=== PATIENT | male | born 1950 | race Caucasian/White ===

== ENCOUNTER → 2021-04-21 13:51 | Outpatient (CLI) | payer MEDICARE, BC, SELFPAY ==
[2021-04-21 15:15] LABS: Basophils # 0.1 K/mm3 (0-0.2); Eosinophils # 0.1 K/mm3 (0.0-0.4); Eosinophils % 1.3 % (0.1-12.0); Hematocrit 46.6 % (42.0-52.0); Hemoglobin 15.3 g/dL (14.1-18.0); Lymphocytes # 1.4 K/mm3 (0.7-4.5); Lymphocytes % 27.7 % (10-50); Mean Corpuscular HGB Conc 32.9 g/dL (31.8-35.4); Mean Corpuscular Hemoglobin 31.5 pg (27.0-31.2); Mean Corpuscular Volume 95.8 fl (80-94); Mean Platelet Volume 8.4 fl (7.4-10.4); Monocytes # 0.4 K/mm3 (0.1-1.0); Monocytes % 7.9 % (1.7-9.3); Neutrophils # 3.2 K/mm3 (1.8-7.8); Neutrophils % 62.1 % (37.0-80.0); Platelet Count 289 K/mm3 (142-424); Red Blood Count 4.87 M/mm3 (4.60-6.20); Red Cell Distribution Width 13.5 % (11.5-17.5); White Blood Count 5.1 K/mm3 (4.8-10.8)
[2021-04-21 16:06] LABS: Chloride 100 mmol/L (98-107); Potassium 4.2 mmoL/L (3.5-5.1)
[2021-04-21 16:08] LABS: Alanine Aminotransferase 17 U/L (12-78); Aspartate Amino Transferase 34 U/L (17-59); Blood Urea Nitrogen 21 mg/dl (9-20); Estimated Glomerular Filt Rate 83 ml/min (>60); GFR (African American) 100 ML/MIN (>60)
[2021-04-21 16:09] LABS: Albumin Level 4.4 g/dl (3.5-5.0); Albumin/Globulin Ratio 1.9 (1.1-1.8); Alkaline Phosphatase 48 U/L (38-126); Bilirubin,Total 0.8 mg/dl (0.2-1.3); Calcium 8.5 mg/dl (8.4-10.2); Carbon Dioxide 30 mmol/L (22.0-30.0); Cholesterol 105 mg/dl (140-200); Globulin 2.3 g/dL (1.3-3.2); Glucose 78 mg/dl (74-100); HDL Cholesterol 35 mg/dl (40-60); Total Protein,Serum 6.7 g/dl (6.3-8.2); Triglycerides 67 mg/dl (30-150); VLDL Cholesterol 13 mg/dL (0-40)
[2021-04-21 16:20] LABS: Direct LDL Cholesterol 60.39 mg/dL (100-129)
[2021-04-21 16:30] LABS: Anion Gap 10.2 mEq/L (5-15); Sodium 136 mmol/L (136-145)
== END ==
PROVIDERS: Visit Provider Internal Medicine
DX: I25.10 Atherosclerotic heart disease of native coronary artery without angina pectoris (principal); I10 Essential (primary) hypertension; I73.9 Peripheral vascular disease, unspecified; E78.5 Hyperlipidemia, unspecified; N40.1 Benign prostatic hyperplasia with lower urinary tract symptoms; Z95.1 Presence of aortocoronary bypass graft
CPT/HCPCS: 80053; 80061; 85025

== ENCOUNTER 2021-07-26 10:54 | Emergency (ER) | payer MEDICARE, OTHER, SELFPAY ==
--- NOTE | 2021-07-26 11:15 | HMH.EDUTC ---
[facility] Disposition Clinical Impression: Exposure to COVID-19 virus Disposition: Home, Self-Care Condition on Discharge: Good Instructions: DI for COVID-19 (Suspected or Confirmed ), Preventing the Spread of Coronavirus Discharge Instructions Additional Instructions: Drink plenty of fluids. Take tylenol for pain or fever. Return if you begin to have difficulty breathing. Follow up with your regular doctor. GO TO THE ER FOR ANY WORSENING SYMPTOMS Quarantine until you know the results of your covid-19 test. If it is positive, the health department should call you and give you further instructions about your length of Quarantine and other things. Notify your school or workplace of your results and follow their instructions regarding return to work/school. Referrals: Renan Rosas MD [Primary Care Provider] - Time of Disposition: 11:24 Medical Decision Making - Medical Records Medical records reviewed: No: I reviewed the patient's medical records. - Sj Inquiry Pt receiving controlled substance: No Vital Signs: 07/26/21 11:26 Temperature 98.2 F Temperature Source Oral Pulse Rate [Left Radial] 58 L Respiratory Rate 19 Blood Pressure [Right Arm] 119/69 Blood Pressure Mean [Right Arm] 85 02 Sat by Pulse Oximetry 99 - Lab Data Lab results reviewed: Yes: I reviewed the patient's lab results. [facility] HPI - General Stated complaint: covid test Time Seen by Provider: 07/26/21 11:15 - History of Present Illness Provider Complaint: His son-in-law tested + for covid-19 yesterday. He has been with him a lot over the past week. - Related Data Allergies Allergy/AdvReac Type Severity Reaction Status Date / Time PCN (PENICILLIN) Allergy Unknown I-RASH Uncoded 02/28/17 15:40 [facility] History - Hepatitis A Screen Attestation statement:: This patient has been screened for Hepatitis A risk factors. I have reviewed the patient's past medical history: Yes ROS Obtained: Yes All systems reviewed & no additional complaints - Constitutional Constitutional: Reports system reviewed and no additional complaints, except as docu - Eyes Eyes: Reports system reviewed and no additional complaints, except as docu - ENT Ears, Nose, Mouth, and Throat: Reports system reviewed and no additional complaints, except as docu - Cardiovascular Cardiovascular: Reports system reviewed and no additional complaints, except as docu - Respiratory Respiratory: Reports system reviewed and no additional complaints, except as docu - Gastrointestinal Gastrointestingal: Reports: system reviewed and no additional complaints, except as docu Physical Exam - General General appearance: alert, in no apparent distress - Head Head exam: atraumatic, normocephalic, normal inspection - Eye Eye exam: Present: normal appearance, PERRL, EOMI - ENT ENT exam: Present: normal exam, normal oropharynx, mucous membranes moist, TM's normal bilaterally, normal external ear exam - Neck Neck exam: Present: normal inspection, full ROM, trachea midline. Absent: meningismus, lymphadenopathy - Chest Chest inspection: Present: normal inspection, symmetric chest wall rise. Absent: tenderness - Respiratory Respiratory exam: Present: normal lung sounds bilaterally. Absent: respiratory distress - Cardiovascular Cardiovascular exam: Present: regular rate, normal rhythm. Absent: JVD - Abdominal Exam Abdominal exam: Present: soft, normal bowel sounds. Absent: distention, tenderness, guarding - Extremities Exam Extremities exam: Present: normal inspection, full ROM, normal capillary refill. Absent: calf tenderness - Back Exam Back exam: Present: normal inspection. Absent: tenderness - Neurological Exam Neurological exam: Present: alert, oriented X3 - Psychiatric Psychiatric exam: Present: normal affect, normal mood - Skin Skin exam: Present: warm, dry, intact, normal color - Lymphatic Lymphatic Findings: no joanna
[2021-07-26 11:26] VITALS: BP 119/69; PULSE 58; RESP 19; TEMP 36.8; O2SAT 99; BMI 26.6
[2021-07-26 11:31] VITALS: BP 119/69; PULSE 58; RESP 19; TEMP 36.8
[2021-07-26 12:49] LABS: Adenovirus,PCR Not Detected (NotDetected); Bordetella Pertussis Not Detected (NotDetected); Chlamydophila Pneumoniae, PCR Not Detected (NotDetected); Coronavirus 19, PCR Not Detected (NotDetected); Coronavirus 229E Not Detected (NotDetected); Coronavirus NL63 Not Detected (NotDetected); Coronavirus OC43 Not Detected (NotDetected); Coronovirus HKU1,PCR Not Detected (NotDetected); Human Metapneumovirus Not Detected (NotDetected); Influenza A, PCR Not Detected (NotDetected); Influenza AH1, 2009 Not Detected (NotDetected); Influenza AH1, PCR Not Detected (NotDetected); Influenza AH3,PCR Not Detected (NotDetected); Influenza B, PCR Not Detected (NotDetected); Mycoplasma Pneumoniae, PCR Not Detected (NotDetected); Parainfluenza 1, PCR Not Detected (NotDetected); Parainfluenza 2, PCR Not Detected (NotDetected); Parainfluenza 3, PCR Not Detected (NotDetected); Parainfluenza 4, PCR Not Detected (NotDetected); Respiratory Syncytial Virus Not Detected (NotDetected); Rhinovirus/Enterovirus Not Detected (NotDetected)
== END 2021-07-26 11:32 | disposition home or self-care (01) ==
PROVIDERS: Emergency Provider Nurse Practitioner Family; PCP Internal Medicine
DX: Z03.89 Encounter for observation for other suspected diseases and conditions ruled out (principal); Z88.0 Allergy status to penicillin; Z20.822 Contact with and (suspected) exposure to COVID-19
CPT/HCPCS: 87581; 87632; 87798; 99213; C9803; G0463; U0003; U0005

== ENCOUNTER → 2021-10-19 12:52 | Outpatient (CLI) | payer MEDICARE, OTHER, SELFPAY ==
[2021-10-19 14:45] LABS: Alanine Aminotransferase 14 U/L (12-78); Albumin/Globulin Ratio 1.7 (1.1-1.8); Alkaline Phosphatase 56 U/L (38-126); Anion Gap 8.2 mEq/L (5-15); Aspartate Amino Transferase 27 U/L (17-59); Bilirubin,Total 0.6 mg/dl (0.2-1.3); Blood Urea Nitrogen 19 mg/dl (9-20); Calcium 9.1 mg/dl (8.4-10.2); Carbon Dioxide 30 mmol/L (22.0-30.0); Chloride 104 mmol/L (98-107); Chol/HDL Ratio 2.8 (1-3.5); Cholesterol 97 mg/dl (140-200); Estimated Glomerular Filt Rate 83 ml/min (>60); GFR (African American) 100 ML/MIN (>60); Globulin 2.4 g/dL (1.3-3.2); Glucose 83 mg/dl (74-100); HDL Cholesterol 35 mg/dl (40-60); Potassium 4.2 mmoL/L (3.5-5.1); Sodium 138 mmol/L (136-145); Total Protein,Serum 6.4 g/dl (6.3-8.2); Triglycerides 57 mg/dl (30-150); VLDL Cholesterol 11 mg/dL (0-40)
[2021-10-21 09:44] LABS: Direct LDL Cholesterol 45 mg/dL (100-129)
== END ==
PROVIDERS: PCP Internal Medicine; Visit Provider Internal Medicine
DX: I25.10 Atherosclerotic heart disease of native coronary artery without angina pectoris (principal); I10 Essential (primary) hypertension; I73.9 Peripheral vascular disease, unspecified; E78.5 Hyperlipidemia, unspecified; N40.1 Benign prostatic hyperplasia with lower urinary tract symptoms; Z12.5 Encounter for screening for malignant neoplasm of prostate
CPT/HCPCS: 80053; 80061; G0103

== ENCOUNTER 2022-02-05 10:39 | Emergency (ER) | payer MEDICARE, OTHER, SELFPAY ==
[2022-02-05 12:40] VITALS: BP 145/85; PULSE 61; RESP 18; TEMP 36.7; O2SAT 98; BMI 27.3
--- NOTE | 2022-02-05 12:41 | EXP.UTC ---
Discharge Plan Disposition Patient Disposition: Home, Self-Care Condition: Good Prescriptions Prescriptions: New benzonatate 100 mg capsule 100 mg PO TID PRN (Reason: cough) Qty: 30 0RF prednisone 10 mg tablet 10 mg PO BID 5 Days Qty: 10 0RF azithromycin [Zithromax Z-Brayan] 250 mg tablet See Rx Instructions .ROUTE .COMPLEX 5 Days Qty: 6 0RF Rx Instructions: For 250 mg dose pack: take 500 mg today (day 1), then 250 mg for 4 days (days 2-5) Referrals Follow up/Referrals: Renan Rosas MD [Primary Care Provider] - See instructions Activity Restrictions/Add. Instructions Additional Instructions/Restrictions: *Monitor Temp, Over the counter Motrin or Tylenol as directed/as needed Tylenol every 4 hours and Motrin every 6 hours (as long as your family doctor has told you that you can take it) for fever or pain. and straight to ER if unable to lower temp less than 101.0 after medication given *Warm salt water gargles may help to soothe the throat *Throat Lozenges? *Warm fluids like tea with honey may help to soothe the throat? *Sleep elevated *Humidifier/Vaporizer Take medication as prescribed Follow up IMMEDIATELY for new or worsening symptoms or no Noticeable improvement over the next 48-72 hours. 911 for difficulty breathing or swallowing Clinical Impressions Clinical Impression: Sinusitis Instructions Patient Instructions: DI for Sinusitis, Sinusitis Discharge ED Provider: Emelina Washington [facility] General Stated complaint: cough, congestion Time Seen by Provider: 02/05/22 12:41 History of Present Illness Provider Complaint: Patient states that he has been having sinus congestion and pressure, cough sinus congestion for several days States that is having similar symptoms so they came in to get checke dout Related Data Previous Rx's Medication Instructions Recorded azithromycin 250 mg tablet See Rx Instructions PO .COMPLEX 5 02/05/22 (Zithromax Z-Brayan) days #6 tabs benzonatate 100 mg capsule 100 mg PO TID PRN cough #30 caps 02/05/22 prednisone 10 mg tablet 10 mg PO BID 5 days #10 tabs 02/05/22 Allergies Allergy/AdvReac Type Severity Reaction Status Date / Time Penicillins Allergy Verified 02/05/22 13:01 [facility] Medical History (Updated 02/05/22 @ 13:12 by Emelina Washington APRN) History of heart attack Hyperlipidemia Hypertension Kidney stone Surgical History (Updated 02/05/22 @ 13:00 by Alexandria Reis, RN) History of cardiac catheterization History of open heart surgery Social History (Updated 02/05/22 @ 13:00 by Alexandria Reis, RN) Smoking Status: Current every day smoker alcohol intake: never current occupational status: other Travel in the last 8 weeks: None ROS Obtained: Yes All systems reviewed & no additional complaints except as documented and Yes Systems reviewed as appropriate & no additional complaints except as documented Constitutional Constitutional: Reports system reviewed and no additional complaints, except as documented, Reports as per HPI and Reports fever(s) ENT Ears, Nose, Mouth, and Throat: Reports system reviewed and no additional complaints, except as documented, Reports as per HPI, Reports sinus pain and Reports sinus pressure Cardiovascular Cardiovascular: Reports system reviewed and no additional complaints, except as documented and Reports as per HPI Respiratory Respiratory: Reports system reviewed and no additional complaints, except as documented, Reports as per HPI and Reports cough Gastrointestinal Gastrointestingal: Reports system reviewed and no additional complaints, except as documented and as per HPI Physical Exam General General appearance: alert and in no apparent distress Expanded ENT Exam Nose exam: Present sinus tenderness Respiratory Respiratory exam: Present normal lung sounds bilaterally; Absent respiratory distress or wheezes Cardiovascular Cardiovascular exam: Present
[2022-02-05 13:15] VITALS: BP 145/85; PULSE 61; RESP 18; TEMP 36.7; O2SAT 98
== END 2022-02-05 13:18 | disposition home or self-care (01) ==
PROVIDERS: Emergency Provider Nurse Practitioner; PCP Internal Medicine
DX: J32.9 Chronic sinusitis, unspecified (principal)
CPT/HCPCS: 99212; G0463

== ENCOUNTER → 2022-04-22 12:12 | Outpatient (CLI) | payer MEDICARE, OTHER, SELFPAY ==
[2022-04-22 12:32] LABS: Basophils # 0.1 K/mm3 (0-0.2); Eosinophils # 0.1 K/mm3 (0.0-0.4); Eosinophils % 1.1 % (0.1-12.0); Hematocrit 45.5 % (42.0-52.0); Hemoglobin 15.1 g/dL (14.1-18.0); Lymphocytes # 1.5 K/mm3 (0.7-4.5); Lymphocytes % 26.6 % (10-50); Mean Corpuscular HGB Conc 33.2 g/dL (31.8-35.4); Mean Corpuscular Hemoglobin 30.7 pg (27.0-31.2); Mean Corpuscular Volume 92.5 fl (80-94); Mean Platelet Volume 8.1 fl (7.4-10.4); Monocytes # 0.4 K/mm3 (0.1-1.0); Monocytes % 7.7 % (1.7-9.3); Neutrophils # 3.6 K/mm3 (1.8-7.8); Neutrophils % 63.6 % (37.0-80.0); Platelet Count 253 K/mm3 (142-424); Red Blood Count 4.92 M/mm3 (4.60-6.20); Red Cell Distribution Width 13.5 % (11.5-17.5); White Blood Count 5.6 K/mm3 (4.8-10.8)
[2022-04-22 13:35] LABS: Alanine Aminotransferase 14 U/L (12-78); Albumin Level 4.5 g/dl (3.5-5.0); Albumin/Globulin Ratio 1.8 (1.1-1.8); Alkaline Phosphatase 50 U/L (38-126); Anion Gap 7.9 mEq/L (5-15); Aspartate Amino Transferase 26 U/L (17-59); Bilirubin,Total 0.8 mg/dl (0.2-1.3); Blood Urea Nitrogen 21 mg/dl (9-20); Carbon Dioxide 32 mmol/L (22.0-30.0); Chloride 103 mmol/L (98-107); Chol/HDL Ratio 2.9 (1-3.5); Cholesterol 106 mg/dl (140-200); Estimated Glomerular Filt Rate 73 ml/min (>60); GFR (African American) 89 ML/MIN (>60); Globulin 2.5 g/dL (1.3-3.2); Glucose 89 mg/dl (74-100); HDL Cholesterol 37 mg/dl (40-60); Potassium 3.9 mmoL/L (3.5-5.1); Sodium 139 mmol/L (136-145); Triglycerides 78 mg/dl (30-150); VLDL Cholesterol 16 mg/dL (0-40)
[2022-04-22 13:45] LABS: Direct LDL Cholesterol 60.43 mg/dL (100-129)
== END ==
PROVIDERS: PCP Internal Medicine; Visit Provider Internal Medicine
DX: I25.10 Atherosclerotic heart disease of native coronary artery without angina pectoris (principal); I10 Essential (primary) hypertension; E78.5 Hyperlipidemia, unspecified; I73.9 Peripheral vascular disease, unspecified
CPT/HCPCS: 80053; 80061; 85025

== ENCOUNTER → 2022-10-19 14:30 | Outpatient (CLI) | payer MEDICARE, OTHER, SELFPAY ==
[2022-10-19 16:01] LABS: Alanine Aminotransferase 16 U/L (12-78); Albumin Level 4.5 g/dl (3.5-5.0); Alkaline Phosphatase 50 U/L (38-126); Anion Gap 12.5 mEq/L (5-15); Aspartate Amino Transferase 27 U/L (17-59); Bilirubin,Total 0.7 mg/dl (0.2-1.3); Blood Urea Nitrogen 21 mg/dl (9-20); Calcium 9.3 mg/dl (8.4-10.2); Carbon Dioxide 30 mmol/L (22.0-30.0); Chloride 102 mmol/L (98-107); Chol/HDL Ratio 3.1 (1-3.5); Cholesterol 106 mg/dl (140-200); Estimated Glomerular Filt Rate 83 ml/min (>60); GFR (African American) 100 ML/MIN (>60); Globulin 2.3 g/dL (1.3-3.2); Glucose 86 mg/dl (74-100); HDL Cholesterol 34 mg/dl (40-60); Potassium 4.5 mmoL/L (3.5-5.1); Sodium 140 mmol/L (136-145); Total Protein,Serum 6.8 g/dl (6.3-8.2); Triglycerides 59 mg/dl (30-150); VLDL Cholesterol 12 mg/dL (0-40)
[2022-10-19 16:15] LABS: Direct LDL Cholesterol 60.93 mg/dL (100-129)
[2022-10-19 16:32] LABS: Prostate Specific Ag Screen 3.6 ng/ml (0.0-4.0)
== END ==
PROVIDERS: PCP Internal Medicine; Visit Provider Internal Medicine
DX: I10 Essential (primary) hypertension (principal); Z12.5 Encounter for screening for malignant neoplasm of prostate; I25.10 Atherosclerotic heart disease of native coronary artery without angina pectoris; E78.5 Hyperlipidemia, unspecified; I73.9 Peripheral vascular disease, unspecified
CPT/HCPCS: 80053; 80061; G0103

== ENCOUNTER 2023-04-24 16:59 | Outpatient (CLI) | payer MEDICARE, OTHER, SELFPAY ==
[2023-04-24 17:29] LABS: Basophils % 0.6 % (0.1-2.0); Eosinophils # 0.1 K/mm3 (0.0-0.4); Eosinophils % 1.4 % (0.1-12.0); Hematocrit 45.3 % (42.0-52.0); Hemoglobin 15.5 g/dL (14.1-18.0); Lymphocytes # 1.5 K/mm3 (0.7-4.5); Lymphocytes % 27.9 % (10-50); Mean Corpuscular HGB Conc 34.3 g/dL (31.8-35.4); Mean Corpuscular Hemoglobin 32.4 pg (27.0-31.2); Mean Corpuscular Volume 94.4 fl (80-94); Mean Platelet Volume 9.2 fl (7.4-10.4); Monocytes # 0.5 K/mm3 (0.1-1.0); Monocytes % 9.5 % (1.7-9.3); Neutrophils # 3.2 K/mm3 (1.8-7.8); Neutrophils % 60.6 % (37.0-80.0); Platelet Count 237 K/mm3 (142-424); Red Cell Distribution Width 13.3 % (11.5-17.5); White Blood Count 5.3 K/mm3 (4.8-10.8)
[2023-04-24 17:48] LABS: Alanine Aminotransferase 16 U/L (12-78); Albumin Level 4.4 g/dl (3.5-5.0); Albumin/Globulin Ratio 1.9 (1.1-1.8); Aspartate Amino Transferase 30 U/L (17-59); Blood Urea Nitrogen 19 mg/dl (9-20); Calcium 9.5 mg/dl (8.4-10.2); Carbon Dioxide 30 mmol/L (22.0-30.0); Cholesterol 111 mg/dl (140-200); Estimated Glomerular Filt Rate 82 ml/min (>60); GFR (African American) 100 ML/MIN (>60); Globulin 2.3 g/dL (1.3-3.2); Glucose 78 mg/dl (74-100); Potassium 4.4 mmoL/L (3.5-5.1); Total Protein,Serum 6.7 g/dl (6.3-8.2); Triglycerides 73 mg/dl (30-150); VLDL Cholesterol 15 mg/dL (0-40)
[2023-04-24 17:52] LABS: Alkaline Phosphatase 57 U/L (38-126); Anion Gap 12.4 mEq/L (5-15); Bilirubin,Total 0.8 mg/dl (0.2-1.3); Chloride 100 mmol/L (98-107); Chol/HDL Ratio 3.3 (1-3.5); HDL Cholesterol 34 mg/dl (40-60); Sodium 138 mmol/L (136-145)
[2023-04-24 18:00] LABS: Direct LDL Cholesterol 59.06 mg/dL (100-129)
== END 2023-04-24 23:59 ==
LOC: LAB.DROPOF 16:59
PROVIDERS: PCP Internal Medicine; Visit Provider Internal Medicine
DX: I11.9 Hypertensive heart disease without heart failure (principal); I25.10 Atherosclerotic heart disease of native coronary artery without angina pectoris; E78.5 Hyperlipidemia, unspecified; I50.1 Left ventricular failure, unspecified; I73.9 Peripheral vascular disease, unspecified
CPT/HCPCS: 80053; 80061; 85025

== ENCOUNTER 2023-10-23 15:47 | Outpatient (CLI) | payer MEDICARE, OTHER, SELFPAY ==
[2023-10-23 14:39] LABS: Albumin Level 4.1 g/dl (3.5-5.0); Chloride 103 mmol/L (98-107)
[2023-10-23 14:40] LABS: Potassium 4.5 mmoL/L (3.5-5.1); Sodium 138 mmol/L (136-145)
[2023-10-23 14:42] LABS: Alanine Aminotransferase 12 U/L (12-78); Albumin/Globulin Ratio 1.6 (1.1-1.8); Alkaline Phosphatase 60 U/L (38-126); Anion Gap 7.5 mEq/L (5-15); Aspartate Amino Transferase 27 U/L (17-59); Bilirubin,Total 0.7 mg/dl (0.2-1.3); Blood Urea Nitrogen 18 mg/dl (9-20); Carbon Dioxide 32 mmol/L (22.0-30.0); Estimated Glomerular Filt Rate 82 ml/min (>60); GFR (African American) 100 ML/MIN (>60); Globulin 2.5 g/dL (1.3-3.2); Total Protein,Serum 6.6 g/dl (6.3-8.2)
[2023-10-23 14:43] LABS: Calcium 9.1 mg/dl (8.4-10.2); Chol/HDL Ratio 3.1 (1-3.5); Cholesterol 121 mg/dl (140-200); Glucose 86 mg/dl (74-100); HDL Cholesterol 39 mg/dl (40-60); Triglycerides 52 mg/dl (30-150); VLDL Cholesterol 10 mg/dL (0-40)
[2023-10-23 14:54] LABS: Direct LDL Cholesterol 64.89 mg/dL (100-129)
[2023-10-23 15:56] LABS: Prostate Specific Ag Screen 4.3 ng/ml (0.0-4.0)
== END 2023-10-23 23:59 | disposition home or self-care (01) ==
LOC: LAB.DROPOF 15:47
PROVIDERS: PCP Internal Medicine; Visit Provider Internal Medicine
DX: E78.5 Hyperlipidemia, unspecified (principal); I25.10 Atherosclerotic heart disease of native coronary artery without angina pectoris; Z12.5 Encounter for screening for malignant neoplasm of prostate; Z72.0 Tobacco use
CPT/HCPCS: 80053; 80061; G0103

== ENCOUNTER 2024-04-09 10:18 | Outpatient (CLI) | payer MEDICARE, OTHER, SELFPAY ==
--- NOTE | 2024-04-09 10:23 | XR_ITS ---
FINAL REPORT CLINICAL HISTORY: Cough and wheezing FINDINGS: CHEST 2 VIEWS PA AND LATERAL The heart is normal in size. The patient is status post median sternotomy. There is a calcified granuloma in the left upper lobe. The lungs are otherwise clear. There is no pneumothorax. IMPRESSION: No acute process. Reviewed, Interpreted and Dictated by Cole Morales MD Transcribed by Kaye Lundberg Authenticated and [facility]
[2024-04-09 16:01] LABS: Basophils % 0.2 % (0.1-2.0); Eosinophils % 0.1 % (0.1-12.0); Hematocrit 42.9 % (42.0-52.0); Hemoglobin 14.4 g/dL (14.1-18.0); Lymphocytes # 0.8 K/mm3 (0.7-4.5); Lymphocytes % 9.3 % (10-50); Mean Corpuscular HGB Conc 33.6 g/dL (31.8-35.4); Mean Corpuscular Hemoglobin 29.8 pg (27.0-31.2); Mean Corpuscular Volume 88.6 fl (80-94); Mean Platelet Volume 9.8 fl (7.4-10.4); Monocytes # 0.9 K/mm3 (0.1-1.0); Monocytes % 9.8 % (1.7-9.3); Neutrophils # 7.1 K/mm3 (1.8-7.8); Neutrophils % 80.1 % (37.0-80.0); Platelet Count 313 K/mm3 (142-424); Red Blood Count 4.84 M/mm3 (4.60-6.20); White Blood Count 8.9 K/mm3 (4.8-10.8)
[2024-04-09 16:25] LABS: Alanine Aminotransferase 14 U/L (12-78); Albumin Level 4.2 g/dl (3.5-5.0); Albumin/Globulin Ratio 1.6 (1.1-1.8); Alkaline Phosphatase 66 U/L (38-126); Anion Gap 18.2 mEq/L (5-15); Aspartate Amino Transferase 32 U/L (17-59); Bilirubin,Total 0.7 mg/dl (0.2-1.3); Blood Urea Nitrogen 27 mg/dl (9-20); Calcium 9.5 mg/dl (8.4-10.2); Carbon Dioxide 27 mmol/L (22.0-30.0); Chloride 95 mmol/L (98-107); Chol/HDL Ratio 3.5 (1-3.5); Cholesterol 104 mg/dl (140-200); Estimated Glomerular Filt Rate 94 ml/min (>60); GFR (African American) 114 ML/MIN (>60); Globulin 2.6 g/dL (1.3-3.2); Glucose 76 mg/dl (74-100); HDL Cholesterol 30 mg/dl (40-60); Potassium 4.2 mmoL/L (3.5-5.1); Sodium 136 mmol/L (136-145); Total Protein,Serum 6.8 g/dl (6.3-8.2); Triglycerides 90 mg/dl (30-150); VLDL Cholesterol 18 mg/dL (0-40)
[2024-04-09 16:36] LABS: Direct LDL Cholesterol 57.08 mg/dL (100-129)
== END 2024-04-09 23:59 | disposition home or self-care (01) ==
LOC: LAB 10:20
PROVIDERS: PCP Internal Medicine; Visit Provider Internal Medicine
DX: R05.9 Cough, unspecified (principal); R06.2 Wheezing; R06.02 Shortness of breath; I25.10 Atherosclerotic heart disease of native coronary artery without angina pectoris; E78.5 Hyperlipidemia, unspecified
CPT/HCPCS: 71046; 80053; 80061; 85025

== ENCOUNTER 2024-04-23 10:48 | Outpatient (CLI) | payer MEDICARE, OTHER, SELFPAY ==
--- NOTE | 2024-04-23 10:53 | CT_ITS ---
FINAL REPORT TECHNIQUE: Postcontrast axial images of the chest were performed in a CTA protocol. This study was performed with techniques to keep radiation doses as low as reasonably achievable, (ALARA). Individualized dose reduction technique using automated exposure control or adjustment of mA and/or kV according to the patient's size were employed. CLINICAL HISTORY: Cough, shortness of air, mid back pain, COPD with FINDINGS: The heart is normal in size. No adenopathy is identified. There is a small left pleural effusion. The ascending aorta is enlarged with the aortic sinus measuring 51 mm. Mid ascending aorta measures 39 mm. There is no filling defect to suggest pulmonary embolism. There is a left lower lobe mass which occludes the left lower lobe bronchus measuring 43 x 56 mm. Findings are suspicious for primary lung tumor. There is associated postobstructive atelectasis and pneumonia. The right lung is clear. No acute osseous findings. IMPRESSION: No evidence for PE on this exam. Findings most suspicious for left lower lobe neoplasm without adenopathy. Lesion is amenable to imaging guided bronchoscopy for diagnosis. Reviewed, Interpreted and Dictated by Stas Cunningham MD Transcribed by Azalea Simpson Authenticated and . [facility]
[2024-04-23] MEDS: IOPAMIDOL-370 (76%);100ML BOTTLE 85 ML IV (11:05)
[2024-04-23] MEDS: 0.9 % SODIUM CHLORIDE 50 ML VIAL IV (11:05)
[2024-04-23] MEDS: SODIUM CHLORIDE 0.9% 10ML SYR (RAD ONLY) 10 ML IV (11:05)
== END 2024-04-23 23:59 | disposition home or self-care (01) ==
LOC: RAD 10:49
PROVIDERS: PCP Internal Medicine; Visit Provider Internal Medicine
DX: J44.1 Chronic obstructive pulmonary disease with (acute) exacerbation (principal); R06.02 Shortness of breath; R05.9 Cough, unspecified; M54.6 Pain in thoracic spine
CPT/HCPCS: 71275; Q9967

== ENCOUNTER 2024-05-29 14:39 | Outpatient (CLI) | payer MEDICARE, OTHER, SELFPAY ==
[2024-05-29] MEDS: ALBUTEROL 0.083% 2.5 MG/3 ML NEB IH (15:57)
== END 2024-05-29 23:59 | disposition home or self-care (01) ==
LOC: RT 14:39
PROVIDERS: PCP Internal Medicine; Visit Provider Internal Medicine Hematology & Oncology
DX: C34.90 Malignant neoplasm of unspecified part of unspecified bronchus or lung (principal); C79.70 Secondary malignant neoplasm of unspecified adrenal gland
CPT/HCPCS: 94060; 94726; 94729; J7613

== ENCOUNTER 2024-06-15 12:56 | Emergency (ER) | payer MEDICARE, OTHER, SELFPAY ==
[2024-06-15] VITALS (7 sets, daily range): BP systolic 106–132; BP diastolic 53–82; PULSE 72–85; RESP 16–20; TEMP 36.5; O2SAT 97–98; BMI 25.8
[2024-06-15 13:23] LABS: Chloride 95 mmol/L (98-107)
--- NOTE | 2024-06-15 13:23 | ECG_ITS ---
APPROVED REPORT Exam: Resting ECG HR:75 bpm ECG Measurements Heart Rate 75 AXES TX 160 P 78 QRSd 110 QRS 68 QT 382 T -37 QTc 411 Conclusion SINUS RHYTHM WITH OCCASIONAL VENTRICULAR PREMATURE COMPLEXES Nonspecific ST changes without acute STEMI. Electronically signed by : BRENDA ZELAYA, 06/15/2024 16:34:34
[2024-06-15 13:24] LABS: Albumin Level 3.9 g/dl (3.5-5.0); Basophils % 0.4 % (0.1-2.0); Eosinophils # 0.1 K/mm3 (0.0-0.4); Eosinophils % 0.8 % (0.1-12.0); Hematocrit 35.7 % (42.0-52.0); Hemoglobin 12.2 g/dL (14.1-18.0); Lymphocytes # 0.6 K/mm3 (0.7-4.5); Lymphocytes % 6.2 % (10-50); Mean Corpuscular HGB Conc 34.2 g/dL (31.8-35.4); Mean Corpuscular Hemoglobin 29.7 pg (27.0-31.2); Mean Corpuscular Volume 86.9 fl (80-94); Mean Platelet Volume 9.5 fl (7.4-10.4); Monocytes # 0.4 K/mm3 (0.1-1.0); Monocytes % 4.3 % (1.7-9.3); Neutrophils # 9.1 K/mm3 (1.8-7.8); Neutrophils % 87.6 % (37.0-80.0); Platelet Count 320 K/mm3 (142-424); Potassium 3.9 mmoL/L (3.5-5.1); Red Blood Count 4.11 M/mm3 (4.60-6.20); Red Cell Distribution Width 12.9 % (11.5-17.5); Sodium 133 mmol/L (136-145); White Blood Count 10.3 K/mm3 (4.8-10.8)
[2024-06-15] MEDS: PANTOPRAZOLE 40MG VIAL 40 MG IV (13:24)
[2024-06-15] MEDS: GABAPENTIN 300MG CAPSULE 300 MG PO (13:24)
[2024-06-15] MEDS: SODIUM CHLORIDE 0.9% 10ML VIAL 10 ML IV (13:24)
[2024-06-15] MEDS: BELLADONNA ALKALOIDS 60 ML ML PO (13:24)
[2024-06-15 13:26] LABS: Alanine Aminotransferase 16 U/L (12-78); Alkaline Phosphatase 57 U/L (38-126); Anion Gap 9.9 mEq/L (5-15); Aspartate Amino Transferase 23 U/L (17-59); Bilirubin,Total 1.1 mg/dl (0.2-1.3); Blood Urea Nitrogen 23 mg/dl (9-20); Carbon Dioxide 32 mmol/L (22.0-30.0); Creatinine Clearance Estimated 72 mL/min (50-200); Estimated Glomerular Filt Rate 94 ml/min (>60); GFR (African American) 114 ML/MIN (>60)
[2024-06-15 13:27] LABS: Albumin/Globulin Ratio 1.3 (1.1-1.8); Calcium 9.5 mg/dl (8.4-10.2); Globulin 3.1 g/dL (1.3-3.2); Glucose 114 mg/dl (74-100)
[2024-06-15] MEDS: CHLORPROMAZINE 25MG TABLET 25 MG PO (13:27)
--- NOTE | 2024-06-15 13:34 | ED_ITS ---
Discharge Plan Disposition Patient Disposition: Home, Self-Care Condition: Good Prescriptions Prescriptions: New pantoprazole 40 mg tablet,delayed release (DR/EC) 40 mg PO DAILY Qty: 30 0RF chlorpromazine 25 mg tablet 25 mg PO Q6H PRN (Reason: hiccups) Qty: 30 0RF No Action lisinopril-hydrochlorothiazide 20-12.5 mg tablet 1 tab PO DAILY Qty: 90 1RF nitroglycerin 0.4 mg tablet, sublingual 0.4 mg sublingual Q5M Qty: 30 2RF Rx Instructions: do not exceed 3 doses per episode albuterol sulfate 90 mcg/actuation HFA aerosol inhaler 2 puff inhalation Q4-6H PRN (Reason: shortness of breath or wheezing) Qty: 8.5 1RF aspirin [Adult Aspirin Regimen] 81 mg tablet,delayed release (DR/EC) 81 mg PO DAILY prednisone 10 mg tablet 10 mg PO DIRECTED Qty: 32 0RF Rx Instructions: see taper instructions: 4 tabs po qam x 5 days; 3 tabs po qam x 2 days; 2 tabs po qam x 2 days; 1 tab po qam x 2 days; then stop levofloxacin 750 mg tablet 750 mg PO DAILY Qty: 7 0RF simvastatin 80 mg tablet See Rx Instructions .ROUTE .COMPLEX Qty: 90 1RF Dose Instruction: TAKE 1 TABLET BY MOUTH DAILY AT BEDTIME Rx Instructions: TAKE 1 TABLET BY MOUTH DAILY AT BEDTIME metoprolol succinate 50 mg tablet extended release 24 hr See Rx Instructions .ROUTE .COMPLEX Qty: 90 1RF Dose Instruction: TAKE 1 TABLET BY MOUTH DAILY Rx Instructions: TAKE 1 TABLET BY MOUTH DAILY hyoscyamine sulfate 0.125 mg tablet,disintegrating 0.125 mg PO DAILY Qty: 30 2RF hydrocodone-homatropine [Hycodan (with homatropine)] 5-1.5 mg tablet 1 tab PO Q4-6H PRN (Reason: cough) Qty: 60 0RF lorazepam 0.5 mg tablet 0.5 mg PO TID PRN (Reason: anxiety) Qty: 90 1RF Referrals Follow up/Referrals: Renan Rosas MD [Primary Care Provider] - See instructions Activity Restrictions/Add. Instructions Additional Instructions/Restrictions: You were evaluated in the emergency department today. 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 Follow-up closely with your primary care provider and your oncologist. Return to the emergency department for new or worsening symptoms Clinical Impressions Clinical Impression: Intractable hiccups, Hyponatremia Instructions Patient Instructions: DI for Hiccups Print Language Print Language: Samoan Discharge ED Provider: Nadia Shoemaker General Adult HPI General Chief complaint: PAIN Stated complaint: Hiccups x4 days after infusion, SOA Time Seen by Provider: 06/15/24 13:05 Mode of Arrival: Ambulatory Source of Information: Patient, Spouse and Medical Record Description of Symptoms (Recalled from ER Triage Doc. by RN): Pt presents to ER with persistant, uncontrolled hiccups since Chemotherapy tx on Monday. States the hiccups began on Mon when he woke up and he can not get them to go away. Today, he states they are so bad he gets it caught up in my throat and I gasp for breathe . He is not able to eat or drink d/t these episodes. He has tried multiple home remedies for the hiccups to no avail. History of Present Illness HPI narrative: This patient is a 74-year-old male with a history of lung cancer, COPD, AAA status postrepair, BPH, hypertension, hyperlipidemia presenting to the emergency department for evaluation with concern for hiccups. Patient started chemo and radiation last week and has had persistent uncontrolled hiccups. This has been going on for about 4 days. He has tried interventions at home, such as tablespoon of sugar, breathing exercises, other remedies but has not had any relief. His care team prescribed him chlorpromazine but he has not been able to get it because the pharmacy reports they will not have it until Monday. He denies any other concerns or complaints. Related Data Home Medications ?Medication ?Instructions ?Recorded ?Confirmed aspirin 81 mg tablet,delayed 81 mg PO DAILY 10/23/23 04/23/24 release (Adult Aspirin Regimen) Previous Rx's ?Medication ?Instructions ?Recorded metoprolol succinate 50 mg See Rx Instructions .Route 01/03/24 tablet,extended release 24 hr .COMPLEX #90 tabs simvastatin 80 mg tablet See Rx Instructions .Route 01/03/24 .COMPLEX #90 tabs albuterol sulfate 90 mcg/actuation 2 puff inhalation Q4-6H PRN 04/09/24 aerosol inhaler shortness of breath or wheezing #8.5 grams lisinopril 20 1 tab PO DAILY #90 tabs 04/09/24 mg-hydrochlorothiazide 12.5 mg tablet nitroglycerin 0.4 mg sublingual 0.4 mg sublingual Q5M #30 tabs 04/09/24 tablet hyoscyamine sulfate 0.125 mg 0.125 mg PO DAILY #30 tabs 04/10/24 disintegrating tablet levofloxacin 750 mg tablet 750 mg PO DAILY #7 tabs 04/23/24 prednisone 10 mg tablet 10 mg PO DIRECTED #32 tabs 04/23/24 hydrocodone-homatropine 5 mg-1.5 1 tab PO Q4-6H PRN cough #60 tabs 06/10/24 mg tablet (Hycodan (with homatropine)) lorazepam 0.5 mg tablet 0.5 mg PO TID PRN anxiety #90 tabs 06/10/24 chlorpromazine 25 mg tablet 25 mg PO Q6H PRN hiccups #30 tabs 06/15/24 pantoprazole 40 mg tablet,delayed 40 mg PO DAILY #30 tabs 06/15/24 release Allergies Allergy/AdvReac Type Severity Reaction Status Date / Time Penicillins Allergy Verified 04/23/24 10:01 [facility] Disclaimer: The information contained in this section may have been updated after the patient was seen, as this information can be updated by other users. Medical History Kidney stone History of heart attack Hyperlipidemia Hypertension Surgical History History of open heart surgery History of cardiac catheterization Social History Smoking Status: Current every day smoker alcohol intake: never current occupational status: other Travel in the last 8 weeks: None Have you lived/traveled outside [place] in past 30 days?: No Contact w/someone who lives/traveled outside [place] past 30 days?: No Exposure to someone with infectious disease in past 14 days?: No Do you have a fever (greater than 100.4 F or 38 C)?: No Have you tested positive for COVID-19: No Exposed to someone with COVID-19 in past 14 days?: No Do you have a sore throat?: No Do you have a cough?: No Do you have any weakness?: No Do you have any diarrhea?: No Are you experiencing any unusual bleeding?: No Do you have any muscle aches/pain?: No Do you have any abdominal pain?: No Are you experiencing loss of taste or smell?: No Other Medical History Have you received the Pneumonia Vaccine: No ROS Obtained: Yes All systems reviewed & no additional complaints except as documented Physical Exam General General appearance: alert and in no apparent distress Comment: Actively hiccuping Head Head exam: atraumatic and normocephalic Eye Eye exam: Present normal appearance, PERRL and EOMI ENT ENT exam: Present normal exam, normal oropharynx, mucous membranes moist and normal external ear exam Neck Neck exam: Present normal inspection, full ROM and trachea midline; Absent tenderness Chest Chest inspection: Present normal inspection and symmetric chest wall rise; Absent tenderness Respiratory Respiratory exam: Present normal lung sounds bilaterally; Absent respiratory distress, wheezes, stridor or accessory muscle use Cardiovascular Cardiovascular exam: Present regular rate and normal rhythm Abdominal Exam Abdominal exam: Present soft; Absent distention, tenderness or guarding Extremities Exam Extremities exam: Present normal inspection, full ROM and normal capillary refill; Absent tenderness or edema Back Exam Back exam: Present normal inspection and full ROM; Absent tenderness Neurological Exam Neurological exam: Present alert, oriented X3, CN II-XII intact and normal gait; Absent motor sensory deficit Psychiatric Psychiatric exam: Present normal affect and normal mood Skin Skin exam: Present warm and dry Medical Decision Making Medical Records Medical records reviewed: Yes I reviewed the patient's medical records. Screening: Per USPSTF and CDC recommendations, given the prevalence of disease in our region, it is our hospital?s policy to screen for HIV and viral Hepatitis for all patients aged 18 and over and those with ongoing risk factors. Sj Inquiry Pt receiving controlled substance: No Vital Signs: 06/15/24 13:03 06/15/24 13:07 06/15/24 13:30 Temperature 97.7 F Temperature Source Oral Pulse Rate 85 Pulse Rate [Right] 83 Respiratory Rate 20 Blood Pressure 132/82 126/81 Blood Pressure [Right Arm] 132/82 Blood Pressure Mean 102 Blood Pressure Mean [Right Arm] 98 Blood Pressure Source Blood Pressure Source [Right Arm] Automatic Cuff 02 Sat by Pulse Oximetry 97 97 98 Oxygen Delivery Method Room Air Room Air Room Air 06/15/24 14:00 06/15/24 14:30 06/15/24 14:31 Temperature 97.7 F Temperature Source Oral Pulse Rate 77 72 Pulse Rate [Right] Respiratory Rate 16 Blood Pressure 109/53 L 129/68 129/68 Blood Pressure [Right Arm] Blood Pressure Mean 71 88 Blood Pressure Mean [Right Arm] Blood Pressure Source Automatic Cuff Blood Pressure Source [Right Arm] 02 Sat by Pulse Oximetry 97 Oxygen Delivery Method Room Air 06/15/24 15:00 Temperature Temperature Source Pulse Rate Pulse Rate [Right] Respiratory Rate Blood Pressure 106/59 L Blood Pressure [Right Arm] Blood Pressure Mean 74 Blood Pressure Mean [Right Arm] Blood Pressure Source Blood Pressure Source [Right Arm] 02 Sat by Pulse Oximetry Oxygen Delivery Method Lab Data Lab results reviewed: Yes I reviewed the patient's lab results. Lab Results 06/15/24 13:10: WBC 10.3, RBC 4.11 L, Hgb 12.2 L, Hct 35.7 L, MCV 86.9, MCH 29.7, MCHC 34.2, RDW 12.9, Plt Count 320, MPV 9.5, Neut % (Auto) 87.6 H, Lymph % (Auto) 6.2 L, [place] % (Auto) 4.3, Eos % (Auto) 0.8, Baso % (Auto) 0.4, Neut # (Auto) 9.1 H, Lymph # (Auto) 0.6 L, [place] # (Auto) 0.4, Eos # (Auto) 0.1, Baso # (Auto) 0.0, Sodium 133 L, Potassium 3.9, Chloride 95 L, Carbon Dioxide 32 H, Anion Gap 9.9, BUN 23 H, Creatinine 0.80, Estimated Creat Clear 72, Estimated GFR 94, Est GFR ( Amer) 114, Glucose 114 H, Calcium 9.5, Total Bilirubin 1.1, AST 23, ALT 16, Alkaline Phosphatase 57, Total Protein 7.0, Albumin 3.9, Globulin 3.1, Albumin/Globulin Ratio 1.3, HCV Ab ÁNGEL w/Rflx PCR Qn Negative, HIV Ag/Ab Combo Qual Negative 06/15/24 13:10 06/15/24 13:10 Orders (Tests/Meds): ED MEDICATIONS Discontinued Medications Generic Name Dose Route Start Last Admin Trade Name Freq PRN Reason Stop Dose Admin Belladonna Alkaloids 60 ml 06/15/24 13:10 06/15/24 13:24 Belladonna Alkaloids 60 Ml Ml PO 06/15/24 13:11 60 ml ONCE ONE Administration Chlorpromazine HCl 25 mg 06/15/24 13:07 06/15/24 13:27 Chlorpromazine 25mg Tablet PO 06/15/24 13:08 25 mg ONCE ONE Administration Chlorpromazine HCl 25 mg 06/15/24 15:17 06/15/24 15:28 Chlorpromazine 25mg/Ml Amp IM 06/15/24 15:18 25 mg ONCE ONE Administration Gabapentin 300 mg 06/15/24 13:09 06/15/24 13:24 Gabapentin 300mg Capsule PO 06/15/24 13:10 300 mg ONCE ONE Administration Sodium Chloride 1,000 mls @ 999 mls/hr 06/15/24 13:32 06/15/24 13:48 Sod Chlor 0.9% 1000ml Bag IV 06/15/24 14:32 999 mls/hr .Q1H1M ONE Administration Metoclopramide HCl 5 mg 06/15/24 14:43 06/15/24 14:46 Metoclopramide 5mg Tablet PO 06/15/24 14:44 5 mg ONCE ONE Administration Pantoprazole Sodium 40 mg 06/15/24 13:07 06/15/24 13:24 Pantoprazole 40mg Vial IV 06/15/24 13:08 40 mg ONCE ONE Administration Sodium Chloride 10 ml 06/15/24 13:07 06/15/24 13:24 Sodium Chloride 0.9% 10ml Vial IV 07/15/24 13:06 10 ml NEEDED PRN Administration dilute protonix ORDERS Category Date Time Status CMP [Comprehensive Metabolic Panel] Stat Lab 06/15/24 13:10 Completed Complete Blood Count Auto Diff Stat Lab 06/15/24 13:10 Completed HIV Combo Stat Lab 06/15/24 13:10 Completed Hepatitis C Ab Qual. W/ RFX Stat Lab 06/15/24 13:10 Completed ECG Data Tracing #1: I reviewed this ECG and interpreted as documented below: Normal sinus rhythm with a ventricular rate of 75 bpm. PVC. No acute ST changes concerning for ischemia. ECG initial impression date: 06/15/24 ECG initial impression time: 13:25 Medical Decision Narrative: In summary, this patient is a 74-year-old male presenting to the Emergency Department for evaluation of hiccups. Differential diagnoses considered include but are not limited to chemo adverse reaction, hyponatremia, hypocalcemia, other electrolyte derangement, GERD, gastric distention. Ruling out the most morbid conditions drove assessment. It should be noted patient's history includes lung cancer which is not at goal therapy. This complicates all aspects of care by increasing patient's risk for morbidity. I reviewed patient's past medical records and noted prior PCP evaluation for maintenance of CAD, hypertension, hyperlipidemia, lung cancer. On exam, the patient is sitting upright. He is hiccuping actively, but vitals are reassuring on cardiac telemetry. Cardiopulmonary and abdominal exams are benign. Workup included CBC, CMP, EKG. EKG obtained is reassuring. Patient was given oral Thorazine, GI cocktail, IV PPI, and oral gabapentin to assess for improvement.. EKG obtained is reassuring. Labs obtained demonstrated very mild hyponatremia without other significant derangements. He was given a bolus of normal saline for this. On reassessment, he had resolution of hiccups. Unfortunately at time of discharge, they recurred. I then given a dose of IM Thorazine as well as oral Reglan. Hiccups are still persistent but improved. Ultimately, I feel we have excluded acute life-threatening pathology and he is appropriate for close follow-up with primary care and his oncologist. I did prescribe Thorazine as well as a PPI in case this could be related to gastric acid. He was given strict return precautions should his symptoms worsen. Critical Care Critical Care Time Critical Care Time: No
[2024-06-15] MEDS: 0.9 % SODIUM CHLORIDE 1000ML 1,000 ML 999 ML IV (13:48)
[2024-06-15 14:40] LABS: HIV Combo NEGATIVE (Negative)
[2024-06-15] MEDS: METOCLOPRAMIDE 5MG TABLET 5 MG PO (14:46)
[2024-06-15 14:48] LABS: Hepatitis C Ab Qual. W/ RFX NEGATIVE (Negative)
[2024-06-15] MEDS: CHLORPROMAZINE 25 MG/ML IM (15:28)
== END 2024-06-15 15:38 | disposition home or self-care (01) ==
PROVIDERS: Emergency Provider Emergency Medicine; PCP Internal Medicine
DX: R06.6 Hiccough (principal); R06.02 Shortness of breath; E87.1 Hypo-osmolality and hyponatremia; R91.8 Other nonspecific abnormal finding of lung field; J44.1 Chronic obstructive pulmonary disease with (acute) exacerbation; Z98.890 Other specified postprocedural states; Z95.5 Presence of coronary angioplasty implant and graft; Z95.1 Presence of aortocoronary bypass graft; Z72.0 Tobacco use
CPT/HCPCS: 80053; 85025; 86803; 87389; 93005; 96361; 96372; 96374; 99284; J2470; J3230; J7030

== ENCOUNTER 2024-09-05 13:50 | Outpatient (CLI) | payer MEDICARE, OTHER, SELFPAY ==
--- NOTE | 2024-09-05 | MR_ITS ---
FINAL REPORT TECHNIQUE: Multiplanar MR, without and with gadolinium enhancement CLINICAL HISTORY: STENTS SMALL CELL LUNG CANCER STAGING FINDINGS: Diffusion sequences show no signal abnormality to indicate acute infarct. There is mild generalized atrophy. There are few scattered punctate white matter signal changes, probably due to mild chronic microvascular disease. No mass, hemorrhage or edema is seen. Ventricles are normal. Major vascular flow voids are intact. Following contrast administration, no mass or abnormal enhancement is seen. IMPRESSION: No evidence of metastatic brain disease. Reviewed, Interpreted and Dictated by Stas Cunningham MD Transcribed by Kaye Lundberg Authenticated and [facility]
[2024-09-05 14:38] LABS: Blood Urea Nitrogen 18 mg/dl (9-20); Estimated Glomerular Filt Rate 94 ml/min (>60); GFR (African American) 114 ML/MIN (>60)
[2024-09-05] MEDS: GADOTERIDOL INJ 20ML SYRINGE 15 ML IV (15:19)
[2024-09-05] MEDS: SODIUM CHLORIDE 0.9% 10ML SYR (RAD ONLY) 10 ML IV (15:19)
== END 2024-09-05 23:59 | disposition home or self-care (01) ==
LOC: RAD 13:51
PROVIDERS: PCP Internal Medicine; Visit Provider Internal Medicine Hematology & Oncology
DX: C34.32 Malignant neoplasm of lower lobe, left bronchus or lung (principal); G31.9 Degenerative disease of nervous system, unspecified
CPT/HCPCS: 36415; 70553; 82565; 84520; A9576

== ENCOUNTER 2024-11-27 16:44 | Outpatient (CLI) | payer MEDICARE, OTHER, SELFPAY ==
--- NOTE | 2024-11-27 17:23 | XR_ITS ---
PROCEDURE INFORMATION: Exam: XR Chest Exam date and time: 11/27/2024 5:15 PM Age: 74 years old Clinical indication: Cough and shortness of breath TECHNIQUE: Imaging protocol: Radiologic exam of the chest. Views: 2 views. COMPARISON: CT ANGIO CHEST PE PROTOCOL 04/23/2024 10:58 AM FINDINGS: Lungs: Scattered nodular opacities in the lungs. Bilateral apical scarring. Pleural spaces: There is a partially loculated left pleural effusion. Possible tiny right pleural effusion. Heart/Mediastinum: Unremarkable. No cardiomegaly. Vasculature: Vascular calcifications. Bones/joints: Status post median sternotomy and coronary artery bypass. IMPRESSION: 1. There is a partially loculated left pleural effusion. If there is clinical suspicion for empyema or malignant effusion, recommend image guided fluid sampling. 2. Scattered nodular opacities in the lungs. Metastatic disease versus multifocal infection would be most likely.
== END 2024-11-27 23:59 | disposition home or self-care (01) ==
LOC: RAD 16:45
PROVIDERS: PCP Internal Medicine; Visit Provider Internal Medicine
DX: C34.90 Malignant neoplasm of unspecified part of unspecified bronchus or lung (principal); J44.1 Chronic obstructive pulmonary disease with (acute) exacerbation; J90 Pleural effusion, not elsewhere classified; R91.8 Other nonspecific abnormal finding of lung field
CPT/HCPCS: 71046

== ENCOUNTER 2024-12-25 08:44 | Outpatient (CLI) | payer MEDICARE, OTHER, SELFPAY ==
--- NOTE | 2024-12-25 08:47 | XR_ITS ---
FINAL REPORT CLINICAL HISTORY: Shortness of breath, pneumonia follow-up hx of bypass Pt returning to office COMPARISON: 11/27/2024 FINDINGS: PA and lateral views of the chest were obtained. There are changes from prior median sternotomy. The heart is stable in size. There has been interval increase in nodular opacities in the right upper lobe. New left perihilar opacity with slight increase of the left pleural effusion is noted. There is no pneumothorax. No acute osseous abnormality is identified. IMPRESSION: Worsening right upper lobe opacity and left perihilar opacity could represent pneumonia, although neoplasm is not excluded. Reviewed, Interpreted and Dictated by Radha Coates MD Transcribed by Jessie Mcbride Authenticated and [facility]
== END 2024-12-25 23:59 | disposition home or self-care (01) ==
LOC: RAD 08:45
PROVIDERS: PCP Internal Medicine; Visit Provider Internal Medicine
DX: J18.9 Pneumonia, unspecified organism (principal); J96.01 Acute respiratory failure with hypoxia; Z95.1 Presence of aortocoronary bypass graft
CPT/HCPCS: 71046

== ENCOUNTER 2024-12-25 09:59 | Inpatient (IN) | payer MEDICARE, OTHER, SELFPAY ==
--- OUTSIDE RECORDS SUMMARY | 2024-11-19 08:55 | XMS_ITS | Encounter Summary ---
Author Organization [employer] ([place], [place], [place], [place]) Address [address] [place] [address] Care Team Providers Care Felt Carbonizer Name Role Phone Renan Rosas MD Primary Care Provider [phone] Guy Cook MD Unavailable [phone] Claire Ferguson MD Unavailable Dani Pham MD Unavailable [phone] Reason for Visit * Reason Comments Lung Cancer Encounter Details Date Type Department Care Team (Latest Contact Info) Description 11/19/2024 8:55 AM EDT - 11/19/2024 11:59 PM EDT Hospital Encounter [facility] [place] [address] [place] [address] Mayito Griffin MD [address] [place] [address] Malignant neoplasm of lower lobe, left bronchus or lung (HCC) (Primary Dx) Discharge Disposition: Home or Self Care Social History Tobacco Use Types Packs/Day Years Used Date Smoking Tobacco: Every Day Cigarettes 1 56.8 Started: 1968 Smokeless Tobacco: Never Alcohol Use Standard Drinks/Week Comments Never 0 (1 standard drink = 0.6 oz pur e alcohol) Sex and Gender Information Value Date Recorded Sex Assigned at Not on file Legal Sex Male 11:40 AM CDT Gender Identity Not on file Sexual Orientation Not on file documented as of this encounter Last Filed Vital Signs Vital Sign Reading Time Taken Comments Blood Pressure 175/89 11/19/2024 9:06 AM EDT Pulse 71 11/19/2024 9:06 AM EDT Temperature 37.3 C (99.1 F) 11/19/2024 9:06 AM EDT Respiratory Rate 18 11/19/2024 9:06 AM EDT Oxygen Saturation 92% 11/19/2024 9:06 AM EDT Inhaled Oxygen Concentration - - Weight 76.7 kg (169 lb) 11/19/2024 9:06 AM EDT Height 175.3 cm (5' 9 ) 11/19/2024 9:06 AM EDT Body Mass Index 24.96 11/19/2024 9:06 AM EDT documented in this encounter Medications at Time of Discharge albuterol 90 mcg/actuation inhaler Inhale by mouth every 6 (six) hours as needed for wheezing. aspirin 81 MG EC tablet Take 1 tablet (81 mg total) by mouth daily. budesonide-formo teroL (Symbicort) 160-4.5 mcg/actuation inhaler Inhale 2 puffs by mouth 2 (two) times daily Rinse mouth with water after each use. 7.2 g 6 08/15/2024 budesonide-glyco pyr-formoterol (Breztri Aerosphere) 160-9-4.8 mcg/actuation HFAA Inhale by mouth. HYDROcodone-acet aminophen (NORCO) 5-325 mg per tablet Take 1 tablet by mouth every 6 (six) hours as needed for pain. hyoscyamine (LEVSIN) 0.125 mg/5 mL elix elixir Take 5 mLs (125 mcg total) by mouth daily. metoprolol succinate (TOPROL-XL) 50 MG 24 hr tablet Take 1 tablet (50 mg total) by mouth daily. nitroglycerin (NITROSTAT) 0.[address] 1 tablet (0.4 mg total) under the tongue every 5 (five) minutes as needed for chest pain Put 1 pill under tongue every 5min as needed for chest pain.No more than 3 doses in 15min.Call 911 if pain unrelieved 5min after 1st dose. simvastatin (ZOCOR) 10 MG tablet Take 1 tablet (10 mg total) by mouth nightly. documented as of this encounter Progress Notes * Mayito Griffin MD - 11/19/2024 9:00 AM EDT Radiation Oncology Follow Up Evaluation Patient Name: Filemon Oviedo : 1950 Date: 11/19/2024 Referring Physicians: Patient Care Team: Renan Rosas MD as PCP - General (General Internal Medicine) Guy Cook MD as Surgeon (Cardiothoracic Surgery) Claire Ferguson MD as Consulting Physician (Pulmonary Disease) Dani Pham MD as Medical Oncologist (Hematology and Oncology) Diagnosis: 1. Malignant neoplasm of lower lobe, left bronchus or lung (HCC) Stage: Cancer Staging Malignant neoplasm of lower lobe, left bronchus or lung (HCC) Staging form: Lung, AJCC V9 - Clinical stage from 05/16/2024: Stage IIB (cT3, cN0, cM0) - Unsigned Previous Radiation History: 6000 cGy in 30 fractions to the left lower lobe mass Start date: 06/10/2024 End date: 07/19/2024 Cancer History: 04/23/2024: CT PE for shortness of breath demonstrates left lower lobe mass occluding bronchus measuring 5.6 x 4.3 cm 05/08/2024: EBUS with biopsy of left lower lobe positive for moderately differentiated squamous cellcarcinoma, PDL-1 TPS 70% 05/16/2024: PET/CT demonstrates hypermetabolic left lung mass along with indeterminate right adrenal nodule 06/10/2024 - 07/19/2024: Concurrent chemoradiation with carboplatin/paclitaxel 08/2024: Durvalumab x 1 cycle, discontinued secondary to dizziness and headaches History of Present Illness: Mr. Oviedo is a pleasant 74 y.o. year old male. He was initially undergoing workup for increasing shortness of breath in April 2024. A CT PE demonstrated a left lower lobe mass occluding the bronchus measuring 5.6 x 4.3 cm. He underwent EBUS with biopsy demonstratingmoderately differentiated squamous cell carcinoma. PD-L1 TPS was 70%. He was staged with PET/CT which showed hypermetabolism in the left lung mass and an indeterminate right adrenal nodule. There is no other evidence of regional or distant metastatic disease. His case was discussed at a multidisciplinary tumor board with recommendation was made to proceed with concurrent chemoradiation possibly with neoadjuvant intent. He completed chemoradiation as described above in July 2024. At the conclusion of treatment he declined reassessment for surgical resection. He started adjuvant immunotherapy in August 2024 but discontinued after 1 cycle due to dizziness and headaches and has since been on observation. He presents today for routine follow-up after PET/CT. Interval History: Symptomatically, Mr. Oviedo is doing well. He has had some increasing dyspnea lately after cleaning out his wood shop and is scheduled to see his composition stone applicator later today. He otherwise denies any issues related to his radiation. Allergies: Allergies Allergen Reactions Penicillin Medications: Current Outpatient Medications: albuterol 90 mcg/actuation inhaler, Inhale by mouth every 6 (six) hours as needed for wheezing., Disp: , Rfl: aspirin 81 MG EC tablet, Take 1 tablet (81 mg total) by mouth daily., Disp: , Rfl: budesonide-formoteroL (Symbicort) 160-4.5 mcg/actuation inhaler, Inhale 2 puffs by mouth 2 (two) times daily Rinse mouth with water after each use., Disp: 7.2 g, Rfl: 6 zrxaaljodc-hzwcrlbu-bnyhcwawlx (Breztri Aerosphere) 160-9-4.8 mcg/actuation HFAA, Inhale by mouth.,Disp: , Rfl: HYDROcodone-acetaminophen (NORCO) 5-325 mg per tablet, Take 1 tablet by mouth every 6 (six) hours as needed for pain., Disp: , Rfl: hyoscyamine (LEVSIN) 0.125 mg/5 mL elix elixir, Take 5 mLs (125 mcg total) by mouth daily., Disp: ,Rfl: metoprolol succinate (TOPROL-XL) 50 MG 24 hr tablet, Take 1 tablet (50 mg total) by mouth daily., Disp: , Rfl: nitroglycerin (NITROSTAT) 0.4 MG SL tablet, Place 1 tablet (0.4 mg total) under the tongue every 5 (five) minutes as needed for chest pain Put 1 pill under tongue every 5min as needed for chest pain.No more than 3 doses in 15min.Call 911 if pain unrelieved 5min after 1st dose., Disp: , Rfl: simvastatin (ZOCOR) 10 MG tablet, Take 1 tablet (10 mg total) by mouth nightly., Disp: , Rfl: Labs: No visits with results within 1 Week(s) from this visit. Latest known visit with results is: Office Visit on 09/09/2024 Component Date Value Ref Range Status WBC 09/09/2024 5.6 4.5 - 11.0 K/??L Final RBC 09/09/2024 3.94 (L) 4.50 - 5.50 M/??L Final Hemoglobin 09/09/2024 12.7 (L) 13.5 - 17.5 GM/DL Final Hematocrit 09/09/2024 38.5 (L) 41.0 - 53.0 % Final MCV 09/09/2024 98 80 - 100 fL Final MCH 09/09/2024 32.2 26.0 - 34.0 pg Final MCHC 09/09/2024 33.0 31.0 - 37.0 GM/DL Final RDW 09/09/2024 14.4 12.0 - 16.8 % Final Platelets 09/09/2024 218 140 - 440 K/CU MM Final MPV 09/09/2024 9.2 6.7 - 10.8 fL Final % Neutros 09/09/2024 74 45 - 80 % Final % Lymphs 09/09/2024 14 (L) 15 - 45 % Final % Monos 09/09/2024 10 0 - 10 % Final % Eos 09/09/2024 1 0 - 5 % Final % Baso 09/09/2024 1 0 - 3 % Final # Neutros 09/09/2024 4.10 2.00 - 8.80 K/??L Final # Lymphs 09/09/2024 0.79 0.70 - 5.50 K/??L Final # Monos 09/09/2024 0.58 0.00 - 1.70 K/??L Final # Eos 09/09/2024 0.07 0.00 - 0.80 K/??L Final # Baso 09/09/2024 0.03 0.00 - 0.20 K/??L Final Sodium 09/09/2024 139 136 - 146 meq/L Final Potassium 09/09/2024 4.5 3.5 - 5.1 meq/L Final Chloride 09/09/2024 104 98 - 108 meq/L Final CO2 09/09/2024 31 (H) 22 - 29 meq/L Final Anion Gap 09/09/2024 9 9 - 20 Final BUN 09/09/2024 17 7 - 18 mg/dL Final Creatinine 09/09/2024 0.90 0.70 - 1.30 mg/dL Final BUN/Creatinine 09/09/2024 19 8 - 20 Final Glucose 09/09/2024 83 70 - 105 mg/dL Final Calcium Ionized (mg/dL) 09/09/2024 5.00 4.36 - 5.20 mg/dL Final Protein, Total 09/09/2024 6.8 6.4 - 8.2 gm/dL Final Albumin 09/09/2024 3.4 3.4 - 5.0 g/dL Final Total Bilirubin 09/09/2024 0.7 0.2 - 1.3 mg/dL Final Bilirubin, Direct 09/09/2024 0.2 0.0 - 0.2 mg/dL Final Alkaline Phosphatase 09/09/2024 70 27 - 136 U/L Final Globulin 09/09/2024 3.4 1.5 - 4.5 g/dL Final A/G Ratio 09/09/2024 1.0 (L) 1.1 - 2.5 Final AST 09/09/2024 23 5 - 37 U/L Final ALT 09/09/2024 26 12 - 78 U/L Final Imaging: Results for orders placed during the hospital encounter of 10/21/24 PET/CT Skull Base-Mid Thigh (Whole Body) Narrative PROCEDURE: PET/CT IMAGING, SKULL BASE TO MID THIGH INDICATION: Left lung cancer, restaging. TECHNIQUE: 15.01 mCi of 18-FDG was injected intravenously with a fasting blood glucose of 92 mg/dl. PET/CT images were obtained from skull base to mid thigh. COMPARISON: 05/16/2024 FINDINGS: There is no FDG avid cervical lymphadenopathy. There is been interval decrease in size and hypermetabolic activity in the medial left lower lobe mass. Residual hypermetabolism posterior to the descending thoracic aorta demonstrates a maximum SUV of 5.2. There has been partial reexpansion of the left lower lobe. There is new hypermetabolic airspace disease in the posterior lateral left upper lobe with a maximum SUV of 5.0. There is no thoracic hypermetabolic adenopathy. The liver, spleen, renal collecting systems, and bladder demonstrate expected FDG uptake. There is no suprarenal hypermetabolism to suggest adrenal metastasis. GI uptake is normal. There is no hypermetabolic abdominal or pelvic lymphadenopathy. No hypermetabolic bone lesions are identified. Impression 1. Improved disease burden in the left lower lobe with decreased size and hypermetabolic activity of the mass and partial reexpansion of the left lower lobe. 2. Hypermetabolic left upper lobe airspace disease is favored to be infectious or inflammatory. Malignancy is felt less likely but 3 month follow-up CT is recommended. These images were personally reviewed. Pathology: No new pathology for review. Performance Status: ECOG Performance Status: Fully active, able to carry on all pre-disease performance without restriction Physical Exam: Vitals: 11/19/24 0906 BP: (!) 175/89 BP Location: Left arm Patient Position: Sitting Cuff Size: Adult Pulse: 71 Resp: 18 Temp: 99.1 ??F (37.3 ??C) TempSrc: Temporal Artery SpO2: 92% Weight: 76.7 kg (169 lb) Height: 1.753 m (5' 9 ) Pain Assessment Pain Score: 0-No pain Physical Exam Vitals reviewed. Constitutional: General: He is not in acute distress. Appearance: Normal appearance. HENT: Head: Normocephalic and atraumatic. Mouth/Throat: Mouth: Mucous membranes are moist. Pharynx: Oropharynx is clear. Eyes: Extraocular Movements: Extraocular movements intact. Conjunctiva/sclera: Conjunctivae normal. Pulmonary: Effort: Pulmonary effort is normal. No respiratory distress. Breath sounds: No wheezing. Abdominal: General: Abdomen is flat. There is no distension. Musculoskeletal: General: No swelling or deformity. Normal range of motion. Cervical back: Normal range of motion and neck supple. Right lower leg: No edema. Left lower leg: No edema. Skin: General: Skin is warm. Coloration: Skin is not jaundiced. Findings: No rash. Neurological: General: No focal deficit present. Mental Status: He is alert and oriented to person, place, and time. Mental status is at baseline. Cranial Nerves: No cranial nerve deficit. Psychiatric: Mood and Affect: Mood normal. Behavior: Behavior normal. Assessment: Mr. Oviedo is a pleasant 74 y.o. year old male. He has a history of [id number], stage IIBmoderately differentiated squamous cell carcinoma of the left lower lobe status post definitive concurrent chemoradiation. He completed 1 cycle of adjuvant immunotherapy but opted to discontinue secondary to toxicity. He is currently on observation. Oncologically, he is doing well with no clinical or radiographic evidence of disease progression orrecurrence. His PET/CT demonstrates a robust metabolic response although there is a small area of residual hyperactivity which will need to be monitored. He is scheduled for repeat imaging in February. I plan to see him back at that time or sooner as needed. A total of 30 minutes was spent at today's visit reviewing patient records, in [id number] consultation with the patient, and in coordination and documentation of care. Plan of Care for Pain: Patient has no complaints of pain Electronically approved by Mayito Griffin MD on 11/19/2024 at 9:26 AM EDT. documented in this encounter Miscellaneous Notes * Addendum Note - De Romo - 11/19/2024 9:00 AM EDTEncounter addended by: De Romo on: 11/21/2024 10:08 AM Actions taken: Charge Capture section accepted documented in this encounter Plan of Treatment Upcoming Encounters Date Type Department Care Team (Late st Contact Info) Description 02/18/2025 11:30 AM EST Appointment [facility] CT Imaging [address] [place] [address] Dani Pham MD [address] [place] [address] 02/18/2025 1:30 PM EST Appointment [facility] [place] [address] [place] [phone] Mayito Griffin MD [address] [place] [phone] 02/18/2025 2:15 PM EST Office Visit [facility] [address] [place] [phone] Dani Pham MD [address] [place] [phone] 05/20/2025 10:45 AM EDT Office Visit [facility] Pulm & Critical Care Medicine [address] [place] [phone] [place] [address] [place] [address] [address] [place] [phone] documented as of this encounter Visit Diagnoses Diagnosis Malignant neoplasm of lower lobe, left bronchus or lung (HCC)- Primary documented in this encounter Care Teams Felt Carbonizer Relationship Specialty Start Date End Date Renan Rosas MD [address] [place] [address] [place] [address] PCP - General General Internal Medicine 04/29/24 Guy Cook MD [address] [place] [address] Surgeon Cardiothoracic Surgery 04/30/24 [place] [address] [place] [address] [address] [place] [address] Consulting Physician Pulmonary Disease 05/16/24 Dani Pham MD [address] [place] [address] Medical Oncologist Hematology and Oncology 05/16/24 documented as of this encounter
--- OUTSIDE RECORDS SUMMARY | 2024-11-19 10:30 | XMS_ITS | Encounter Summary ---
Author Organization [employer] ([place], [place], [place], [place]) Address [address] [place] [address] Care Team Providers Care Insurance Examiner Name Role Phone Renan Rosas MD Primary Care Provider [phone] Guy Cook MD Unavailable [phone] Claire Ferguson MD Unavailable Dani Pham MD Unavailable [phone] Reason for Visit * Reason Comments Follow-up 3 Month follow-up Encounter Details Date Type Department Care Team (Late st Contact Info) Description 11/19/2024 10:30 AM EDT Office Visit [facility] Pulm & Critical Care Medicine [address] [place] [address] [address] [phone] Sally Samuels MD [address] [place] [phone] Chronic obstructive pulmonary disease, unspecified COPD type (HCC) (Primary Dx); Dyspnea on exertion; Malignant neoplasm of lower lobe of left lung (HCC); Tobacco dependence due to cigarettes; Abnormal chest CT; Chronic cough Social History Tobacco Use Types Packs/Day Years [...] Sign Reading Time Taken Comments Blood Pressure 148/72 11/19/2024 10:33 AM EDT Pulse 77 11/19/2024 10:33 AM EDT Temperature 36.8 C (98.2 F) 11/19/2024 10:33 AM EDT Respiratory Rate - - Oxygen Saturation 91% 11/19/2024 10:33 AM EDT Inhaled Oxygen Concentration - - Weight 77.6 kg (171 lb) 11/19/2024 10:33 AM EDT Height 175.3 cm (5' 9 ) 11/19/2024 10:33 AM EDT Body Mass Index 25.25 11/19/2024 10:33 AM EDT documented in this encounter Progress Notes * Sally Samuels MD - 11/19/2024 10:30 AM EDT Filemon Oviedo is 74 y.o. year old male presents today for follow up for Chief Complaint Patient presents with Follow-up 3 Month follow-up Mr. Oviedo is active cigarette smoker for past 50 years, smoking 1 pack/day He has history of COPD History of squamous cell lung cancer. He has completed radiation and chemotherapy in July 2024. He was started on adjuvant immunotherapy in August 2024 Durvalumab, discontinued due to dizziness and headache. 08/15/2024 Routine follow-up He has some cough and congestion Reports that he has tolerated chemotherapy pretty well with some side effects including numbness ofthe toes and anemia. He was prescribed Anoro inhaler on last visit that he could not get due to high co-pay. He currently only has albuterol inhaler that he is using as needed. 11/19/2024 Routine follow-up Patient reports that overall he is doing fine but has noticed that he gets more short of breath on exertion. No fever, chills or hemoptysis No ED visits or hospitalization for any recent respiratory illness He recently had a PET scan done and was seen by oncology and radiation oncology since then. They have recommended to continue monitoring with a follow-up CT chest in 3 months interval now He is currently using Breyna inhaler He also complains of intermittent back pain Current Outpatient Medications Medication Instructions albuterol 90 mcg/actuation inhaler Every 6 hours PRN aspirin 81 mg, Daily budesonide-formoteroL (Symbicort) 160-4.5 mcg/actuation inhaler 2 puffs, inhalation, 2 times daily (RT), Rinse mouth with water after each use irxjkqmjkq-hghynvyo-lwrzmiqpjr (Breztri Aerosphere) 160-9-4.8 mcg/actuation HFAA Inhale by mouth. HYDROcodone-acetaminophen (NORCO) 5-325 mg per tablet 1 tablet, Every 6 hours PRN hyoscyamine (LEVSIN) 125 mcg, Daily metoprolol succinate (TOPROL-XL) 50 mg, Daily nitroglycerin (NITROSTAT) 0.4 mg, Every 5 min PRN simvastatin (ZOCOR) 10 mg, Every Night Allergies Allergen Reactions Penicillin Patients medications, allergies, social, medical and surgical history were obtained from medical records. Past Medical History: Diagnosis Date Back pain COPD (chronic obstructive pulmonary disease) ([facility]) Coronary artery disease Hyperlipidemia Hypertension Kidney stone Myocardial infarction ([facility]) Times 3 PVD (peripheral vascular disease) ([facility]) Skin cancer 06/15/2022 Squamous Cell Carcinoma/ Mole removal Left Quaker Past Surgical History: Procedure Laterality Date ABDOMINAL AORTIC ANEURYSM REPAIR 07/05/[address] Bal Toribio @ [facility] BRONCHOSCOPY,BIOPSY N/A 05/08/2024 Procedure: EBUS BRONCHOSCOPY, WITH BIOPSY; Surgeon: Sally Samuels MD; Location: [facility]; Service: Pulmonary/Critical Care; Laterality: N/A; BRONCHOSCOPY,BRUSHINGS 05/08/2024 Procedure: BRONCHOSCOPY, WITH BRUSH BIOPSY; Surgeon: Sally Samuels MD; Location: [facility]; Service: Pulmonary/Critical Care;; BRONCHOSCOPY,LAVAGE 05/08/2024 Procedure: BRONCHOSCOPY, WITH BRONCHOALVEOLAR LAVAGE; Surgeon: Sally Sameuls MD; Location: [facility];Service: Pulmonary/Critical Care;; BRONCHOSCOPY,TRANSBRONCHIAL NEEDLE ASPIRATION BIOPSY 05/08/2024 Procedure: BRONCHOSCOPY, WITH TRANSBRONCHIAL NEEDLE ASPIRATION BIOPSY; Surgeon: Sally Samuels MD; Location: [facility]; Service: Pulmonary/Critical Care;; CORONARY ARTERY BYPASS GRAFT Coronary Artery Stent Placement SKIN CANCER EXCISION Left 06/15/2022 Left Quaker/ Squamous Cell Carcinoma Social History Socioeconomic History Marital status: Spouse name: Not on file Number of children: Not on file Years of education: Not on file Highest education level: Not on file Occupational History Not on file Tobacco Use Smoking status: Every Day Current packs/day: 1.00 Average packs/day: 1 pack/day for 56.7 years (56.7 ttl pk-yrs) Types: Cigarettes Start date: 1969 Smokeless tobacco: Never Vaping Use Vaping status: Never Used Substance and Sexual Activity Alcohol use: Never Drug use: Never Sexual activity: Not on file Other Topics Concern Not on file Social History Narrative Not on file Social Drivers of Health Food Insecurity: Not on file Transportation: Not on file Family History Problem Relation Name Age of Onset Diabetes Mother Hypertension Mother Breast cancer Mother Heart disease Father COPD Sister Stroke Sister CVA, TIA Alzheimer's disease Brother No Known Problem Maternal Aunt No Known Problem Maternal Uncle No Known Problem Paternal Aunt No Known Problem Paternal Uncle No Known Problem Maternal Grandmother No Known Problem Maternal Grandfather No Known Problem Paternal Grandmother No Known Problem Paternal Grandfather Immunization History Administered Date(s) Administered COVID-19 VACCINE MRNA (MODERNA/BIVALENT)(DARK BLUE CAP W/[place])([id number] & [id number]) 11/24/2021 Covid-19 Vaccine MRNA (PF) 18yr+ (Moderna)([id number]) 04/22/2020, 05/20/2020, 12/16/2020 REVIEW OF SYSTEMS: Complete 12 point ROS non-contributory except complaints described in HPI or other sections of thisnote. PHYSICAL EXAM: VITAL SIGNS: BP (!) 148/72 (BP Location: Left arm, Patient Position: Sitting, Cuff Size: Adult) Pulse 77 Temp 98.2 ??F (36.8 ??C) (Temporal Artery) Ht 1.753 m (5' 9 ) Wt 77.6 kg (171 lb) SpO2 91% BMI 25.25 kg/m?? Physical Exam Constitutional: Appearance: Normal appearance. HENT: Head: Normocephalic and atraumatic. Nose: Nose normal. Eyes: Extraocular Movements: Extraocular movements intact. Cardiovascular: Rate and Rhythm: Normal rate and regular rhythm. Pulmonary: Effort: Pulmonary effort is normal. No respiratory distress. Breath sounds: No wheezing or rales. Abdominal: General: Bowel sounds are normal. Palpations: Abdomen is soft. Musculoskeletal: General: Normal range of motion. Cervical back: Normal range of motion. Skin: General: Skin is warm and dry. Neurological: Mental Status: He is alert and oriented to person, place, and time. Psychiatric: Mood and Affect: Mood normal. Behavior: Behavior normal. Imaging: No results found for this or any previous visit. Results for orders placed during the hospital encounter of 05/16/24 PET/CT Skull Base-Mid Thigh (Whole Body) Narrative PROCEDURE: PET/CT IMAGING, SKULL BASE TO MID THIGH INDICATION: Left lung cancer, initial staging. TECHNIQUE: 15.7 mCi of 18-FDG was injected intravenously with a fasting blood glucose of 90 mg/dl. PET/CT images were obtained from skull base to mid thigh. COMPARISON: No prior FINDINGS: There is no FDG avid cervical lymphadenopathy. There are carotid vascular calcifications, left greater than right. Posterior to left mainstem bronchus and along the left aspect of the aorta is a 4.5 x 3.4 cm soft tissue mass with maximum SUV of 12.9. A portion of this mass may represent consolidation. There is some adjacent postobstructive lung collapse. There is no hypermetabolic thoracic lymphadenopathy. The liver, spleen, renal collecting systems, and bladder demonstrate expected FDG uptake. There is a 12 mm right adrenal nodule with maximum SUV of 2.8. This is indeterminate. This is not amenable to biopsy. GI uptake is normal. There is no hypermetabolic abdominal or pelvic lymphadenopathy. No hypermetabolic bone lesions are identified. Impression Hypermetabolic left lung mass consistent with patient's known malignancy. Indeterminate right adrenal nodule. No other abnormal hypermetabolism is identified. Images reviewed, interpreted, and dictated by Dr. Chema Tena. Transcribed by Yobani Waldron PA-C. PFT's: No results found for this or any previous visit. ECHO: Echo Results (last 7 days) No results found for the last 168 hours. Assessment: Diagnoses and all orders for this visit: Chronic obstructive pulmonary disease, unspecified COPD type (HCC) Dyspnea on exertion Malignant neoplasm of lower lobe of left lung (HCC) Tobacco dependence due to cigarettes Abnormal chest CT Chronic cough Plan: Squamous cell carcinoma of the lung Status post chemoradiation did not tolerate immunotherapy. Being monitored now by oncology and radiation oncology. Surveillance CT scan planned in February 2025 COPD Signs of emphysema on CT chest Continue Breyna inhaler Albuterol as needed for acute symptoms of cough or dyspnea Recommend annual influenza, pneumococcal vaccines Avoid smoking Avoid ill contacts and allergens Regular physical activity Dyspnea on exertion Could be due to multiple comorbidities We will do 6-minute walk test today to for the possibility of ambulatory hypoxia Lowest O2 sat noted on ambulation was 90% and he improved to 99% after resting. Tobacco use Smoking cessation counseling was done. Patient was counseled on the harms of smoking, including increased risk of lung disease, worsening of respiratory symptoms, cardiovascular disease and cancer. Spent more than 3 minutes discussing risks of smoking and smoking cessation. The above assessment and plan was discussed in detail with patient. Patient verbalized understanding and agreement of plan. The medical records were reviewed including lab results, reports and imaging studies. Chest imaging were reviewed independent of the radiologist report. Medication side effects reviewed. Return in about 6 months (around 05/19/2025). or sooner if needed Dragon disclaimer: Part of this encounter note is an electronic sound engineer audio control/translation of spoken language to printed text. The electronic translation of spoken language may permit erroneous, or at times, nonsensicalwords or phrases to be inadvertently transcribed; Although I have reviewed the note for such errors, some may still exist. Electronically signed by Sally Samuels MD, 9:38 AM, 11/19/2024 documented in this encounter Plan of Treatment Upcoming Encounters Date Type Department Care Team (Late st Contact Info) Description 02/18/2025 11:30 AM EST Appointment [facility] [address] [place] [address] Dani Pham MD [address] [facility] [address] [place] [address] 02/18/2025 1:30 PM EST App[facility]ment [facility] [address] [place] [address] Mayito Griffin MD [address] [place] [address] 02/18/2025 2:15 PM EST Office [facility] [address] [place] [address] Dani Pham MD [address] [facility] [address] [place] [address] 05/20/2025 10:45 AM EDT Office Visit [facility] Pulm & Critical Care Medicine [address] [facility] [address] [place] [address] [place] [address] [place] [address] [address] [place] [address] documented as of this encounter Visit Diagnoses Diagnosis Chronic obstructive pulmonary disease, unspecified COPD type (HCC)- Primary Dyspnea on exertion Other dyspnea and respiratory abnormality Malignant neoplasm of lower lobe of left lung (HCC) Tobacco dependence due to cigarettes Abnormal chest CT Nonspecific (abnormal) findings on radiological and other examination of other intrathoracic organs Chronic cough Cough documented in this encounter Care Teams Insurance Examiner Relationship Specialty Start Date End Date Renan Rosas MD [address] [facility] [address] [place] [address] PCP - General General Internal Medicine 04/29/24 Guy Cook MD [address] [facility] [address] [place], [place] [id number] Surgeon Cardiothoracic Surgery 04/30/24 Claire Ferguson MD [address] [facility] [address] [place], [place] [id number] Consulting Physician Pulmonary Disease 05/16/24 Dani Pham MD [address] [facility] [address] [place] [address] Medical Oncologist Hematology and Oncology 05/16/24 documented as of this encounter
[2024-12-25] VITALS (15 sets, daily range): BP systolic 123–150; BP diastolic 59–99; PULSE 56–99; RESP 12–34; TEMP 36.4–37.1; O2SAT 92–100; BMI 23.6; BMI 23.5
--- NOTE | 2024-12-25 10:09 | ECG_ITS ---
APPROVED REPORT Exam: Resting ECG HR:87 bpm ECG Measurements Heart Rate 87 AXES LA 169 P 114 QRSd 119 QRS 92 QT 387 T 242 QTc 431 Conclusion SINUS RHYTHM ARM LEADS REVERSED [INVERTED P AND QRS IN I] NORMAL ECG No STEMI Electronically signed by : JANETH PHELPS, 12/26/2024 06:34:08
[2024-12-25 10:17] LABS: Coronavirus 19, PCR Not Detected (NotDetected); Influenza A, PCR Not Detected (NotDetected); Influenza B, PCR Not Detected (NotDetected)
--- NOTE | 2024-12-25 10:24 | CT_ITS ---
FINAL REPORT TECHNIQUE: Axial imaging of the chest is obtained after the administration of contrast. 3-D MIP reformatted images were also obtained and reviewed per PE protocol. This study was performed with techniques to keep radiation doses as low as reasonably achievable (ALARA). Individualized dose reduction techniques using automated exposure control or adjustment of mA and/or kV according to the patient's size were employed. CLINICAL HISTORY: SOA, cough, hx of NSLC on left COMPARISON: 04/23/2024 FINDINGS: The pulmonary arteries are well filled. There is no evidence of pulmonary embolus. There is no aortic dissection. There is a stable thoracic ascending aortic aneurysm. The heart size has somewhat increased in size. There are multiple mediastinal lymph nodes, some of which have increased in size. An example in the AP window measured 15 mm, was previously 6 mm. Right hilar adenopathy has increased as well. There is a moderate right pleural effusion, and there has been interval increase in left pleural effusion, which is now partially loculated. No pericardial effusion is seen. The previously seen left infrahilar mass has decreased in size, and now contains a cavitation. There is significantly improved aeration in the left lower lobe, which now measures 3.7 x 2.5 cm in size. There is new left greater than right bilateral airspace and ground glass opacities, worrisome for pneumonia. New nodular opacities are present in the peripheral right middle lobe, that may be infectious or inflammatory. Limited evaluation of the upper abdomen is without acute abnormality. There is an expansile lytic lesion in the left fifth rib, measuring 18 mm in size, worrisome for metastasis. IMPRESSION: No evidence of pulmonary embolism or aortic dissection. 2. There has been interval decrease in size in the left infrahilar mass since the prior exam, and the left lower lobe is now cavitary. 3. New bilateral pneumonia, as well as new nodular opacities in the peripheral right middle lobe, that may be infectious or inflammatory. 4. There is a new expansile left fifth rib lytic lesion, worrisome for metastasis. Reviewed, Interpreted and Dictated by Radha Coates MD Transcribed by Nicol Irizarry Authenticated and [facility]
--- NOTE | 2024-12-25 10:27 | ED_ITS ---
<Statement entered by Yaneth Mcgregor DO - 12/25/24 15:16> I was consulted by the JOSE ELIAS, and we discussed the complexity of problems being addressed. I approved the treatment plan and management plan of this patient's care in the emergency department, thus performing a substantive portion of medical decision making. Yaneth Mcgregor DO Discharge Plan Disposition Patient Disposition: Admitted Condition: Fair Clinical Impressions Clinical Impression: Pneumonia, Non-small cell lung cancer, Elevated troponin, Elevated brain natriuretic peptide (BNP) level Discharge ED Provider: Yaneth Mcgregor HPI <SHAJI Holman - Last Filed: 12/25/24 14:51> General Chief Complaint: Shortness of Breath/Dyspnea Stated Complaint: SOA, weakness, +pneumonia 11/27 Time Seen by Provider: 12/25/24 10:10 Mode of Arrival: Ambulatory Source of Information: Patient, Spouse and Medical Record Description of Symptoms (Recalled from ER Triage Doc. by RN): pt was sent by pcp for possible admission for iv antibiotics for pneumonia that has been worsening over a month now and not responding to antibiotics and steroids. pt has hx of lung cancer and copd and saw lung in november adn follow up again in february, pt states he has been soa with congestion for a month now, doesnt wear o2 at baseline History of Present Illness HPI narrative: 74-year-old male presents the emergency department at the request of his PCP, for ongoing shortness of air, productive cough, concern for pneumonia , for over the last month, that is progressively worsening, worse with exertion. Patient on 11 27, was prescribed p.o. antibiotics and p.o. steroids by his PCP, did have some initial improvement, but now has worsening dyspnea. Patient denies any fever or chills, denies any chest pain, denies abdominal pain, nausea, vomiting constipation, diarrhea no urinary symptomatology, patient is current everyday smoker, denies alcohol or drug use, of note patient follows with pulmonology at [facility] for ongoing NSCL, however some confusion, patient states that they have small cell , although upon chart review patient's malignancy is classified as NSCL, recent PET scan in October 2024, shows no residual disease, chemo and radiation was last performed in July 2024. Patient had chest x-ray performed today at his PCPs office worrisome for ongoing pneumonia/worsening neoplasm and thus was instructed to come to the emergency department. Other past medical history consistent with COPD, CAD status post 1 stent placement, CABG, hypertension, status post AAA repair, BPH, hyperlipidemia, GERD. Initial triage vitals are unremarkable, when patient is remaining stable in the bed, per nursing staff patient did have a drop in his oxygen saturation initially upon walking in the emergency department around upper 80s. Patient not on any supplemental O2 at home. Please note that above description of symptoms, in this electronic medical record under categorization of recalled from ER triage doctor by RN are reflective of an initial nursing assessment, however, is not reflective of my full history and physical exam that was personally taken and clarified. Consequentially, this preceding description of symptoms, which may include the patient's categorized chief complaint in the EMR, do not reflect my personal clinical impression, and the ultimate description of history of present illness and patient stated complaints should be deferred to this section of the note. Unless stated otherwise or congruent with this section of the note, additional signs, symptoms, or incongruence should be interpreted as inaccurate with my clinical impression. MD complaint: other Related Data Home Medications ?Medication ?Instructions ?Recorded ?Confirmed aspirin 81 mg tablet,delayed 81 mg PO DAILY 10/23/23 1 release (Adult Aspirin Regimen) metoprolol succinate 50 mg 50 mg PO DAILY 12/25/24 tablet,extended release 24 hr zolpidem 5 mg tablet 5 mg PO HSP PRN Insomnia 12/25/24 Allergies Allergy/AdvReac Type Severity Reaction Status Date / Time Penicillins Allergy Mild RASH Verified 12/25/24 08:26 [facility] <SHAJI Holman - Last Filed: 12/25/24 14:51> [facility] Disclaimer: The information contained in this section may have been updated after the patient was seen, as this information can be updated by other users. Medical History Kidney stone History of heart attack Hyperlipidemia Hypertension Surgical History History of open heart surgery History of cardiac catheterization Social History Smoking Status: Current every day smoker alcohol intake: never current occupational status: other Travel in the last 8 weeks?: None Have you lived/traveled outside [place] in past 30 days?: No Contact w/someone who lives/traveled outside US past 30 days?: No Exposure to someone with infectious disease in past 14 days?: No Do you have a fever (greater than 100.4 F or 38 C)?: No Have you tested positive for COVID-19?: No Exposed to someone with COVID-19 in past 14 days?: No Do you have a sore throat?: No Do you have a cough?: No Do you have any weakness?: No Do you have any diarrhea?: No Are you experiencing any unusual bleeding?: No Do you have any muscle aches/pain?: No Do you have any abdominal pain?: No Are you experiencing loss of taste or smell?: No Other Medical History Have you received the Pneumonia Vaccine: No <SHAJI Holman - Last Filed: 12/25/24 14:51> ROS Obtained: Yes All systems reviewed & no additional complaints except as documented Physical Exam <SHAJI Holman - Last Filed: 12/25/24 14:51> General General appearance: alert and in no apparent distress Head Head exam: atraumatic and normocephalic Eye Eye exam: Present PERRL and EOMI ENT ENT exam: Present mucous membranes moist Neck Neck exam: Present normal inspection Chest Chest inspection: Present normal inspection and symmetric chest wall rise Respiratory Respiratory exam: Present wheezes and other (Mild wheezes noted throughout bilateral lung wong, mild to moderate crackles/Rales heard in the left upper lung field, with some possible rhonchi in the left as well, patient is tachypneic but not in respiratory distress,); Absent normal lung sounds bilaterally or respiratory distress Cardiovascular Cardiovascular exam: Present regular rate and normal rhythm Abdominal Exam Abdominal exam: Present soft; Absent tenderness, guarding, rebound, rigidity or trauma Extremities Exam Extremities exam: Present normal inspection Neurological Exam Neurological exam: Present alert and oriented X3 Psychiatric Psychiatric exam: Present normal affect Skin Skin exam: Present warm and dry HEART Score <SHAJI Holman - Last Filed: 12/25/24 14:51> HEART Score HEART Score assessment performed?: Yes HEART Score: 5 Critical Care <SHAJI Holman Last Filed: 12/25/24 14:51> Critical Care Time Critical Care Time: No Medical Decision Making <SHAJI Holman Last Filed: 12/25/24 14:51> Medical Records Medical records reviewed: Yes I reviewed the patient's medical records. Sj Inquiry Pt receiving controlled substance: No Sj was queried for this patient: No Vital Signs Vital Signs: 12/25/24 10:00 12/25/24 10:09 12/25/24 10:27 Temperature 98.4 F Temperature Source Oral Pulse Rate 87 Pulse Rate [Left Radial] 87 Respiratory Rate 34 H 28 H Blood Pressure 140/89 Blood Pressure [Right Arm] 140/59 L Blood Pressure Mean 99 Blood Pressure Mean [Right Arm] 86 02 Sat by Pulse Oximetry 95 95 94 L Oxygen Delivery Method Room Air Room Air 12/25/24 10:30 12/25/24 11:00 12/25/24 11:30 Temperature Temperature Source Pulse Rate 80 89 87 Pulse Rate [Left Radial] Respiratory Rate 33 H 29 H 26 H Blood Pressure 146/94 H 141/99 H 147/96 H Blood Pressure [Right Arm] Blood Pressure Mean 111 108 110 Blood Pressure Mean [Right Arm] 02 Sat by Pulse Oximetry 95 100 94 L Oxygen Delivery Method 12/25/24 12:00 12/25/24 12:30 12/25/24 13:00 Temperature Temperature Source Pulse Rate 97 H 86 89 Pulse Rate [Left Radial] Respiratory Rate 28 H 22 29 H Blood Pressure 138/87 150/96 H 137/89 Blood Pressure [Right Arm] Blood Pressure Mean 106 108 Blood Pressure Mean [Right Arm] 02 Sat by Pulse Oximetry 94 L 95 93 L Oxygen Delivery Method Room Air 12/25/24 13:30 12/25/24 14:36 Temperature 98.2 F Temperature Source Pulse Rate 91 H 91 H Pulse Rate [Left Radial] Respiratory Rate 31 H 20 Blood Pressure 135/84 138/89 Blood Pressure [Right Arm] Blood Pressure Mean 98 Blood Pressure Mean [Right Arm] 02 Sat by Pulse Oximetry 94 L Oxygen Delivery Method Room Air Lab Data Lab results reviewed: Yes I reviewed the patient's lab results. Labs: Lab Results 12/25/24 10:15: SARS-CoV-2 (PCR) Not detected, Influenza A Untype (PCR) Not detected, Influenza Type B (PCR) Not detected 12/25/24 10:35: WBC 6.2, RBC 3.85 L, Hgb 11.6 L, Hct 34.3 L, MCV 89.1, MCH 30.1, MCHC 33.8, RDW 14.0, Plt Count 297, MPV 9.2, Neut % (Auto) 84.4 H, Lymph % (Auto) 3.7 L, [place] % (Auto) 8.7, Eos % (Auto) 2.7, Baso % (Auto) 0.3, Neut # (Auto) 5.2, Lymph # (Auto) 0.2 L, [place] # (Auto) 0.5, Eos # (Auto) 0.2, Baso # (Auto) 0.0, Total Counted 100, Neutrophils % (Manual) 90 H, Lymphocytes % (Manual) 3 L, Monocytes % (Manual) 5, Eosinophils % (Manual) 2, Platelet Estimate Normal, RBC Morphology Normal, PT 12.9 H, INR 1.18 H, VBG pH 7.39, VBG pCO2 40.6, VBG pO2 31.3, VBG HCO3 24.0, VBG Total CO2 25.3, VBG O2 Saturation 59.3, VBG Base Excess -0.9, VBG Lactic Acid 1.6, Sodium 137, Potassium 3.9, Chloride 100, Carbon Dioxide 28, Anion Gap 12.9, BUN 20, Creatinine 0.80, Estimated Creat Clear 66, Estimated GFR 94, Est GFR ( Amer) 114, Glucose 105 H, Calcium 9.0, Magnesium 1.8, Total Bilirubin 1.1, AST 26, ALT 14, Alkaline Phosphatase 74, Troponin I 0.05 H, NT-Pro-B Natriuret Pep 10937 H, Total Protein 6.6, Albumin 3.5, Globulin 3.1, Albumin/Globulin Ratio 1.1 12/25/24 13:22: Troponin I 0.06 H 12/25/24 10:35 12/25/24 10:35 Response Orders (Tests/Meds): ED MEDICATIONS Generic Name Dose Route Start Last Admin Trade Name Freq PRN Reason Stop Dose Admin Acetaminophen 650 mg 12/25/24 13:52 Acetaminophen 325mg Tab PO 01/24/25 13:51 Q4HP PRN Fever or Mild Pain (1-3) Enoxaparin Sodium 40 mg 12/26/24 09:00 Enoxaparin 40mg/0.4ml Syringe SUBCUT 01/25/25 08:59 DAILY MIKEL Vancomycin/PEG/NADA/Lysine/Water 1.5 gm in 300 mls @ 150 mls/hr 12/25/24 13:45 Vancomycin 1.5gm/300ml (Peg) Premix IV 12/25/24 15:44 ONCE ONE Ondansetron HCl 4 mg 12/25/24 13:52 Ondansetron 4mg/2ml Vial IV 01/24/25 13:51 Q8HP PRN Nausea Discontinued Medications Generic Name Dose Route Start Last Admin Trade Name Freq PRN Reason Stop Dose Admin Albuterol/Ipratropium 6 ml 12/25/24 10:34 12/25/24 10:45 Ipratropium/Albuterol 3 Ml Neb IH 12/25/24 10:35 6 ml ONCE ONE Administration Cefepime HCl 1 gm/ Sodium 50 mls @ 100 mls/hr 12/25/24 13:40 12/25/24 14:33 Chloride IV 12/25/24 13:41 Infused ONCE ONE Infusion Iopamidol 85 ml 12/25/24 11:35 12/25/24 11:37 Iopamidol-370 (76%);100ml Bottle IV 12/25/24 11:36 85 ml ONCE ONE Administration Methylprednisolone Sodium Succinate 125 mg 12/25/24 10:34 12/25/24 10:45 Methylprednisolone Sod Succ 125mg Vial IV 12/25/24 10:35 125 mg ONCE ONE Administration Miscellaneous 1 each 12/25/24 13:45 Vancomycin Consult Request NOTAPPLIC 01/24/25 13:44 CONSULT PH[facility]ACY [facility] Sodium Chloride 10 ml 12/25/24 11:35 12/25/24 11:37 Sodium Chloride 0.9% 10ml Syr (Rad Only) IV 12/25/24 11:36 10 ml ONCE ONE Administration Sodium Chloride 50 ml 12/25/24 11:35 12/25/24 11:37 0.9 % Sodium Chloride 50 Ml Vial IV 12/25/24 11:36 50 ml ONCE ONE Administration ORDERS Category Date Time Status CT angio chest PE protocol Stat Cat Scan 12/25/24 10:24 Completed Pulmonology Consult [Consult to Pulmonology] [CONS] Cons 12/25/24 13:52 Active Routine POCUS Point of Care (ER Only) Stat Exams 12/25/24 12:18 Completed Complete Blood Count Auto Diff AMLAB Lab 12/26/24 06:00 Ordered Complete Blood Count Auto Diff AMLAB Lab 12/27/24 06:00 Ordered Complete Blood Count Auto Diff AMLAB Lab 12/28/24 06:00 Ordered Complete Blood Count Auto Diff Stat Lab 12/25/24 10:35 Completed Comprehensive Metabolic Panel AMLAB Lab 12/26/24 06:00 Ordered Comprehensive Metabolic Panel AMLAB Lab 12/27/24 06:00 Ordered Comprehensive Metabolic Panel AMLAB Lab 12/28/24 06:00 Ordered Comprehensive Metabolic Panel Stat Lab 12/25/24 10:35 Completed Magnesium AMLAB Lab 12/26/24 06:00 Ordered Magnesium AMLAB Lab 12/27/24 06:00 Ordered Magnesium AMLAB Lab 12/28/24 06:00 Ordered Magnesium Stat Lab 12/25/24 10:35 Completed NT Pro Brain Natriuretic Pep. Stat Lab 12/25/24 10:35 Completed PT INR [Prothrombin Time INR] Stat Lab 12/25/24 10:35 Completed Procalcitonin Routine Lab 12/25/24 10:30 Received Rapid PCR Covid and Flu A/B Stat Lab 12/25/24 10:15 Completed Troponin I Q3H Lab 12/25/24 13:22 Completed Troponin I Q3H Lab 12/25/24 16:30 Ordered Troponin I Stat Lab 12/25/24 10:35 Completed VBG [Venous Blood Gas] Stat RT 12/25/24 10:35 Completed MDM Narrative Medical Decision Narrative: 74-year-old male presents emergency department accompanied by his spouse at the request of primary care doctor for 1 month history of productive cough and dyspnea worse with exertion, differential diagnosis include but not limited to pneumonia, malignancy, pleural effusion, PE, cardiac arrhythmia, acute bronchitis, other viral URI, electrolyte disturbance, COPD exacerbation, mucous plug, pulmonary edema among others. I discussed this patient's case with the attending physician Dr. Mcgregor Obtain basic laboratory studies, EKG, CTA chest, magnesium level proBNP PT/INR, PCR COVID and flu, VBG, troponin, will give 125 mg IV Solu-Medrol and 6 mm DuoNeb. COVID-19 and influenza are negative via PCR. VBG unremarkable I reviewed the patient's chest x-ray that was obtained as outpatient today, along the corresponding radiologic report, worsening right upper lobe opacity and left perihilar opacity could represent pneumonia although neoplasm not excluded. CBC is notable for hemoglobin hematocrit 11.6/34.3 respectively COVID-19 and influenza are negative via PCR Coags are notable for 12.9 seconds, INR is 1.18 CMP unremarkable Troponin is elevated at 0.05, proBNP is significant elevated at 10,900, will obtain and repeat EKG to assess for any dynamic changes. I attempted to call on-call miner operator at 12 PM, he is in a Dolly Operator case right now and will call me back. Attempted walk test around the emergency department, patient nearly walked 20 feet, when his oxygen dropped to 76% , according to nursing staff/ER solar panel technician. Ultrasound was performed in order to further evaluate for any potential underlying cardiac etiology considering elevated troponin and elevated BNP: Limited Cardiac Ultrasound Indication: Shortness of breath Identified cardiac views: -Cardiac parasternal long axis -Cardiac parasternal short axis -Cardiac apical four-chamber -Cardiac subxiphoid Findings: -Cardiac activity present -Gross wall motion normal -Pericardial effusion absent -Right heart strain absent Impression: - Slightly diminished left ventricular ejection fraction Images were saved/were not saved to permanent archive The study was/was not technically adequate Performed by Yaneth Mcgregor DO CPT: 29994 This study was performed by me, and I personally interpreted all images/videos. Based on my clinical judgement, these images were adequate/inadequate and did/did not necessitate further imaging. I discussed this patient's case with the on-call miner operator Dr. Mcdaniels at 1:30 PM, he reviewed the patient's EKGs, he does not see any new ischemic changes, could be demand ischemia in the setting of the patient's most likely undiagnosed heart failure, or ongoing lung malignancy. I reviewed the patient's CTA chest without contrast PE protocol, no evidence of pulmonary embolism or dissection, there is been interval decrease in the size of left infrahilar mass since prior exam, and the left lower lobe is now cavitary, new bilateral pneumonia as well as new nodular opacities in the peripheral right middle lobe that may be infectious/inflammatory, there is a new expansile left fifth rib lytic lesion worrisome for metastasis. Pharmacy to dose vancomycin and 1 g IV cefepime for pneumonia coverage. I discussed this patient's case with the hospitalist Sebastián Batista APRN who accepts the patient for admission for pneumonia, elevated troponin and possibly new onset heart failure. I discussed need for admission with the patient and family the bedside patient and family in agreement with current admission plan/treatment plan. Repeat troponin is increased to 0.06. <Yaneth Mcgregor, DO - Last Filed: 12/25/24 12:33> Vital Signs Vital Signs: 12/25/24 10:00 12/25/24 10:09 12/25/24 10:27 Temperature 98.4 F Temperature Source Oral Pulse Rate 87 Pulse Rate [Left Radial] 87 Respiratory Rate 34 H 28 H Blood Pressure 140/89 Blood Pressure [Right Arm] 140/59 L Blood Pressure Mean 99 Blood Pressure Mean [Right Arm] 86 02 Sat by Pulse Oximetry 95 95 94 L Oxygen Delivery Method Room Air Room Air 12/25/24 10:30 12/25/24 11:00 12/25/24 11:30 Temperature Temperature Source Pulse Rate 80 89 87 Pulse Rate [Left Radial] Respiratory Rate 33 H 29 H 26 H Blood Pressure 146/94 H 141/99 H 147/96 H Blood Pressure [Right Arm] Blood Pressure Mean 111 108 110 Blood Pressure Mean [Right Arm] 02 Sat by Pulse Oximetry 95 100 94 L Oxygen Delivery Method 12/25/24 12:00 12/25/24 12:30 12/25/24 13:00 Temperature Temperature Source Pulse Rate 97 H 86 89 Pulse Rate [Left Radial] Respiratory Rate 28 H 22 29 H Blood Pressure 138/87 150/96 H 137/89 Blood Pressure [Right Arm] Blood Pressure Mean 106 108 Blood Pressure Mean [Right Arm] 02 Sat by Pulse Oximetry 94 L 95 93 L Oxygen Delivery Method Room Air 12/25/24 13:30 12/25/24 14:36 Temperature 98.2 F Temperature Source Pulse Rate 91 H 91 H Pulse Rate [Left Radial] Respiratory Rate 31 H 20 Blood Pressure 135/84 138/89 Blood Pressure [Right Arm] Blood Pressure Mean 98 Blood Pressure Mean [Right Arm] 02 Sat by Pulse Oximetry 94 L Oxygen Delivery Method Room Air Lab Data Labs: Lab Results 12/25/24 10:15: SARS-CoV-2 (PCR) Not detected, Influenza A Untype (PCR) Not detected, Influenza Type B (PCR) Not detected 12/25/24 10:35: WBC 6.2, RBC 3.85 L, Hgb 11.6 L, Hct 34.3 L, MCV 89.1, MCH 30.1, MCHC 33.8, RDW 14.0, Plt Count 297, MPV 9.2, Neut % (Auto) 84.4 H, Lymph % (Auto) 3.7 L, [place] % (Auto) 8.7, Eos % (Auto) 2.7, Baso % (Auto) 0.3, Neut # (Auto) 5.2, Lymph # (Auto) 0.2 L, [place] # (Auto) 0.5, Eos # (Auto) 0.2, Baso # (Auto) 0.0, Total Counted 100, Neutrophils % (Manual) 90 H, Lymphocytes % (Manual) 3 L, Monocytes % (Manual) 5, Eosinophils % (Manual) 2, Platelet Estimate Normal, RBC Morphology Normal, PT 12.9 H, INR 1.18 H, VBG pH 7.39, VBG pCO2 40.6, VBG pO2 31.3, VBG HCO3 24.0, VBG Total CO2 25.3, VBG O2 Saturation 59.3, VBG Base Excess -0.9, VBG Lactic Acid 1.6, Sodium 137, Potassium 3.9, Chloride 100, Carbon Dioxide 28, Anion Gap 12.9, BUN 20, Creatinine 0.80, Estimated Creat Clear 66, Estimated GFR 94, Est GFR ( Amer) 114, Glucose 105 H, Calcium 9.0, Magnesium 1.8, Total Bilirubin 1.1, AST 26, ALT 14, Alkaline Phosphatase 74, Troponin I 0.05 H, NT-Pro-B Natriuret Pep 75887 H, Total Protein 6.6, Albumin 3.5, Globulin 3.1, Albumin/Globulin Ratio 1.1 12/25/24 13:22: Troponin I 0.06 H Response Orders (Tests/Meds): ED MEDICATIONS Generic Name Dose Route Start Last Admin Trade Name Freq PRN Reason Stop Dose Admin Acetaminophen 650 mg 12/25/24 13:52 Acetaminophen 325mg Tab PO 01/24/25 13:51 Q4HP PRN Fever or Mild Pain (1-3) Enoxaparin Sodium 40 mg 12/26/24 09:00 Enoxaparin 40mg/0.4ml Syringe SUBCUT 01/25/25 08:59 DAILY MIKEL Vancomycin/PEG/NADA/Lysine/Water 1.5 gm in 300 mls @ 150 mls/hr 12/25/24 13:45 Vancomycin 1.5gm/300ml (Peg) Premix IV 12/25/24 15:44 ONCE ONE Ondansetron HCl 4 mg 12/25/24 13:52 Ondansetron 4mg/2ml Vial IV 01/24/25 13:51 Q8HP PRN Nausea Discontinued Medications Generic Name Dose Route Start Last Admin Trade Name Freq PRN Reason Stop Dose Admin Albuterol/Ipratropium 6 ml 12/25/24 10:34 12/25/24 10:45 Ipratropium/Albuterol 3 Ml Neb IH 12/25/24 10:35 6 ml ONCE ONE Administration Cefepime HCl 1 gm/ Sodium 50 mls @ 100 mls/hr 12/25/24 13:40 12/25/24 14:33 Chloride IV 12/25/24 13:41 Infused ONCE ONE Infusion Iopamidol 85 ml 12/25/24 11:35 12/25/24 11:37 Iopamidol-370 (76%);100ml Bottle IV 12/25/24 11:36 85 ml ONCE ONE Administration Methylprednisolone Sodium Succinate 125 mg 12/25/24 10:34 12/25/24 10:45 Methylprednisolone Sod Succ 125mg Vial IV 12/25/24 10:35 125 mg ONCE ONE Administration Miscellaneous 1 each 12/25/24 13:45 Vancomycin Consult Request NOTAPPLIC 01/24/25 13:44 CONSULT PH[facility]ACY [facility] Sodium Chloride 10 ml 12/25/24 11:35 12/25/24 11:37 Sodium Chloride 0.9% 10ml Syr (Rad Only) IV 12/25/24 11:36 10 ml ONCE ONE Administration Sodium Chloride 50 ml 12/25/24 11:35 12/25/24 11:37 0.9 % Sodium Chloride 50 Ml Vial IV 12/25/24 11:36 50 ml ONCE ONE Administration ORDERS Category Date Time Status CT angio chest PE protocol Stat Cat Scan 12/25/24 10:24 Completed Pulmonology Consult [Consult to Pulmonology] [CONS] Cons 12/25/24 13:52 Active Routine POCUS Point of Care (ER Only) Stat Exams 12/25/24 12:18 Completed Complete Blood Count Auto Diff AMLAB Lab 12/26/24 06:00 Ordered Complete Blood Count Auto Diff AMLAB Lab 12/27/24 06:00 Ordered Complete Blood Count Auto Diff AMLAB Lab 12/28/24 06:00 Ordered Complete Blood Count Auto Diff Stat Lab 12/25/24 10:35 Completed Comprehensive Metabolic Panel AMLAB Lab 12/26/24 06:00 Ordered Comprehensive Metabolic Panel AMLAB Lab 12/27/24 06:00 Ordered Comprehensive Metabolic Panel AMLAB Lab 12/28/24 06:00 Ordered Comprehensive Metabolic Panel Stat Lab 12/25/24 10:35 Completed Magnesium AMLAB Lab 12/26/24 06:00 Ordered Magnesium AMLAB Lab 12/27/24 06:00 Ordered Magnesium AMLAB Lab 12/28/24 06:00 Ordered Magnesium Stat Lab 12/25/24 10:35 Completed NT Pro Brain Natriuretic Pep. Stat Lab 12/25/24 10:35 Completed PT INR [Prothrombin Time INR] Stat Lab 12/25/24 10:35 Completed Procalcitonin Routine Lab 12/25/24 10:30 Received Rapid PCR Covid and Flu A/B Stat Lab 12/25/24 10:15 Completed Troponin I Q3H Lab 12/25/24 13:22 Completed Troponin I Q3H Lab 12/25/24 16:30 Ordered Troponin I Stat Lab 12/25/24 10:35 Completed VBG [Venous Blood Gas] Stat RT 12/25/24 10:35 Completed ECG Data Tracing #1: Attestation: I reviewed this ECG and interpreted as documented below: ECG Narrative: EKG shows normal sinus rhythm at a rate of 87. Normal MT, QRS, and QTc intervals. There are T wave inversions inferolaterally, however these are demonstrated on previous EKG. No acute ST elevations or signs of acute subendocardial or transmural ischemia. Interpreted by Yaneth Mcgregor DO Tracing #2: Attestation: I reviewed this ECG and interpreted as documented below: ECG Narrative: EKG shows normal sinus rhythm at a rate of 93. Normal MT, QRS, and QTc intervals. There are stable T wave inversions inferolaterally no acute ST elevations or signs of acute subendocardial or transmural ischemia. Of note, algorithm is reading acute anteroseptal [place] due to deep Q waves in V1 through V4, however morphology seems more consistent with deep S waves in my opinion. Yaneth Mcgregor DO MDM Narrative Medical Decision Narrative: 74-year-old male presents emergency department accompanied by his spouse at the request of primary care doctor for 1 month history of productive cough and dyspnea worse with exertion, differential diagnosis include but not limited to pneumonia, malignancy, pleural effusion, PE, cardiac arrhythmia, acute bronchitis, other viral URI, electrolyte disturbance, COPD exacerbation, mucous plug, pulmonary edema among others. I discussed this patient's case with the attending physician Dr. Mcgregor Obtain basic laboratory studies, EKG, CTA chest, magnesium level proBNP PT/INR, PCR COVID and flu, VBG, troponin, will give 125 mg IV Solu-Medrol and 6 mm DuoNeb. COVID-19 and influenza are negative via PCR. VBG unremarkable I reviewed the patient's chest x-ray that was obtained as outpatient today, along the corresponding radiologic report, worsening right upper lobe opacity and left perihilar opacity could represent pneumonia although neoplasm not excluded. CBC is notable for hemoglobin hematocrit 11.6/34.3 respectively COVID-19 and influenza are negative via PCR Coags are notable for 12.9 seconds, INR is 1.18 CMP unremarkable Troponin is elevated at 0.05, proBNP is significant elevated at 10,900, will obtain and repeat EKG to assess for any dynamic changes. I attempted to call on-call miner operator at 12 PM, he is in a Dolly Operator case right now and will call me back. Attempted walk test around the emergency department, patient nearly walked 20 feet, when his oxygen dropped to 76% , according to nursing staff/ER solar panel technician. Ultrasound was performed in order to further evaluate for any potential underlying cardiac etiology considering elevated troponin and elevated BNP: Limited Cardiac Ultrasound Indication: Shortness of breath Identified cardiac views: -Cardiac parasternal long axis -Cardiac parasternal short axis -Cardiac apical four-chamber -Cardiac subxiphoid Findings: -Cardiac activity present -Gross wall motion normal -Pericardial effusion absent -Right heart strain absent Impression: - Slightly diminished left ventricular ejection fraction Images were saved/were not saved to permanent archive The study was/was not technically adequate Performed by Yaneth Mcgregor DO CPT: 56447 This study was performed by me, and I personally interpreted all images/videos. Based on my clinical judgement, these images were adequate/inadequate and did/did not necessitate further imaging.
--- OUTSIDE RECORDS SUMMARY | 2024-12-25 10:31 | XMS_ITS | Referral Summary ---
Author Organization [employer] ([place], [place], [place], [place]) Address [address] [place] [address] Care Team Providers Care Keg Raiser Name Role Phone Renan Rosas MD Primary Care Provider [phone] Guy Cook MD Unavailable [phone] Claire Ferguson MD Unavailable Dani Pham MD Unavailable [phone] Encounters Date Type Department Care Team Description 11/19/2024 Travel 11/19/2024 10:30 AM EDT Office Visit [facility] Pulm & Critical Care Medicine [address] [place] [address] [address] Sally Samuels MD Chronic obstructive pulmonary disease, unspecified COPD type (HCC) (Primary Dx); Dyspnea on exertion; Malignant neoplasm of lower lobe of left lung (HCC); Tobacco dependence due to cigarettes; Abnormal chest CT; Chronic cough 11/19/2024 8:55 AM EDT - 11/19/2024 11:59 PM EDT Hospital Encounter [facility] [place] [address] [place] [address] Mayito Griffin MD Malignant neoplasm of lower lobe, left bronchus or lung (HCC) (Primary Dx) Discharge Disposition: Home or Self Care 10/21/2024 Travel 10/21/2024 9:40 AM EDT - 10/21/2024 11:59 PM EDT Hospital Encounter [facility] PET CT - [address] [place] [address] Dani Pham MD Malignant neoplasm of lower lobe, left bronchus or lung (HCC) Discharge Disposition: Home or Self Care 10/21/2024 4:00 PM EDT Office Visit [facility] - [place] [address] [place] [address] Dani Pham MD Malignant neoplasm of lower lobe, left bronchus or lung (HCC) from Last 3 Months Allergies Active Allergy Reactions Criticality Noted Date Comments Penicillin 04/29/2024 Medications albuterol 90 mcg/actuation inhaler Inhale by mouth every 6 (six) hours as needed for wheezing. Active aspirin 81 MG EC tablet Take 1 tablet (81 mg total) by mouth daily. Active hyoscyamine (LEVSIN) 0.125 mg/5 mL elix elixir Take 5 mLs (125 mcg total) by mouth daily. Active metoprolol succinate (TOPROL-XL) 50 MG 24 hr tablet Take 1 tablet (50 mg total) by mouth daily. Active nitroglycerin (NITROSTAT) 0.[address] 1 tablet (0.4 mg total) under the tongue every 5 (five) minutes as needed for chest pain Put 1 pill under tongue every 5min as needed for chest pain.No more than 3 doses in 15min.Call 911 if pain unrelieved 5min after 1st dose. Active simvastatin (ZOCOR) 10 MG tablet Take 1 tablet (10 mg total) by mouth nightly. Active HYDROcodone-amalia taminophen (NORCO) 5-325 mg per tablet Take 1 tablet by mouth every 6 (six) hours as needed for pain. Active budesonide-form oteroL (Symbicort) 160-4.5 mcg/actuation inhaler Inhale 2 puffs by mouth 2 (two) times daily Rinse mouth with water after each use. 7.2 g 6 5 08/16/19 26 Active budesonide-glyc opyr-formoterol (Breztri Aerosphere) 160-9-4.8 mcg/actuation HFAA Inhale by mouth. Active Active Problems Problem Noted Date Diagnosed Date Malignant neoplasm of lower lobe, left bronchus or lung 05/27/2024 Cancer Staging:Clinical stage from 05/16/2024:Stage IIB(cT3, cN0, cM0) - Unsigned Lung mass 05/02/2024 Mass of lower lobe of left lung 04/29/2024 Pneumonia 04/29/2024 COPD (chronic obstructive pulmonary disease) Coronary artery disease Hyperlipidemia Hypertension PVD (peripheral vascular disease) Social History Tobacco Use Types Packs/Day Years [...] on file Sexual Orientation Not on file Last Filed Vital Signs Vital Sign Reading Time Taken Comments Blood Pressure 148/72 11/19/2024 10:33 AM EDT Pulse 77 11/19/2024 10:33 AM EDT Temperature 36.8 C (98.2 F) 11/19/2024 10:33 AM EDT Respiratory Rate 18 11/19/2024 9:06 AM EDT Oxygen Saturation 91% 11/19/2024 10:33 AM EDT Inhaled Oxygen Concentration - - Weight 77.6 kg (171 lb) 11/19/2024 10:33 AM EDT Height 175.3 cm (5' 9 ) 11/19/2024 10:33 AM EDT Body Mass Index 25.25 11/19/2024 10:33 AM EDT Plan of Treatment Upcoming Encounters Date Type Department Care Team (Late st Contact Info) Description 02/18/2025 11:30 AM EST Appointment [facility] CT Imaging [address] [place] [address] Dani Pham MD [address] [place] [address] 02/18/2025 1:30 PM EST Appointment [facility] - [place] [address] [place] [address] Mayito Griffin MD [address] [place] [address] 02/18/2025 2:15 PM EST Office Visit [facility] [address] [facility] [address] [place] [phone] Dani Pham MD [address] [place] [address] 05/20/2025 10:45 AM EDT Office Visit [facility] Pulm & Critical Care Medicine [address] [facility] [address] [place] [address] [place] [address] [place] [address] Procedures Procedure Name Priority Date/Time Associated Diagnosis Comments P.E.T./CT SKULL BASE TO MID-THIGH STAT 10/21/2024 12:38 PM EDT Malignant neoplasm of lower lobe, left bronchus or lung (HCC) from Last 3 Months Results * PET/CT Skull Base-Mid Thigh (Whole Body) (10/21/2024 12:38 PM EDT) Anatomical Region Laterality Modality Positron Emissio n Tomography (PET) 10/21/2024 1:46 PM EDT Impressions 10/21/2024 2:03 PM EDT 1. Improved disease burden in the left lower lobe with decreased size and hypermetabolic activity of the mass and partial reexpansion of the left lower lobe. 2. Hypermetabolic left upper lobe airspace disease is favored to be infectious or inflammatory. Malignancy is felt less likely but 3 month follow-up CT is recommended. Images reviewed, interpreted, and dictated by Dr. Radha Coates. Transcribed by Yobani Waldron PA-C. Narrative 10/21/2024 2:03 PM EDT PROCEDURE: PET/CT IMAGING, SKULL BASE TO MID [...] lymphadenopathy. No hypermetabolic bone lesions are identified. Procedure Note Radha Coates MD - 10/21/2024 PROCEDURE: PET/CT IMAGING, SKULL BASE TO MID [...] lymphadenopathy. No hypermetabolic bone lesions are identified. IMPRESSION: 1. Improved disease burden in the left lower lobe with decreased size and hypermetabolic activity of the mass and partial reexpansion of the left lower lobe. 2. Hypermetabolic left upper lobe airspace disease is favored to be infectious or inflammatory. Malignancy is felt less likely but 3 month follow-up CT is recommended. Images reviewed, interpreted, and dictated by Dr. Radha Coates. Transcribed by Yobani Waldron PA-C. Dani Pham MD IMG CT ORDERABLES Final Result from Last 3 Months Insurance [employer] [id number] MEDICARE PART A B Care Teams Keg Raiser Relationship Specialty Start Date End Date Renan Rosas MD [address] [place] [address] [place] [address] PCP - General General Internal Medicine 04/29/24 Guy Cook MD [address] [facility] [address] [place] [address] Surgeon Cardiothoracic Surgery 04/30/24 Claire Ferguson MD [address] [facility] [address] [place] [id number] Consulting Physician Pulmonary Disease 05/16/24 Dani Pham MD [address] [facility] [address] [place] [address] Medical Oncologist Hematology and Oncology 05/16/24
--- OUTSIDE RECORDS SUMMARY | 2024-12-25 10:31 | XMS_ITS ---
Author Organization [employer] ([place], [place], [place], [place]) Address [address] [place] [address] Care Team Providers Care Production Supv Name Role Phone Renan Rosas MD Primary Care Provider [phone] Guy Cook MD Unavailable [phone] Claire Ferguson MD Unavailable Dani Pham MD Unavailable [phone] Active Problems Problem Noted Date Diagnosed Date Malignant neoplasm of lower lobe, left bronchus or lung 05/27/2024 Cancer Staging:Clinical stage from 05/16/2024:Stage IIB(cT3, cN0, cM0) - Unsigned Lung mass 05/02/2024 Mass of lower lobe of left lung 04/29/2024 Pneumonia 04/29/2024 COPD (chronic obstructive pulmonary disease) Coronary artery disease Hyperlipidemia Hypertension PVD (peripheral vascular disease) Current Treatment and Therapy Plans [facility] LINE CARE - USE WITH INFUSIONS* Plan Start Date:06/10/2024 Linked Problems Malignant neoplasm of lower lobe, left bronchus or lung (HCC) Treatment Medications alteplase (CATHFLO) 2 mg in SW 2 mL syringe [facility] Lung NSCLC, SCLC - durvalumab (Imfinzi) 1500 mg IV every 28 days (patients greater than or equal to 30 kg)* Plan Start Date:08/12/2024 Plan Provider:Dani Pham MD Linked Problems Malignant neoplasm of lower lobe, left bronchus or lung (HCC) Treatment Medications Current Day (Day 1 , Cycle 2 - Planned for 09/09/2024) Next Day (Day 1, Cycle 3 - Planned for 10/07/2024) durvalumab (IMFINZI) chemo infusiongranisetron (KYTRIL)sodium chloride 0.9 % (NS) durvalumab (IMFINZI) 50 mg/mL 1,500 mg in sodium chloride 0.9 % (NS) chemo infusiongranisetron (KYTRIL) injection 1 mgsodium chloride 0.9 % infusion durvalumab (IMFINZI) 50 mg/mL 1,500 mg in sodium chloride 0.9 % (NS) chemo infusiongranisetron (KYTRIL) injection 1 mgsodium chloride 0.9 % infusion Past Treatment and Therapy Plans ONCOLOGY TREATMENT Plan Name Start Date Discontinue Date Treatment Medications Discontinue Reason Plan Provider Cycles [facility] Lung NSCLC - PACLItaxel + CARBOplatin (+ XRT) days 1,8,15,22,29, and 36 5 07/16/2024 CARBOplatin (PARAPLATIN) chemo infusion (by AUC) Injdexamethasone (DECADRON) IVPBgranisetron (KYTRIL)PACLitaxel (TAXOL) chemo infusionsodium chloride 0.9 % (NS) Therapy Complete Dani Pham MD 1 of 1 cycle started
--- OUTSIDE RECORDS SUMMARY | 2024-12-25 10:31 | XMS_ITS | Clinical Summary ---
Author Organization [employer] ([place], [place], [place], [place]) Address [address] [place] [address] Care Team Providers Care Ranch Helper Name Role Phone Renan Rosas MD Primary Care Provider [phone] Guy Coko MD Unavailable [phone] Claire Ferguson MD Unavailable Dani Pham MD Unavailable [phone] Allergies Active Allergy Reactions Criticality Noted Date [...] disease Hyperlipidemia Hypertension PVD (peripheral vascular disease) Encounters Date Type Department Care Team Description 11/19/2024 10:30 AM EDT Office Visit [facility] Pulm & Critical Care Medicine [address] [place] [address] [address] Sally Samuels MD Chronic obstructive pulmonary disease, unspecified COPD type (HCC) (Primary Dx); Dyspnea on exertion; Malignant neoplasm of lower lobe of left lung (HCC); Tobacco dependence due to cigarettes; Abnormal chest CT; Chronic cough 11/19/2024 8:55 AM EDT - 11/19/2024 11:59 PM EDT Hospital Encounter [facility] - [place] [address] [place] [address] Mayito Griffin MD Malignant neoplasm of lower lobe, left bronchus or lung (HCC) (Primary Dx) Discharge Disposition: Home or Self Care 11/19/2024 Travel 10/21/2024 4:00 PM EDT Office Visit [facility] - [place] [address] [place] [address] Dani Pham MD Malignant neoplasm of lower lobe, left bronchus or lung (HCC) 10/21/2024 9:40 AM EDT - 10/21/2024 11:59 PM EDT Hospital Encounter [facility] PET CT - [address] [place] [address] Dani Pham MD Malignant neoplasm of lower lobe, left bronchus or lung (HCC) Discharge Disposition: Home or Self Care 10/21/2024 Travel from Last 3 Months Family History Medical History Relation Name Comments Alzheimer's disease Brother Heart disease Father No Known Problem Maternal Aunt No Known Problem Maternal Grandfather No Known Problem Maternal Grandmother No Known Problem Maternal Uncle Breast cancer Mother Diabetes Mother Hypertension Mother No Known Problem Paternal Aunt No Known Problem Paternal Grandfather No Known Problem Paternal Grandmother No Known Problem Paternal Uncle COPD Sister Stroke Sister CVA, TIA Relation Name Status Comments Brother Father Maternal Aunt Maternal Grandfather Maternal Grandmother Maternal Uncle Mother Paternal Aunt Paternal Grandfather Paternal Grandmother Paternal Uncle Sister Social History Tobacco Use Types Packs/Day Years [...] Info) Description 02/18/2025 11:30 AM EST Appointment [facility] [address] [place] [address] Dani Pham MD [address] [facility] [address] [place] [address] 02/18/2025 1:30 PM EST Appointment [facility] [place] [address] [place] [address] Mayito Griffin MD [address] [place] [address] 02/18/2025 2:15 PM EST Office Visit [facility] [place] [address] [place] [phone] Dani Pham MD [address] [place] [address] 05/20/2025 10:45 AM EDT Office Visit [facility] Pulm & Critical Care Medicine [address] [facility] [address] [address] Sally Samuels MD [address] [place] [address] [address] Health Maintenance Due Date Last Done Comments CT Colonography 1949 Colonoscopy 1950 Colorectal Cancer Screening 1950 FOBT/FIT 1949 Fit-DNA (Cologuard) 1950 Sigmoidoscopy 1949 Hepatitis C Screening 1967 DTAP/TDAP/TD VACCINES (1 - Tdap) 01/26/1968 Pneumococcal 50+ years (1 of 2 - PCV) 01/26/1968 Shingles Vaccine (Zoster) (1 of 2) 1999 Medicare Initial AWV G0438 10/12/2006 Abdominal Aortic Aneurysm (A AA) Screen 2014 Respiratory Syncytial Virus (RSV) Adult or (1 - 1-dose 75+ series) 01/26/2024 Falls Risk Screening 03/13/2024 COVID-19 VACCINE (5 - 2024-2 6 season) 2024 11/24/2021, 12/16/2020, 05/20/2020, Additional history exists Influenza Vaccine (#1) 2024 Tobacco Cessation Counseling and Screening (12+) 05/02/2025 05/02/2024 Depression Screening (12+) 05/30/2025 05/30/2024 Procedures Procedure Name Priority Date/Time Associated Diagnosis [...] Images reviewed, interpreted, and dictated by Dr. Rdaha Coates. Transcribed by Yobani Waldron PA-C. Narrative [...] Final Result from Last [place] [id number] MEDICARE PART A B Care Teams Ranch Helper Relationship Specialty Start Date End Date Renan Rosas MD [address] [place] [address] [place] [address] PCP - General General Internal Medicine 04/29/24 Guy Cook MD [address] [facility] [address] [place] [id number] Surgeon Cardiothoracic Surgery 04/30/24 Claire Ferguson MD [address] [facility] [address] [place], [place] [phone] Consulting Physician Pulmonary Disease 05/16/24 Dani Pham MD [address] [facility] [address] [place] [address] Medical Oncologist Hematology and Oncology 05/16/24
--- OUTSIDE RECORDS SUMMARY | 2024-12-25 10:31 | XMS_ITS | Encounter Summary ---
Author Organization [employer] ([place], [place], [place], [place]) Address [address] [place] [address] Care Team Providers Care Power Crane Operator Name Role Phone Renan Rosas MD Primary Care Provider [phone] Guy Cook MD Unavailable [phone] Claire Ferguson MD Unavailable Dani Pham MD Unavailable [phone] Encounter Details Date Type Department Care Team (Latest Contact Info) Description 11/19/2024 Travel Social History Tobacco Use Types Packs/Day Years [...] on file documented as of this encounter Plan of Treatment Upcoming Encounters Date Type Department Care Team (Late st Contact Info) Description 02/18/2025 11:30 AM EST Appointment [facility] CT Imaging [address] [place] [address] Dani Pham MD [address] [facility] [address] [place] [address] 02/18/2025 1:30 PM EST Appointment [facility] [place] [address] [place] [phone] Mayito Griffin MD [address] [place] [phone] 02/18/2025 2:15 PM EST Office Visit [facility] [place] [address] [place] [phone] Dani Pham MD [address] [facility] [address] [place] [address] 05/20/2025 10:45 AM EDT Office Visit [facility] Pulm & Critical Care Medicine [address] [place] [address] [address] [place] [phone] Sally Samuels MD [address] [place] [address] [address] [place] [phone] documented as of this encounter Visit Diagnoses Not on filedocumented in this encounter Care Teams Power Crane Operator Relationship Specialty Start Date End Date Renan Rosas MD [address] [place] [address] [place] [address] PCP - General General Internal Medicine 04/29/24 Guy Cook MD [address] [facility] [address] [place], [place] [phone] Surgeon Cardiothoracic Surgery 04/30/24 [place] [address] [place] [address] [address] [place], [place] [phone] Consulting Physician Pulmonary Disease 05/16/24 Dain Pham MD [address] [facility] [address] [place] [address] Medical Oncologist Hematology and Oncology 05/16/24 documented as of this encounter
[2024-12-25] MEDS: METHYLPREDNISOLONE SOD SUCC 125MG VIAL 125 MG IV (10:45)
[2024-12-25] MEDS: IPRATROPIUM/ALBUTEROL 3 ML NEB 6 ML IH (10:45)
[2024-12-25 10:46] LABS: Lactate Venous 1.6 mmol/L (0.4-2.0); VBG HCO3 24.0 mmol/L (23-30); VBG PCO2 40.6 mmol/L (35-51); VBG PH 7.39 mmol/L (7.31-7.41); VBG PO2 31.3 mmol/L (28-40)
[2024-12-25 10:49] LABS: Hematocrit 34.3 % (42.0-52.0); Hemoglobin 11.6 g/dL (14.1-18.0); Immature Granulocytes % 0.2 %; Mean Corpuscular HGB Conc 33.8 g/dL (31.8-35.4); Mean Corpuscular Hemoglobin 30.1 pg (27.0-31.2); Mean Corpuscular Volume 89.1 fl (80-94); Nucleated Red Blood Cells % 0 %; Platelet Count 297 K/mm3 (142-424); Red Blood Count 3.85 M/mm3 (4.60-6.20); Red Cell Distribution Width-SD 45.4 fL; White Blood Count 6.2 K/mm3 (4.8-10.8)
[2024-12-25 10:56] LABS: INR 1.18 (0.9-1.1); Prothrombin Time 12.9 seconds (10.1-12.5)
[2024-12-25 11:21] LABS: Albumin Level 3.5 g/dl (3.5-5.0); Chloride 100 mmol/L (98-107); Sodium 137 mmol/L (136-145)
[2024-12-25 11:22] LABS: Potassium 3.9 mmoL/L (3.5-5.1)
[2024-12-25 11:24] LABS: Alanine Aminotransferase 14 U/L (12-78); Albumin/Globulin Ratio 1.1 (1.1-1.8); Alkaline Phosphatase 74 U/L (38-126); Anion Gap 12.9 mEq/L (5-15); Aspartate Amino Transferase 26 U/L (17-59); Bilirubin,Total 1.1 mg/dl (0.2-1.3); Blood Urea Nitrogen 20 mg/dl (9-20); Carbon Dioxide 28 mmol/L (22.0-30.0); Creatinine Clearance Estimated 66 mL/min (50-200); Creatinine,Serum 0.80 mg/dl (0.66-1.25); Estimated Glomerular Filt Rate 94 ml/min (>60); GFR (African American) 114 ML/MIN (>60); Globulin 3.1 g/dL (1.3-3.2); Total Protein,Serum 6.6 g/dl (6.3-8.2)
[2024-12-25 11:25] LABS: Calcium 9.0 mg/dl (8.4-10.2); Glucose 105 mg/dl (74-100); Magnesium 1.8 mg/dl (1.6-2.3)
[2024-12-25 11:34] LABS: NT Pro Brain Natriuretic Pep. 10900 pg/mL (0-450)
[2024-12-25 11:37] LABS: Troponin I 0.05 ng/ml (0.00-0.034)
[2024-12-25] MEDS: 0.9 % SODIUM CHLORIDE 50 ML VIAL IV (11:37)
[2024-12-25] MEDS: IOPAMIDOL-370 (76%);100ML BOTTLE 85 ML IV (11:37)
[2024-12-25] MEDS: SODIUM CHLORIDE 0.9% 10ML SYR (RAD ONLY) 10 ML IV (11:37)
--- NOTE | 2024-12-25 11:54 | ECG_ITS ---
APPROVED REPORT Exam: Resting ECG HR:93 bpm ECG Measurements Heart Rate 93 AXES IL 174 P 61 QRSd 117 QRS 88 QT 382 T -55 QTc 432 Conclusion SINUS RHYTHM ANTEROSEPTAL MYOCARDIAL INFARCTION , PROBABLY RECENT [40+ ms Q WAVE IN V1-V4] No STEMI Electronically signed by : RAMON SILVESTRE, 12/27/2024 16:12:56
[2024-12-25 12:04] LABS: Total Cells Counted 100
[2024-12-25 12:05] LABS: RBC Morphology Normal
--- NOTE | 2024-12-25 12:11 | PC.NURSE ---
Ambulated pt around nurses station. SP02 read 76, after 1 lap
[2024-12-25 13:51] LABS: Troponin I 0.06 ng/ml (0.00-0.034)
--- NOTE | 2024-12-25 13:53 | PC.NURSE ---
supervisor sawmill contacted for bed.
[2024-12-25] MEDS: CEFEPIME HCL 1 GM in 0.9 % SODIUM CHLORIDE 50 ML IV (13:55)
--- NOTE | 2024-12-25 14:05 | HMH.PHAINT1 ---
Pharmacy Intervention Comments: MEDICATION RECONCILIATION COMPLETED ON PATIENT USING EXTERNAL FILL HISTORY FROM PHARMACY AND [facility] REPORT. -[facility], [place]
[2024-12-25 14:34] LABS: Procalcitonin 0.061 ng/mL (0.0-2.0)
--- NOTE | 2024-12-25 15:50 | EXP.HP ---
History of Present Illness *Admission Date: 12/25/24 *Reason for visit:: Dyspnea with exertion *History of present illness: Mr. Oviedo is a 74-year-old male who was diagnosed with non-small cell lung cancer earlier this year. Underwent chemo and radiation. Last course of chemo and radiation in October. He was evaluated by his PCP today for follow-up due to recent pneumonia. Having worsening shortness of breath. Was sent to the ER for evaluation for pneumonia due to recent completion of antibiotics and persistent dyspnea. On workup in the ER, patient was found to be dyspneic but was not hypoxic. White count normal. Chest imaging however concerning for decrease in size of his known lung cancer lesions on CTA of the chest. No pneumothorax, PE, pleural effusion, but does have bilateral airspace disease and what looks to be a new lytic lesion in her rib. Also concern for CHF on chest CT. BNP elevated at greater than 10,000. Medicine was consulted for admission and treatment of pneumonia, CHF exacerbation. He denies nausea or vomiting. Denies any fever. States that he has had some intermittent swelling of his legs over the past few weeks. Significant dyspnea with exertion. Denies significant shortness of breath at rest. Denies chest pain, confusion. Previously saw Dr. Horton in [place] for cardiology but has not seen him in several years since he retired. Last PET scan showed improvement in his lesions and next follow-up with oncology is in February. cardiac Hx GA at 34 in 1984, Cabg x 5 in 1993, 1 stent in 2003, AAA 2007. Hx of HFrEF in the 30s per his recollection [facility] Disclaimer: The information contained in this section may have been updated after the patient was seen, as this information can be updated by other users. Medical History Kidney stone History of heart attack Hyperlipidemia Hypertension Surgical History History of open heart surgery History of cardiac catheterization Social History Smoking Status: Current every day smoker alcohol intake: never current occupational status: other Travel in the last 8 weeks?: None Have you lived/traveled outside [place] in past 30 days?: No Contact w/someone who lives/traveled outside US past 30 days?: No Exposure to someone with infectious disease in past 14 days?: No Do you have a fever (greater than 100.4 F or 38 C)?: No Have you tested positive for COVID-19?: No Exposed to someone with COVID-19 in past 14 days?: No Do you have a sore throat?: No Do you have a cough?: No Do you have any weakness?: No Do you have any diarrhea?: No Are you experiencing any unusual bleeding?: No Do you have any muscle aches/pain?: No Do you have any abdominal pain?: No Are you experiencing loss of taste or smell?: No Other Medical History Have you received the Flu Vaccine for this season: No Have you received the Pneumonia Vaccine: No Review of Systems Review of Systems Review of systems (narrative): 14 point review of systems performed, pertinent positives and negatives as per HPI Meds Home Medications and Allergies Home Medications ?Medication ?Instructions ?Recorded ?Confirmed ?Type aspirin 81 mg tablet,delayed 81 mg PO DAILY 10/23/23 12/25/24 History release (Adult Aspirin Regimen) metoprolol succinate 50 mg 50 mg PO DAILY 12/25/24 12/25/24 History tablet,extended release 24 hr zolpidem 5 mg tablet 5 mg PO HSP PRN Insomnia 12/25/24 12/25/24 History New Prescriptions to Start Prescriptions: Allergies Allergy/AdvReac Type Severity Reaction Status Date / Time Penicillins Allergy Mild RASH Verified 12/25/24 08:26 Exam Data for Last 24 hours Vital signs and Labs for Last 24 Hours: Temp Pulse Resp BP Pulse Ox O2 Del Method 97.5 F L 99 H 18 123/82 93 L Room Air 12/25/24 15:07 12/25/24 15:07 12/25/24 15:07 12/25/24 15:07 12/25/24 15:07 12/25/24 15:07 Laboratory Results - last 24 hr 12/25/24 10:15: SARS-CoV-2 (PCR) Not detected, Influenza A Untype (PCR) Not detected, Influenza Type B (PCR) Not detected 12/25/24 10:30: Procalcitonin 0.061 12/25/24 10:35: WBC 6.2, RBC 3.85 L, Hgb 11.6 L, Hct 34.3 L, MCV 89.1, MCH 30.1, MCHC 33.8, RDW 14.0, Plt Count 297, MPV 9.2, Neut % (Auto) 84.4 H, Lymph % (Auto) 3.7 L, Mayes % (Auto) 8.7, Eos % (Auto) 2.7, Baso % (Auto) 0.3, Neut # (Auto) 5.2, Lymph # (Auto) 0.2 L, Mayes # (Auto) 0.5, Eos # (Auto) 0.2, Baso # (Auto) 0.0, Total Counted 100, Neutrophils % (Manual) 90 H, Lymphocytes % (Manual) 3 L, Monocytes % (Manual) 5, Eosinophils % (Manual) 2, Platelet Estimate Normal, RBC Morphology Normal, PT 12.9 H, INR 1.18 H, VBG pH 7.39, VBG pCO2 40.6, VBG pO2 31.3, VBG HCO3 24.0, VBG Total CO2 25.3, VBG O2 Saturation 59.3, VBG Base Excess -0.9, VBG Lactic Acid 1.6, Sodium 137, Potassium 3.9, Chloride 100, Carbon Dioxide 28, Anion Gap 12.9, BUN 20, Creatinine 0.80, Estimated Creat Clear 66, Estimated GFR 94, Est GFR ( Amer) 114, Glucose 105 H, Calcium 9.0, Magnesium 1.8, Total Bilirubin 1.1, AST 26, ALT 14, Alkaline Phosphatase 74, Troponin I 0.05 H, NT-Pro-B Natriuret Pep 88054 H, Total Protein 6.6, Albumin 3.5, Globulin 3.1, Albumin/Globulin Ratio 1.1 12/25/24 13:22: Troponin I 0.06 H I & O for Last 24 hours: Intake & Output 12/22/24 12/23/24 12/24/24 12/25/24 23:59 23:59 23:59 23:59 Intake Total 50 / 50 Balance 50 / 50 Weight 71.923 kg Constitutional Constitutional: mild distress, thin, chronically ill appearing and cooperative *Routine HEENT Exam Head: Present normocephalic Eye: Present EOMI and PERRL ENT: Present mucous membranes moist *Routine Neck Exam Neck: Present supple; Absent lymphadenopathy *Routine Respiratory Exam Respiratory: Present crackles (Right lateral lung field); Absent prolonged expiratory phase, rhonchi or wheezes *Routine Cardiovascular Exam Cardiovascular: Present RRR *Routine Abdominal Exam Abdominal: Present soft and normoactive bowel sounds; Absent tenderness *Routine Rectal Exam Rectal:: deferred *Routine Genitalia Exam Genitalia:: deferred *Routine Extremities Exam Extremities: Absent cyanosis, clubbing or edema *Routine Skin Exam Skin: Present warm; Absent rash *Routine Neurological Exam Neurological: Present alert, oriented X3 and moving all extremities; Absent altered mental status Assessment and Plan *Assessment and plan (1) Acute on chronic HFrEF (heart failure with reduced ejection fraction): Status: Acute Category: Medical Code(s): I50.23 - Acute on chronic systolic (congestive) heart failure (2) Bilateral pneumonia: Status: Acute Qualifiers: Pneumonia type: due to unspecified organism Lung location: lower lobe of lung Qualified Code(s): J18.9 - Pneumonia, unspecified organism Category: Medical Code(s): J18.9 - Pneumonia, unspecified organism (3) COPD (chronic obstructive pulmonary disease): Status: Chronic Category: Medical Code(s): J44.9 - Chronic obstructive pulmonary disease, unspecified (4) Non-small cell lung cancer: Status: Chronic Category: Medical Code(s): C34.90 - Malignant neoplasm of unspecified part of unspecified bronchus or lung (5) Status post AAA (abdominal aortic aneurysm) repair: Status: Chronic Category: Surgical Code(s): Z98.890 - Other specified postprocedural states; Z86.79 - Personal history of other diseases of the circulatory system (6) Tobacco use disorder, continuous: Status: Chronic Category: Medical Code(s): F17.209 - Nicotine dependence, unspecified, with unspecified nicotine-induced disorders (7) BPH with obstruction/lower urinary tract symptoms: Status: Chronic Category: Medical Code(s): N40.1 - Benign prostatic hyperplasia with lower urinary tract symptoms; N13.8 - Other obstructive and reflux uropathy (8) Status post aorto-coronary artery bypass graft: Status: Chronic Category: Surgical Code(s): Z95.1 - Presence of aortocoronary bypass graft Plan Mr. Oviedo is a 74-year-old male with history of lung cancer in the past year. History of heart failure. Previous CABG and CAD. Presented with worsening dyspnea. Was referred by his PCP due to failure of outpatient therapy after completing antibiotics and still having shortness of breath. Workup in the ER concerning for CHF exacerbation and persistent pneumonia. Discussed case with ER physician, request admission for treatment of pneumonia and CHF. I agreed to admit for further care. Stable on room air however quite short of breath on exertion. PSI/port score of 115, class IV risk. Admitted to hospital for IV antibiotics, pulmonology and cardiology eval's. Problems addressed as follows: Pneumonia Non-small cell lung cancer COPD - Likely bacterial, failure of outpatient therapy. Initiate cefepime 2 g every 8 hours. Continue vancomycin for at least 48 hours. Sputum cultures pending. - Pulmonology consulted to assist with care and treatment given persistent nature of pneumonia and underlying lung cancer history - Last treatments in October for lung cancer. CT of the chest per my review showing what is concerning for a new lytic lesion of rib. -Respiratory panel negative for flu and COVID - Sputum culture pending - DuoNebs every 6 hours scheduled, supplemental oxygen as needed for goal sats greater 90%. Currently on room air. - white count normal at 6.2, neutrophil predominant. Repeat CBC, CMP, magnesium ordered for the morning. Remainder of labs normal with kidney function normal at BUN 20, creatinine 0.8. Glucose 105, sodium 137. -Monitor on continuous telemetry Acute on chronic HFrEF Type II NSTEMI - Previous EF in the 30s per patient report. On metoprolol and occasionally lisinopril. - Echo obtained on admission. Preliminary read concerning for EF less than 20%. BNP elevated greater than 10,000. Will administer Lasix 40 mg IV once. Monitor for improvement with diuresis. - Resume metoprolol succinate 25 mg daily - Consider Entresto in the morning and Jardiance - Cardiology consulted to evaluate. Troponin 0.06. Suspect NSTEMI secondary to stress of CHF exacerbation and pneumonia - Evaluation for possible heart cath in the morning - Continue aspirin 81 mg daily Full code Cardiac diet Lovenox 40 mg subcu daily
--- NOTE | 2024-12-25 15:51 | CA_ITS ---
APPROVED REPORT EXAM: Limited 2D, Doppler, and color-flow Echocardiogram with contrast Licensed Pharmacist: Emily Jacobs RT(R) Ht: 5 ft 8 in Wt: 158lbs BSA: 1.85 BP: 123/82 mmHg Indications: Elevated troponin, shortness of breath, lung cancer, pneumonia Echo Enhancing Agent Indication: Endocardial border delineation Agent(s) / Amount(s) Used: Definity 2 cc 2D Dimensions EF AP4 38.10 % GL Strain -16.3 % M-Mode Dimensions RVDd 2.93 cm (0.9-2.6) LA Diam 3.49 cm (1.9-4.0) LVDd 6.33 cm (3.5-5.7) LVDs 5.78 cm (3.5-5.7) IVSd 1.15 cm (0.6-1.1) PWd 0.76 cm (0.6-1.1) EF (Teich) 18.80% FS 8.70% EDV (Teich) 203.40 mL ESV (Teich) 165.20 mL LV Diastology E Decel Time 150 (160-240 msec) E/A Ratio 1.3 Mitral Valve MV E Max Kike. 88.0 (40-130 cm/s) MV A Velocity 69.0 (40-130 cm/s) E/A Ratio 1.26 MV PHT 44.0 ms Tricuspid Valve TR P. Velocity 359.00 cm/s Left Ventricle The left ventricle is normal size. Left ventricular systolic function is severely reduced. There is increased left ventricular wall thickness. There is severe global hypokinesis. There is akinesis of the inferior, inferolateral, inferoseptal, and septal LV sexton. Grade 2 diastolic dysfunction is present. No left ventricle thrombus noted on this study. LVEF is 10% Right Ventricle The right ventricle is normal size. The right ventricular systolic function is moderately reduced. Atria The left atrium is mildly dilated. The right atrium is mildly dilated. There is no color Doppler evidence of interatrial shunt. Aortic Valve The aortic valve is mildly thickened. There is no hemodynamically significant aortic valvular stenosis. Mild to moderate aortic regurgitation is present. Mitral Valve The mitral valve is mildly thickened. No evidence of mitral valve stenosis. Moderate mitral regurgitation is present. Tricuspid Valve The tricuspid valve leaflets are thin and pliable. Moderate tricuspid regurgitation. RVSP is 45 mmHg + RA pressure. Pulmonic Valve The pulmonary valve is grossly normal in structure. Mild pulmonic valve regurgitation is present. Great Vessels The aortic root is normal in size. The ascending aorta is mildly dilated, measuring 4.0 cm in diameter. The IVC is not well visualized. Pericardium There is no pericardial effusion. Other Information Study Quality: Fair Conclusion Severe reduction in LV systolic function (LVEF 10%). Grade 2 diastolic dysfunction. Akinesis of the inferior, inferolateral, inferoseptal, and septal LV sexton. Normal RV size with moderate reduction in RV systolic function. Biatrial dilation. Moderate MR, moderate TR. Mild to moderate AI. Elevated RVSP 45 mmHg + RA pressure The ascending aorta is mildly dilated, measuring 4.0 cm in diameter. Electronically signed by : Melly Keyes MD 12/25/2024 23:35:23
[2024-12-25] MEDS: VANCOMYCIN/WATER FOR INJ (PEG) 1.5 GM/300 ML PIGGYBACK IV (16:10)
[2024-12-25] MEDS: FUROSEMIDE 40MG/4ML VIAL 40 MG IV (16:10)
[2024-12-25] MEDS: DEFINITY US ECHO CONTRAST 2ML INJ 2 MG IV (16:42)
--- NOTE | 2024-12-25 17:22 | PC.NURSE ---
new admission this shift. tolerating RA with sats >90%. ambulatory independently in the room. diuretics given per may. abx also given per may. no complaints of pain. call light within reach
[2024-12-25 19:20] LABS: Troponin I 0.07 ng/ml (0.00-0.034)
[2024-12-25] MEDS: NICOTINE 21MG/24HR PATCH 21 MG TD (20:39)
[2024-12-25] MEDS: CEFEPIME HCL 2 GM in 0.9 % SODIUM CHLORIDE 100 ML IV (20:40)
[2024-12-25] MEDS: IPRATROPIUM/ALBUTEROL 3 ML NEB IH (23:36)
[2024-12-25] MEDS: SODIUM CHLORIDE 3% 15ML NEB 3 ML IH (23:36)
[2024-12-26] VITALS (25 sets, daily range): BP systolic 98–156; BP diastolic 57–102; PULSE 73–91; RESP 12–22; TEMP 36.5–37.1; O2SAT 91–100; BMI 22.8
--- NOTE | 2024-12-26 05:36 | PC.NURSE ---
PT is resting in the bed. HOB is at 25 degrees. Pt has a 18 Gauge Iv in his Right arm, S/L. Gave ABX per MAY. A&Ox4. Sputum was collected, awaiting the results. Pt's Stayed the night in the room with him. Pt asked for a Nicotine Patch. Placed it on PT about 2100 last night. PT is On Lovenox for VTE. PT is on Room Air. Call light is with in reach. ABHAY GARCÍA RN
[2024-12-26 05:58] LABS: Hematocrit 32.7 % (42.0-52.0); Hemoglobin 10.7 g/dL (14.1-18.0); Immature Granulocytes % 0.3 %; Mean Corpuscular HGB Conc 32.7 g/dL (31.8-35.4); Mean Corpuscular Hemoglobin 29.2 pg (27.0-31.2); Mean Corpuscular Volume 89.1 fl (80-94); Nucleated Red Blood Cells % 0 %; Platelet Count 301 K/mm3 (142-424); Red Blood Count 3.67 M/mm3 (4.60-6.20); Red Cell Distribution Width-SD 45.0 fL; White Blood Count 6.1 K/mm3 (4.8-10.8)
[2024-12-26] MEDS: CEFEPIME HCL 2 GM in 0.9 % SODIUM CHLORIDE 100 ML IV ×3 (05:59→21:51)
[2024-12-26 06:03] LABS: Albumin Level 3.3 g/dl (3.5-5.0); Chloride 99 mmol/L (98-107); Potassium 3.6 mmoL/L (3.5-5.1); Sodium 137 mmol/L (136-145)
[2024-12-26 06:05] LABS: Blood Urea Nitrogen 20 mg/dl (9-20); Creatinine Clearance Estimated 63 mL/min (50-200); Creatinine,Serum 0.80 mg/dl (0.66-1.25); Estimated Glomerular Filt Rate 94 ml/min (>60); GFR (African American) 114 ML/MIN (>60)
[2024-12-26 06:06] LABS: Alanine Aminotransferase 14 U/L (12-78); Albumin/Globulin Ratio 1.2 (1.1-1.8); Alkaline Phosphatase 68 U/L (38-126); Anion Gap 10.6 mEq/L (5-15); Aspartate Amino Transferase 23 U/L (17-59); Bilirubin,Total 0.5 mg/dl (0.2-1.3); Calcium 8.9 mg/dl (8.4-10.2); Carbon Dioxide 31 mmol/L (22.0-30.0); Globulin 2.7 g/dL (1.3-3.2); Glucose 112 mg/dl (74-100); Magnesium 1.8 mg/dl (1.6-2.3); Total Protein,Serum 6.0 g/dl (6.3-8.2)
[2024-12-26] MEDS: IPRATROPIUM/ALBUTEROL 3 ML NEB IH ×4 (06:28→22:58)
[2024-12-26] MEDS: ASPIRIN EC 81MG TABLET 81 MG PO (08:38)
[2024-12-26] MEDS: FUROSEMIDE 40MG/4ML VIAL 40 MG IV (08:49)
[2024-12-26] MEDS: METOPROLOL SUCCINATE XL 50MG TABLET 25 MG PO (08:49)
[2024-12-26 09:21] LABS: Total Cells Counted 100
[2024-12-26 09:23] LABS: RBC Morphology Normal
--- NOTE | 2024-12-26 09:44 | P.CONS_ITS ---
History of Present Illness History of present illness: Mr. Taylor is a 74-year-old male with a diagnosis of non-small cell lung cancer underwent chemoradiation presented today with worsening respiratory distress and pulmonary was called for further evaluation and management. Patient also receiving antibiotics for concern pneumonia by primary care physician as an outpatient basis. [facility] Disclaimer: The information contained in this section may have been updated after the patient was seen, as this information can be updated by other users. Medical History (Updated 12/26/24 @ 11:54 by Cathy Celaya MD) Multiple lung nodules on CT Hilar lymphadenopathy Mediastinal lymphadenopathy Large pleural effusion Ischemic cardiomyopathy LV dysfunction Non-STEMI (non-ST elevated myocardial infarction) Elevated troponin Bilateral pneumonia Acute on chronic HFrEF (heart failure with reduced ejection fraction) Coronary artery disease Kidney stone History of heart attack Hyperlipidemia Hypertension Surgical History (Updated 12/26/24 @ 11:12 by Rach Chua APRN) S/P CABG x 5 History of open heart surgery History of cardiac catheterization Social History Smoking Status: Current every day smoker alcohol intake: never current occupational status: other Travel in the last 8 weeks?: None Have you lived/traveled outside [place] in past 30 days?: No Contact w/someone who lives/traveled outside [place] past 30 days?: No Exposure to someone with infectious disease in past 14 days?: No Do you have a fever (greater than 100.4 F or 38 C)?: No Have you tested positive for COVID-19?: No Exposed to someone with COVID-19 in past 14 days?: No Do you have a sore throat?: No Do you have a cough?: No Do you have any weakness?: No Do you have any diarrhea?: No Are you experiencing any unusual bleeding?: No Do you have any muscle aches/pain?: No Do you have any abdominal pain?: No Are you experiencing loss of taste or smell?: No Review of Systems Constitutional Constitutional: Reports anorexia, Reports body ache(s) and Reports fatigue Eyes Eyes: Denies eye discharge, Denies dry eyes, Denies irritation and Denies itchy eyes ENT Ears, Nose, Mouth, and Throat: Denies epistaxis, Denies facial pain, Denies lip swelling and Denies throat swelling *Cardiovascular Cardiovascular: Reports dyspnea and Reports dyspnea on exertion *Respiratory Respiratory: Denies change in phlegm color, Reports chest congestion, Reports cough, Reports dyspnea, Reports dyspnea on exertion, Reports excessive phlegm production, Denies hemoptysis, Denies pain on inspiration, Denies pain with cough and Reports wheezing *Gastrointestinal Gastrointestinal: Denies abdominal pain, Denies belching and Denies cramping *Musculoskeletal Musculoskeletal: Reports back pain, Reports myalgias and Reports other (No small joint swelling or Pain) Psychiatric Psychiatric: Denies homicidal ideation and Denies suicidal ideation Endocrine Endocrine: Reports fatigue and Denies heat intolerance Hematologic/Lymphatic Hematologic/Lymphatic: Denies easy bleeding and Denies lymphadenopathy Allergic/Immunologic Allergic/Immunologic: Denies itchy eyes, Denies lip swelling, Denies throat swelling and Reports wheezing Pulmonology Exam Inpatient Vital signs and Labs for Last 24 Hours: Temp Pulse Resp BP Pulse Ox O2 Del Method 97.9 F 88 18 114/71 96 Room Air 12/26/24 08:00 12/26/24 08:00 12/26/24 08:00 12/26/24 08:00 12/26/24 08:00 12/26/24 09:00 Laboratory Results - last 24 hr 12/25/24 10:15: SARS-CoV-2 (PCR) Not detected, Influenza A Untype (PCR) Not detected, Influenza Type B (PCR) Not detected 12/25/24 10:30: Procalcitonin 0.061 12/25/24 10:35: WBC 6.2, RBC 3.85 L, Hgb 11.6 L, Hct 34.3 L, MCV 89.1, MCH 30.1, MCHC 33.8, RDW 14.0, Plt Count 297, MPV 9.2, Neut % (Auto) 84.4 H, Lymph % (Auto) 3.7 L, [place] % (Auto) 8.7, Eos % (Auto) 2.7, Baso % (Auto) 0.3, Neut # (Auto) 5.2, Lymph # (Auto) 0.2 L, [place] # (Auto) 0.5, Eos # (Auto) 0.2, Baso # (Auto) 0.0, Total Counted 100, Neutrophils % (Manual) 90 H, Lymphocytes % (Manual) 3 L, Monocytes % (Manual) 5, Eosinophils % (Manual) 2, Platelet Estimate Normal, RBC Morphology Normal, PT 12.9 H, INR 1.18 H, VBG pH 7.39, VBG pCO2 40.6, VBG pO2 31.3, VBG HCO3 24.0, VBG Total CO2 25.3, VBG O2 Saturation 59.3, VBG Base Excess -0.9, VBG Lactic Acid 1.6, Sodium 137, Potassium 3.9, Chloride 100, Carbon Dioxide 28, Anion Gap 12.9, BUN 20, Creatinine 0.80, Estimated Creat Clear 66, Estimated GFR 94, Est GFR ( Amer) 114, Glucose 105 H, Calcium 9.0, Magnesium 1.8, Total Bilirubin 1.1, AST 26, ALT 14, Alkaline Phosphatase 74, Troponin I 0.05 H, NT-Pro-B Natriuret Pep 43451 H, Total Protein 6.6, Albumin 3.5, Globulin 3.1, Albumin/Globulin Ratio 1.1 12/25/24 13:22: Troponin I 0.06 H 12/25/24 17:49: Troponin I 0.07 H 12/26/24 04:37: WBC 6.1, RBC 3.67 L, Hgb 10.7 L, Hct 32.7 L, MCV 89.1, MCH 29.2, MCHC 32.7, RDW 13.8, Plt Count 301, MPV 9.5, Neut % (Auto) 85.7 H, Lymph % (Auto) 4.4 L, [place] % (Auto) 9.4 H, Eos % (Auto) 0.0 L, Baso % (Auto) 0.2, Neut # (Auto) 5.2, Lymph # (Auto) 0.3 L, [place] # (Auto) 0.6, Eos # (Auto) 0.0, Baso # (Auto) 0.0, Total Counted 100, Neutrophils % (Manual) 94 H, Lymphocytes % (Manual) 4 L, Monocytes % (Manual) 2, Platelet Estimate Normal, RBC Morphology Normal, Sodium 137, Potassium 3.6, Chloride 99, Carbon Dioxide 31 H, Anion Gap 10.6, BUN 20, Creatinine 0.80, Estimated Creat Clear 63, Estimated GFR 94, Est GFR ( Amer) 114, Glucose 112 H, Calcium 8.9, Magnesium 1.8, Total Bilirubin 0.5, AST 23, ALT 14, Alkaline Phosphatase 68, Total Protein 6.0 L, A lbumin 3.3 L, Globulin 2.7, Albumin/Globulin Ratio 1.2 I & O for Labs for Last 24 Hours: Intake & Output 12/23/24 12/24/24 12/25/24 12/26/24 23:59 23:59 23:59 23:59 Intake Total 770 / 1010 1240 / 1240 Output Total 1100 / 1100 Balance -330 / -90 1240 / 1240 Weight 158 lb 9 oz 154 lb 9.6 oz Microbiology Reports for the Last 24 Hours: Microbiology 12/26/24 00:23 Sputum - Expectorated Sputum Gram Stain - Final Constitutional: Present moderate distress Head: Present normocephalic and atraumatic ENT: Present normal exam, normal oropharynx and mucous membranes moist Neck: Present normal inspection and full ROM Respiratory: Present prolonged expiratory phase, respiratory distress, distant breath sounds, diminished air movement and able to speak in complete sentences; Absent wheezes Cardiac: Present S1/S2, Tachycardia and radial pulses present GI: Present soft and distention; Absent tenderness or guarding Skin: Present intact; Absent cyanosis or jaundice Neuro: Present alert, awake and oriented x 3 Extremities: Present normal inspection; Absent clubbing or cyanosis Psychiatric: Present normal affect and cooperative Meds Home Medications and Allergies Home Medications ?Medication ?Instructions ?Recorded ?Confirmed ?Type aspirin 81 mg tablet,delayed 81 mg PO DAILY 10/23/23 1 History release (Adult Aspirin Regimen) metoprolol succinate 50 mg 50 mg PO DAILY 12/25/24 History tablet,extended release 24 hr zolpidem 5 mg tablet 5 mg PO HSP PRN Insomnia 12/25/24 History New Prescriptions to Start Prescriptions: Allergies Allergy/AdvReac Type Severity Reaction Status Date / Time Penicillins Allergy Mild RASH Verified 12/25/24 08:26 Results Laboratory Findings 12/26/24 04:37 12/26/24 04:37 PT/INR, D-dimer PT 12.9 seconds (10.1-12.5) H 12/25/24 10:35 INR 1.18 (0.9-1.1) H 12/25/24 10:35 Abnormal lab findings: Abnormal Labs 12/25/24 12/25/24 12/25/24 10:35 13:22 17:49 RBC 3.85 L Hgb 11.6 L Hct 34.3 L Neut % (Auto) 84.4 H Lymph % (Auto) 3.7 L [place] % (Auto) Eos % (Auto) Lymph # (Auto) 0.2 L Neutrophils % (Manual) 90 H Lymphocytes % (Manual) 3 L PT 12.9 H INR 1.18 H Carbon Dioxide Glucose 105 H Troponin I 0.05 H 0.06 H 0.07 H NT-Pro-B Natriuret Pep 15070 H Total Protein Albumin 12/26/24 04:37 RBC 3.67 L Hgb 10.7 L Hct 32.7 L Neut % (Auto) 85.7 H Lymph % (Auto) 4.4 L [place] % (Auto) 9.4 H Eos % (Auto) 0.0 L Lymph # (Auto) 0.3 L Neutrophils % (Manual) 94 H Lymphocytes % (Manual) 4 L PT INR Carbon Dioxide 31 H Glucose 112 H Troponin I NT-Pro-B Natriuret Pep Total Protein 6.0 L Albumin 3.3 L Assessment and Plan *Assessment and plan (1) Bilateral pneumonia: Status: Acute Qualifiers: Pneumonia type: due to unspecified organism Lung location: lower lobe of lung Qualified Code(s): J18.9 - Pneumonia, unspecified organism Category: Medical Code(s): J18.9 - Pneumonia, unspecified organism (2) Large pleural effusion: Status: Acute Category: Medical Code(s): J90 - Pleural effusion, not elsewhere classified (3) Acute respiratory failure with hypoxia: Status: Acute Category: Medical Code(s): J96.01 - Acute respiratory failure with hypoxia (4) Mediastinal lymphadenopathy: Status: Acute Category: Medical Code(s): R59.0 - Localized enlarged lymph nodes (5) Hilar lymphadenopathy: Status: Acute Category: Medical Code(s): R59.0 - Localized enlarged lymph nodes (6) Multiple lung nodules on CT: Status: Acute Category: Medical Code(s): R91.8 - Other nonspecific abnormal finding of lung field Plan Mr. Taylor is a 74-year-old male with a diagnosis of non-small cell lung cancer underwent chemoradiation presented today with worsening respiratory distress and pulmonary was called for further evaluation and management. Patient also receiving antibiotics for concern pneumonia by primary care physician as an outpatient basis. Cards a diagnosis of COPD, using Breyna inhaler at baseline, not using any oxygen supplementation. CTA PE protocol upon admission, no pulmonary embolism. Bilateral pleural effusions. Left effusion appears loculated, with adjacent airspace disease and likely radiation changes. Also noted to have worsening mediastinal hilar lymphadenopathy. New nodules also noted in right middle lobe, along with new left rib lesion concerning for worsening metastatic disease. The left effusion was present on his CT scan from April 2024 worsening. the left lower lobe mass and postobstructive Monia seen on his CT from April 2024 significantly improved. Currently receiving vancomycin and cefepime. Afebrile. Hemodynamically stable. No evidence of leukocytosis. Overall clinical picture concerning for worsening malignancy. The possible loculated pleural effusion cannot be completely ruled out at this point of time. Plan: Continue vancomycin and cefepime pending sputum culture results. Will wean to levofloxacin if cultures negative. Scheduled for thoracentesis. Continue oxygen supplementation on as-needed basis to maintain O2 saturation goal of 90% and above Continue to evaluate for possible recurrence. Patient admits he had a PET scan done at an outside hospital October that did not show any recurrence. Will obtain imaging for further review. Volume optimization as per primary team and cardiology.
--- NOTE | 2024-12-26 10:38 | US_ITS ---
FINAL REPORT CLINICAL HISTORY: bilat pleural effusions / dr. howell did not perform thora due to lack of fluid FINDINGS: Limited imaging of the lower chest was obtained bilaterally. There are trace bilateral pleural effusions, [id number]. Neither side was large enough for thoracentesis. IMPRESSION: Insufficient fluid for thoracentesis. Reviewed, Interpreted and Dictated by Radha Coates MD Transcribed by Jessie Mcbride Authenticated and [facility]
--- NOTE | 2024-12-26 11:03 | EXP.CARD.CON ---
History of Present Illness History of Present Illness Consult date: 12/26/24 Requesting physician: Lv Capellan Consult reason: shortness of breath Chief complaint: Shortness of breath History of present illness: This is a 74-year-old white gentleman who presented to the emergency department with shortness of breath. He has known non-small cell lung cancer diagnosed earlier this year. Underwent chemo and radiation and finished his last course of chemo and radiation in July of this year. The patient was being treated for pneumonia and was having worsening shortness of breath despite being on antibiotics. He was sent to the emergency department for further evaluation of his pneumonia. While in the emergency department the patient had imaging that shows decreasing size of his lung cancer and no PE. He does have a new lytic lesion to the fifth rib. His BNP was elevated greater than 10,000 and had an effusion noted. The patient was subsequently admitted to the hospital. Echocardiogram shows an ejection fraction of 10%. He reports a past medical history of HFrEF with his ejection fraction around 39% the last time he saw his post graduate internship who was Dr. Horton. He has not found a new post graduate internship since Dr. Horton retired. He reports having an NC at the age of 34 in 1984. He had CABG x 5 vessels in 1993. He had subsequent stenting in 2003 and 2010. His most recent cardiac catheterization in 2011 and 2016 he got no stenting. He denies chest pain or pressure. He states that following his last round of chemo and radiation in July of this year he started to feel really good. He states that he was back to walking outside and walking 2 miles a day. Then he states around August or September he started feeling bad and did not have the energy to continue to walk. His shortness of breath has been progressively worsening since August or September of this year. He attributed this to his underlying lung cancer and lung disease. He states that he has been so concerned about recovering from his lung cancer that he really did not think that his symptoms could be from his heart because he does not have any chest pain or pressure. He does have associated bilateral lower extremity edema which is mild. He denies any fever, chills, nausea, vomiting or diarrhea. [facility] Disclaimer: The information contained in this section may have been updated after the patient was seen, as this information can be updated by other users. Medical History (Updated 10/16/25 @ 11:54 by Cathy Celaya MD) Multiple lung nodules on CT Hilar lymphadenopathy Mediastinal lymphadenopathy Large pleural effusion Ischemic cardiomyopathy LV dysfunction Non-STEMI (non-ST elevated myocardial infarction) Elevated troponin Bilateral pneumonia Acute on chronic HFrEF (heart failure with reduced ejection fraction) Coronary artery disease Kidney stone History of heart attack Hyperlipidemia Hypertension Surgical History (Updated 12/26/24 @ 11:12 by Rach Chua APRN) S/P CABG x 5 History of open heart surgery History of cardiac catheterization Social History Smoking Status: Current every day smoker alcohol intake: never current occupational status: other Travel in the last 8 weeks?: None Have you lived/traveled outside [place] in past 30 days?: No Contact w/someone who lives/traveled outside [place] past 30 days?: No Exposure to someone with infectious disease in past 14 days?: No Do you have a fever (greater than 100.4 F or 38 C)?: No Have you tested positive for COVID-19?: No Exposed to someone with COVID-19 in past 14 days?: No Do you have a sore throat?: No Do you have a cough?: No Do you have any weakness?: No Do you have any diarrhea?: No Are you experiencing any unusual bleeding?: No Do you have any muscle aches/pain?: No Do you have any abdominal pain?: No Are you experiencing loss of taste or smell?: No Review of Systems Review of Systems Review of systems:: pertinent systems reviewed and negative unless documented below Constitutional Constitutional: Reports system reviewed and no additional complaints, except as documented, Reports fatigue and Reports weakness Eyes Eyes: Reports system reviewed and no additional complaints, except as documented ENT Ears, Nose, Mouth, and Throat: Reports system reviewed and no additional complaints, except as documented *Cardiovascular Cardiovascular: Reports system reviewed and no additional complaints, except as documented, Denies chest pain, Reports dyspnea, Reports dyspnea on exertion, Reports leg edema and Reports pedal edema *Respiratory Respiratory: Reports system reviewed and no additional complaints, except as documented, Reports dyspnea and Reports dyspnea on exertion *Gastrointestinal Gastrointestinal: Reports system reviewed and no additional complaints, except as documented *Genitourinary Genitourinary: Reports system reviewed and no additional complaints, except as documented *Musculoskeletal Musculoskeletal: Reports system reviewed and no additional complaints, except as documented Integumentary/Breasts Skin/Breast: Reports system reviewed and no additional complaints, except as documented *Neurologic Neurologic: Reports system reviewed and no additional complaints, except as documented and Reports weakness Psychiatric Psychiatric: Reports system reviewed and no additional complaints, except as documented Endocrine Endocrine: Reports system reviewed and no additional complaints, except as documented and Reports fatigue Hematologic/Lymphatic Hematologic/Lymphatic: Reports system reviewed and no additional complaints, except as documented Allergic/Immunologic Allergic/Immunologic: Reports system reviewed and no additional complaints, except as documented Exam Data for Last 24 hours Vital signs and Labs for Last 24 Hours: Temp Pulse Resp BP Pulse Ox O2 Del Method 97.9 F 88 18 114/71 96 Room Air 12/26/24 08:00 12/26/24 11:02 12/26/24 08:00 12/26/24 08:00 12/26/24 08:00 12/26/24 09:00 Laboratory Results - last 24 hr 12/25/24 10:30: Procalcitonin 0.061 12/25/24 10:35: WBC 6.2, RBC 3.85 L, Hgb 11.6 L, Hct 34.3 L, MCV 89.1, MCH 30.1, MCHC 33.8, RDW 14.0, Plt Count 297, MPV 9.2, Neut % (Auto) 84.4 H, Lymph % (Auto) 3.7 L, Towner % (Auto) 8.7, Eos % (Auto) 2.7, Baso % (Auto) 0.3, Neut # (Auto) 5.2, Lymph # (Auto) 0.2 L, Towner # (Auto) 0.5, Eos # (Auto) 0.2, Baso # (Auto) 0.0, Total Counted 100, Neutrophils % (Manual) 90 H, Lymphocytes % (Manual) 3 L, Monocytes % (Manual) 5, Eosinophils % (Manual) 2, Platelet Estimate Normal, RBC Morphology Normal, PT 12.9 H, INR 1.18 H, Sodium 137, Potassium 3.9, Chloride 100, Carbon Dioxide 28, Anion Gap 12.9, BUN 20, Creatinine 0.80, Estimated Creat Clear 66, Estimated GFR 94, Est GFR ( Amer) 114, Glucose 105 H, Calcium 9.0, Magnesium 1.8, Total Bilirubin 1.1, AST 26, ALT 14, Alkaline Phosphatase 74, Troponin I 0.05 H, NT-Pro-B Natriuret Pep 35164 H, Total Protein 6.6, Albumin 3.5, Globulin 3.1, Albumin/Globulin Ratio 1.1 12/25/24 13:22: Troponin I 0.06 H 12/25/24 17:49: Troponin I 0.07 H 12/26/24 04:37: WBC 6.1, RBC 3.67 L, Hgb 10.7 L, Hct 32.7 L, MCV 89.1, MCH 29.2, MCHC 32.7, RDW 13.8, Plt Count 301, MPV 9.5, Neut % (Auto) 85.7 H, Lymph % (Auto) 4.4 L, Towner % (Auto) 9.4 H, Eos % (Auto) 0.0 L, Baso % (Auto) 0.2, Neut # (Auto) 5.2, Lymph # (Auto) 0.3 L, Towner # (Auto) 0.6, Eos # (Auto) 0.0, Baso # (Auto) 0.0, Total Counted 100, Neutrophils % (Manual) 94 H, Lymphocytes % (Manual) 4 L, Monocytes % (Manual) 2, Platelet Estimate Normal, RBC Morphology Normal, Sodium 137, Potassium 3.6, Chloride 99, Carbon Dioxide 31 H, Anion Gap 10.6, BUN 20, Creatinine 0.80, Estimated Creat Clear 63, Estimated GFR 94, Est GFR ( Amer) 114, Glucose 112 H, Calcium 8.9, Magnesium 1.8, Total Bilirubin 0.5, AST 23, ALT 14, Alkaline Phosphatase 68, Total Protein 6.0 L, Albumin 3.3 L, Globulin 2.7, Albumin/Globulin Ratio 1.2 I & O for Last 24 hours: Intake & Output 12/23/24 12/24/24 12/25/24 12/26/24 23:59 23:59 23:59 23:59 Intake Total 770 / 1010 1240 / 1240 Output Total 1100 / 1100 Balance -330 / -90 1240 / 1240 Weight 158 lb 9 oz 154 lb 9.6 oz Microbiology Reports for the Last 24 Hours: Microbiology 12/26/24 00:23 Sputum - Expectorated Sputum Gram Stain - Final Constitutional Constitutional: no acute distress and average body habitus *Routine HEENT Exam Head: Present normocephalic and atraumatic ENT: Present mucous membranes moist *Routine Neck Exam Neck: Present supple, full ROM and normal carotid upstroke; Absent JVD, carotid bruit or lymphadenopathy *Routine Respiratory Exam Respiratory: Present CTA bilaterally, normal respiratory effort, able to speak in complete sentences and symmetric chest movement *Routine Cardiovascular Exam Cardiovascular: Present RRR, Normal S1 and Normal S2; Absent murmur or gallop *Routine Abdominal Exam Abdominal: Present soft and normoactive bowel sounds; Absent tenderness, distended or organomegaly *Routine Extremities Exam Extremities: Present full ROM, pulses intact and normal capillary refill; Absent cyanosis, clubbing or edema *Routine Skin Exam Skin: Present intact and warm; Absent erythema *Routine Neurological Exam Neurological: Present alert, oriented X3 and CN II-XII intact; Absent sensory deficit or motor deficit Routine Psychiatric Exam Psychiatric: Present normal affect Meds Home Medications and Allergies Home Medications ?Medication ?Instructions ?Recorded ?Confirmed ?Type aspirin 81 mg tablet,delayed 81 mg PO DAILY 10/23/23 12/25/24 History release (Adult Aspirin Regimen) metoprolol succinate 50 mg 50 mg PO DAILY 12/25/24 12/25/24 History tablet,extended release 24 hr zolpidem 5 mg tablet 5 mg PO HSP PRN Insomnia 12/25/24 12/25/24 History New Prescriptions to Start Prescriptions: Allergies Allergy/AdvReac Type Severity Reaction Status Date / Time Penicillins Allergy Mild RASH Verified 12/25/24 08:26 Assessment and Plan *Assessment and plan (1) Non-STEMI (non-ST elevated myocardial infarction): Status: Acute Category: Medical Code(s): I21.4 - Non-ST elevation (NSTEMI) myocardial infarction (2) Acute on chronic HFrEF (heart failure with reduced ejection fraction): Status: Acute Category: Medical Code(s): I50.23 - Acute on chronic systolic (congestive) heart failure (3) Ischemic cardiomyopathy: Status: Acute Category: Medical Code(s): I25.5 - Ischemic cardiomyopathy (4) LV dysfunction: Status: Acute Category: Medical Code(s): I51.9 - Heart disease, unspecified (5) Bilateral pneumonia: Status: Acute Qualifiers: Lung location: lower lobe of lung Pneumonia type: due to unspecified organism Qualified Code(s): J18.9 - Pneumonia, unspecified organism Category: Medical Code(s): J18.9 - Pneumonia, unspecified organism (6) Coronary artery disease: Status: Acute Qualifiers: Associated angina: with other forms of angina Coronary Disease-Associated Artery/Lesion type: [place] artery [place] vs. transplanted heart: [place] heart Qualified Code(s): I25.118 - Atherosclerotic heart disease of [place] coronary artery with other forms of angina pectoris Category: Medical Code(s): I25.10 - Atherosclerotic heart disease of [place] coronary artery without angina pectoris (7) S/P CABG x 5: Status: Acute Category: Surgical Code(s): Z95.1 - Presence of aortocoronary bypass graft (8) COPD (chronic obstructive pulmonary disease): Status: Chronic Qualifiers: COPD type: unspecified COPD Qualified Code(s): J44.9 - Chronic obstructive pulmonary disease, unspecified Category: Medical Code(s): J44.9 - Chronic obstructive pulmonary disease, unspecified (9) Non-small cell lung cancer: Status: Chronic Qualifiers: Laterality: left Qualified Code(s): C34.92 - Malignant neoplasm of unspecified part of left bronchus or lung Category: Medical Code(s): C34.90 - Malignant neoplasm of unspecified part of unspecified bronchus or lung (10) Shortness of breath: Status: Acute Category: Medical Code(s): R06.02 - Shortness of breath (11) Hyperlipidemia: Status: Chronic Qualifiers: Hyperlipidemia type: mixed hyperlipidemia Qualified Code(s): E78.2 - Mixed hyperlipidemia Category: Medical Code(s): E78.5 - Hyperlipidemia, unspecified (12) History of coronary artery stent placement: Status: Chronic Category: Surgical Code(s): Z95.5 - Presence of coronary angioplasty implant and graft (13) Status post AAA (abdominal aortic aneurysm) repair: Status: Chronic Category: Surgical Code(s): Z98.890 - Other specified postprocedural states; Z86.79 - Personal history of other diseases of the circulatory system (14) Hypertension: Status: Chronic Qualifiers: Hypertension type: primary hypertension Qualified Code(s): I10 - Essential (primary) hypertension Category: Medical Code(s): I10 - Essential (primary) hypertension Plan Plan: 1. the patient was admitted to the hospital and found to have pneumonia. He is getting IV antibiotics. Will defer to the hospitalist/pulmonology. 2. Echocardiogram shows an ejection fraction of 10% with grade 2 diastolic dysfunction. There is akinesis of the inferior, inferior lateral, inferior septal and septal LV sexton. There is moderate MR and moderate TR. RVSP is 45 mmHg. The patient is being diuresed with Lasix 40 mg IV once daily. Consider starting spironolactone tomorrow. 3. The patient has severe LV dysfunction. This is most likely ischemic cardiomyopathy. Due to his severe LV dysfunction the patient is an increased risk for sudden cardiac . He will need a LifeVest in place prior to discharge home. Will get a LifeVest ordered. 4. The patient has a non-STEMI. He has worsening of his ischemic cardiomyopathy and HFrEF. Known CAD with CABG. Patient will undergo left cardiac catheterization today to evaluate his coronary artery disease. He also had recent chemo and radiation to the chest. High likelihood for coronary artery disease progression. 5. The patient has been educated risk of benefits of proceeding with left cardiac catheterization. The patient verbalized understanding and is agreeable to proceeding with the procedure. 6. The patient will be n.p.o. in preparation for left cardiac catheterization. 7. Continue metoprolol for HFrEF. 8. Start Entresto 24/26 mg p.o. twice daily for HFrEF. 9. Once the patient is euvolemic we will get him started on Jardiance for HFrEF. 10. His blood pressure is well-controlled. 11. His LDL goal is less than 55. Start Lipitor 40 mg p.o. nightly. Will get a lipid panel in the morning. 12. The patient does have a history of non-small cell lung cancer. He states his last PET scan showed that his lung cancer was improving. Will defer this to the hospitalist/pulmonology. 13. Further recommendations will be made pending the patient's response to treatment and the results of his left cardiac catheterization today. Thank you for the opportunity to help participate in the care of this patient. All recommendations and orders are per Dr. Keyes.
[2024-12-26] MEDS: SACUBITRIL/VALSARTAN 24-26MG TABLET 1 EACH PO ×2 (11:38→21:51)
--- NOTE | 2024-12-26 12:03 | IR_ITS ---
APPROVED REPORT Patient Location: Inpatient PROCEDURES Left heart catheterization Left ventriculogram Selective coronary angiogram Left internal mammary angiography Selective engagement of the saphenous vein graft to the circumflex artery Selective engagement of the saphenous vein graft to the diagonal artery Selective engagement of the saphenous vein graft to the right coronary INDICATION Acute non-ST elevation myocardial infarction, Coronary artery disease, New onset cardiomyopathy, History of coronary bypass surgery Informed consent was obtained prior to the procedure. COMPLICATIONS NONE Estimated Blood Loss: LESS THAN 10 ML TECHNIQUE One percent lidocaine used to anesthetize the right groin. The right femoral artery was accessed via the Seldinger technique and a 5 Khmer sheath was placed in the right femoral artery. A JL 4, JR4 catheter were used to perform left heart catheterization, left ventriculogram selective coronary angiography as well as selective engagement of the 3 vein grafts and the left internal mammary artery. The 5 Khmer sheath was upsized to a 6 Khmer sheath and a multipurpose catheter was used to intubate 2 of the saphenous vein grafts as well as the right coronary artery. At the end of the procedure the apparatus was removed the groin was reprepped closure change sheath was removed and hemostasis was achieved using Perclose device patient was transferred to the postop boarding in stable condition ANGIOGRAPHIC RESULTS The left main artery Patent The left anterior descending artery Has an ostial 90% stenosis followed by small caliber proximal LAD which gives rise to a small septal ip litigation paralegal and an extremely small first diagonal artery. Distal to the first diagonal artery the LAD is occluded The circumflex artery Is nondominant and runs in the AV groove and does not give off any substantive obtuse marginal arteries The right coronary artery Proximally occluded The QUIJANO ventriculogram reveals Dilated globally hypokinetic ejection fraction 15% The left ventricular end-diastolic pressure 20 to 25 mmHg JEONG to LAD patent Saphenous to circumflex artery ostially occluded Saphenous to right coronary artery ostially occluded Saphenous to second diagonal artery has proximal calcified 50 to 60% stenosis but is patent. Immediately to its anastomosis onto a small second diagonal artery there is a 70% stenosis. The second diagonal artery supplies a small amount of myocardium IMPRESSION Coronary disease as described above none of which is amenable to percutaneous nor surgical revascularization Dilated ventricle with reduced ejection fraction Elevated LVEDP PLAN 1. GDMT for systolic heart failure 2. GDMT for coronary artery disease 3. Given patient has postmyocardial infarction and did not receive revascularization he needs to wait 40 days and then reassess ejection fraction and then likely proceed with AICD placement and/or PURCHASE PRICE ANALYST-D if he is a candidate 4. Cardiac rehabilitation 5. LDL less than 55 to proceed with high intensity statin 6. Avoidance of tobacco products Electronically signed by : Wenceslao Mcdaniels MD 12/26/2024 15:04:35
[2024-12-26] MEDS: HEPARIN 1,000 UNITS/500ML NS (CATH LAB) 3000 UNIT IV (14:13)
[2024-12-26] MEDS: MIDAZOLAM HCL 1MG/ML 5ML VIAL 1 MG IV (14:13)
[2024-12-26] MEDS: LIDOCAINE 1% 10ML MDV 10 ML IJ (14:13)
[2024-12-26] MEDS: 0.9 % SODIUM CHLORIDE 500 ML 25 ML IV (14:14)
[2024-12-26] MEDS: FENTANYL 100MCG/2ML VIAL 50 MCG IV (14:14)
--- NOTE | 2024-12-26 15:09 | SUR.PHASEII ---
called report to mabel greene
[2024-12-26] MEDS: IOPAMIDOL-370 (76%);100ML BOTTLE 110 ML IV (15:18)
--- NOTE | 2024-12-26 17:13 | PC.NURSE ---
pt sitting up in bed. heart cath this shift. 0 stents. pt tolerating well. R groin site dressing c/d/i. no complaints at this time.vss. call light within reach
--- NOTE | 2024-12-26 18:31 | EXP.ACUTE.PN ---
Subjective *Date: 12/26/24 *Time: 18:31 Interval history: Feeling better with diuresis. Denies nausea or vomiting. Diuresing well. Ambulating little more comfortably, improved dyspnea Medical Exam Vital signs and Labs for Last 24 Hours: Vital Signs Temp Pulse Pulse Resp BP Pulse Ox O2 Del Method 12/26/24 17:40 77 20 136/73 94 L Room Air 12/26/24 17:10 77 16 144/90 H 95 Room Air 12/26/24 16:56 Room Air 12/26/24 16:40 86 14 152/97 H 92 L Room Air 12/26/24 16:10 83 12 148/102 H 96 Room Air 12/26/24 15:55 83 16 156/91 H 95 Room Air 12/26/24 15:40 84 14 130/85 92 L Room Air 12/26/24 15:25 98.4 F 89 12 152/97 H 97 Room Air 12/26/24 15:10 86 16 127/75 92 L Room Air 12/26/24 15:00 85 16 131/74 94 L Room Air 12/26/24 15:00 Room Air 12/26/24 14:55 90 18 135/83 93 L Room Air 12/26/24 14:50 88 90 16 135/83 95 Room Air 12/26/24 12:00 98 F 83 16 139/83 96 Room Air 12/26/24 11:02 88 12/26/24 11:02 86 12/26/24 09:00 Room Air 12/26/24 08:00 97.9 F 88 18 114/71 96 Room Air 12/26/24 08:00 Room Air 12/26/24 06:59 Room Air 12/26/24 06:28 76 12/26/24 06:28 85 12/26/24 06:28 91 L Room Air 12/26/24 05:00 Room Air 12/26/24 04:00 97.8 F 73 12 126/76 95 Room Air 12/26/24 03:00 Room Air 12/26/24 01:00 Room Air 12/26/24 00:00 97.7 F 86 12 114/73 93 L Room Air 12/25/24 23:40 92 H 24 12/25/24 23:40 92 H 12/25/24 23:40 96 H 12/25/24 23:40 93 L Room Air 12/25/24 23:00 Room Air 12/25/24 21:00 Room Air 12/25/24 20:00 95 Room Air 12/25/24 20:00 97.7 F 86 12 130/86 92 L Room Air 12/25/24 18:46 Room Air Intake and Output 12/26/24 12/26/24 12/26/24 07:59 15:59 23:59 Intake Total 340 / 1712.917 912.917 / 1712.917 460 / 1712.917 Output Total 1100 / 1700 600 / 1700 Balance 340 / 12.917 -187.083 / 12.917 -140 / 12.917 Intake: Intake, Oral Amount 240 / 1500 900 / 1500 360 / 1500 Intake, Total IV Amount 100 / 212.917 12.917 / 212.917 100 / 212.917 0.9 % Sodium Chloride 500 ml @ 12.917 / 12.917 25 mls/hr IV .Q25H [facility] Rx#: [id number] Cefepime HCl 2 gm In 0.9 % 100 / 200 100 / 200 Sodium Chloride 100 ml @ 200 mls/hr IV Q8H [facility] Rx#:[id number] Output: Output, Urine Amount 1100 / 1700 600 / 1700 Other: Weight 70.125 kg Patient Weight 12/26/24 23:59 Weight 70.125 kg Laboratory Results - last 24 hr 12/25/24 17:49: Troponin I 0.07 H 12/26/24 04:37: WBC 6.1, RBC 3.67 L, Hgb 10.7 L, Hct 32.7 L, MCV 89.1, MCH 29.2, MCHC 32.7, RDW 13.8, Plt Count 301, MPV 9.5, Neut % (Auto) 85.7 H, Lymph % (Auto) 4.4 L, [place] % (Auto) 9.4 H, Eos % (Auto) 0.0 L, Baso % (Auto) 0.2, Neut # (Auto) 5.2, Lymph # (Auto) 0.3 L, [place] # (Auto) 0.6, Eos # (Auto) 0.0, Baso # (Auto) 0.0, Total Counted 100, Neutrophils % (Manual) 94 H, Lymphocytes % (Manual) 4 L, Monocytes % (Manual) 2, Platelet Estimate Normal, RBC Morphology Normal, Sodium 137, Potassium 3.6, Chloride 99, Carbon Dioxide 31 H, Anion Gap 10.6, BUN 20, Creatinine 0.80, Estimated Creat Clear 63, Estimated GFR 94, Est GFR ( Amer) 114, Glucose 112 H, Calcium 8.9, Magnesium 1.8, Total Bilirubin 0.5, AST 23, ALT 14, Alkaline Phosphatase 68, Lactate Dehydrogenase 174 L, Total Protein 6.0 L, Albumin 3.3 L, Globulin 2.7, Albumin/Globulin Ratio 1.2 I & O for Labs for Last 24 Hours: Intake & Output 12/23/24 12/24/24 12/25/24 12/26/24 23:59 23:59 23:59 23:59 Intake Total 770 / 1010 1712.917 / 1712.917 Output Total 1100 / 1100 1700 / 1700 Balance -330 / -90 12.917 / 12.917 Weight 71.923 kg 70.125 kg Microbiology Reports for the Last 24 Hours: Microbiology 12/26/24 00:23 Sputum - Expectorated Sputum Gram Stain - Final Constitutional: Present mild distress, thin, chronically ill appearing and cooperative Head: Present atraumatic and normocephalic ENT: Present normal exam Respiratory: Present normal respiratory effort; Absent rhonchi, wheezes or crackles Cardiac: Present Reg Rate and Rhythm GI: Present normal bowel sounds; Absent tenderness Extremities: Present normal inspection and full ROM Skin: Present intact; Absent erythema Neuro: Present Grossly Intact, alert, awake, oriented x 3 and moves all extremities Assessment and Plan *Assessment and plan (1) Acute on chronic HFrEF (heart failure with reduced ejection fraction): Status: Acute Category: Medical Code(s): I50.23 - Acute on chronic systolic (congestive) heart failure (2) Bilateral pneumonia: Status: Acute Qualifiers: Pneumonia type: due to unspecified organism Lung location: lower lobe of lung Qualified Code(s): J18.9 - Pneumonia, unspecified organism Category: Medical Code(s): J18.9 - Pneumonia, unspecified organism (3) COPD (chronic obstructive pulmonary disease): Status: Chronic Qualifiers: COPD type: unspecified COPD Qualified Code(s): J44.9 - Chronic obstructive pulmonary disease, unspecified Category: Medical Code(s): J44.9 - Chronic obstructive pulmonary disease, unspecified (4) Non-small cell lung cancer: Status: Chronic Qualifiers: Laterality: left Qualified Code(s): C34.92 - Malignant neoplasm of unspecified part of left bronchus or lung Category: Medical Code(s): C34.90 - Malignant neoplasm of unspecified part of unspecified bronchus or lung (5) Status post AAA (abdominal aortic aneurysm) repair: Status: Chronic Category: Surgical Code(s): Z98.890 - Other specified postprocedural states; Z86.79 - Personal history of other diseases of the circulatory system (6) Tobacco use disorder, continuous: Status: Chronic Category: Medical Code(s): F17.209 - Nicotine dependence, unspecified, with unspecified nicotine-induced disorders (7) BPH with obstruction/lower urinary tract symptoms: Status: Chronic Category: Medical Code(s): N40.1 - Benign prostatic hyperplasia with lower urinary tract symptoms; N13.8 - Other obstructive and reflux uropathy (8) Status post aorto-coronary artery bypass graft: Status: Chronic Category: Surgical Code(s): Z95.1 - Presence of aortocoronary bypass graft Plan Mr. Oviedo is a 74-year-old male with history of lung cancer in the past year. History of heart failure. Previous CABG and CAD. Presented with worsening dyspnea. Was referred by his PCP due to failure of outpatient therapy after completing antibiotics and still having shortness of breath. Workup in the ER concerning for CHF exacerbation and persistent pneumonia. Discussed case with ER physician, request admission for treatment of pneumonia and CHF. I agreed to admit for further care. Stable on room air however quite short of breath on exertion. PSI/port score of 115, class IV risk. Admitted to hospital for IV antibiotics, pulmonology and cardiology eval's. Problems addressed as follows: Pneumonia Non-small cell lung cancer COPD - Likely bacterial, failure of outpatient therapy. Continue cefepime 2 g every 8 hours. Continue vancomycin for at least 48 hours. Sputum cultures pending. - Last treatments in October for lung cancer. CT of the chest per my review showing what is concerning for a new lytic lesion of rib. -Respiratory panel negative for flu and COVID - Sputum culture pending - DuoNebs every 6 hours scheduled, supplemental oxygen as needed for goal sats greater 90%. Currently on room air. -Remains 6.1, hemoglobin 10.7. Stable on room air. Repeat CBC, CMP, magnesium ordered for the morning. Remainder of labs normal with kidney function normal at BUN 20, creatinine 0.8. Glucose 112. Potassium 3.6. -Monitor on continuous telemetry - Discussed case with pulmonology, was planning on thoracentesis however patient's effusion has improved. Continue diuresis. Continue vancomycin and cefepime pending sputum cultures. Plan to wean to Levaquin if cultures negative for discharge home. Acute on chronic HFrEF, poses high risk of threat to life Type II NSTEMI - Previous EF in the 30s per patient report. On metoprolol and occasionally lisinopril. -Formal echo read with EF 10%. Taken for left heart cath. Found to have 3 grafts that are occluded. Severe heart dysfunction. Medical management at this time. - Will need LifeVest at time of discharge. Reevaluate in 40 days, if EF not improved, will likely need AICD placed and/or PLANT PROPAGATOR-D - Continue Lipitor 40 mg nightly, Lasix 40 mg IV daily, metoprolol succinate 25 mg daily, and initiate Entresto 24/26 mg 1 tablet twice daily. - NSTEMI secondary to stress of CHF exacerbation and pneumonia - Continue aspirin 81 mg daily Full code Cardiac diet Lovenox 40 mg subcu daily
[2024-12-26] MEDS: LIDOCAINE 5% TRANSDERMAL PATCH 1 EACH TD (18:53)
[2024-12-26] MEDS: NICOTINE 21MG/24HR PATCH 21 MG TD (21:52)
[2024-12-26] MEDS: ATORVASTATIN 40MG TABLET 40 MG PO (21:53)
[2024-12-27] VITALS: BP 128/78; PULSE 82; RESP 12; TEMP 36.8; O2SAT 96
--- NOTE | 2024-12-27 03:56 | PC.NURSE ---
Pt had a cardiac Cath yesterday. Pt vitals of stable, is at the bedside. Pt has rested tonight. Pt is on 1 liter o2 per NC. Did education on how to monitor fluid imbalance r/t CHF, and recording a daily weight on a calendar to carry to MD appointments so the MD can see how much weight PT has lost or gained. him and his both expressed a understanding of this method of accountability. ABHAY GARCÍA RN
[2024-12-27 04:00] VITALS: BP 123/70; PULSE 75; RESP 16; TEMP 36.8; O2SAT 97; BMI 23.8
[2024-12-27] MEDS: CEFEPIME HCL 2 GM in 0.9 % SODIUM CHLORIDE 100 ML IV (04:54)
[2024-12-27 06:10] LABS: Hematocrit 33.5 % (42.0-52.0); Hemoglobin 11.1 g/dL (14.1-18.0); Immature Granulocytes % 0.2 %; Mean Corpuscular HGB Conc 33.1 g/dL (31.8-35.4); Mean Corpuscular Hemoglobin 29.8 pg (27.0-31.2); Mean Corpuscular Volume 89.8 fl (80-94); Nucleated Red Blood Cells % 0 %; Platelet Count 314 K/mm3 (142-424); Red Blood Count 3.73 M/mm3 (4.60-6.20); Red Cell Distribution Width-SD 45.6 fL; White Blood Count 6.5 K/mm3 (4.8-10.8)
[2024-12-27 06:21] VITALS: PULSE 82; O2SAT 91
[2024-12-27] MEDS: IPRATROPIUM/ALBUTEROL 3 ML NEB IH ×2 (06:21→11:07)
[2024-12-27 06:35] LABS: Albumin Level 2.9 g/dl (3.5-5.0)
[2024-12-27 06:38] LABS: Alanine Aminotransferase 12 U/L (12-78); Aspartate Amino Transferase 23 U/L (17-59); Bilirubin,Direct 0.0 mg/dl (0.0-0.4); Bilirubin,Unconjugated 0.5 mg/dL (0.0-1.1); Cholesterol 122 mg/dl (140-200); Total Protein,Serum 5.3 g/dl (6.3-8.2); Triglycerides 64 mg/dl (30-150)
[2024-12-27 06:39] LABS: HDL Cholesterol 32 mg/dl (40-60)
[2024-12-27 06:51] LABS: Albumin Level 3.1 g/dl (3.5-5.0); Chloride 98 mmol/L (98-107); Potassium 3.5 mmoL/L (3.5-5.1); Sodium 137 mmol/L (136-145)
[2024-12-27 06:54] LABS: Alanine Aminotransferase 14 U/L (12-78); Albumin/Globulin Ratio 1.1 (1.1-1.8); Alkaline Phosphatase 67 U/L (38-126); Anion Gap 10.5 mEq/L (5-15); Aspartate Amino Transferase 24 U/L (17-59); Bilirubin,Total 0.5 mg/dl (0.2-1.3); Blood Urea Nitrogen 22 mg/dl (9-20); Carbon Dioxide 32 mmol/L (22.0-30.0); Creatinine Clearance Estimated 66 mL/min (50-200); Creatinine,Serum 0.80 mg/dl (0.66-1.25); Estimated Glomerular Filt Rate 94 ml/min (>60); GFR (African American) 114 ML/MIN (>60); Globulin 2.7 g/dL (1.3-3.2); Total Protein,Serum 5.8 g/dl (6.3-8.2)
[2024-12-27 06:55] LABS: Calcium 8.3 mg/dl (8.4-10.2); Glucose 93 mg/dl (74-100); Magnesium 1.6 mg/dl (1.6-2.3)
[2024-12-27 06:57] LABS: Alkaline Phosphatase 65 U/L (38-126); Bilirubin,Indirect 0.5 mg/dL (0.0-0.9); Bilirubin,Total 0.5 mg/dl (0.2-1.3)
[2024-12-27 07:23] LABS: RBC Morphology Normal; Total Cells Counted 100
[2024-12-27 08:00] VITALS: BP 124/77; PULSE 90; RESP 17; TEMP 34.7; O2SAT 97
[2024-12-27] MEDS: ASPIRIN EC 81MG TABLET 81 MG PO (08:51)
[2024-12-27] MEDS: SACUBITRIL/VALSARTAN 24-26MG TABLET 1 EACH PO (08:51)
[2024-12-27] MEDS: FUROSEMIDE 40MG/4ML VIAL 40 MG IV (08:51)
[2024-12-27] MEDS: METOPROLOL SUCCINATE XL 25MG TABLET 25 MG PO (08:52)
[2024-12-27] MEDS: POTASSIUM CHLORIDE 20MEQ TAB 40 MEQ PO (08:52)
[2024-12-27] MEDS: MAGNESIUM SULFATE IN WATER 2 GM/50 ML PIGGYBACK IV ×2 (08:53→10:09)
[2024-12-27] MEDS: SPIRONOLACTONE 25MG TABLET 25 MG PO (10:09)
[2024-12-27] MEDS: EMPAGLIFLOZIN 10MG TABLET 10 MG PO (10:09)
[2024-12-27 11:08] VITALS: PULSE 78; PULSE 79; O2SAT 94
--- NOTE | 2024-12-27 11:11 | P.PN_ITS ---
Subjective Subjective Date: 12/27/24 Time: 10:00 Principal diagnosis: acute on chronic HFrEF, non-STEMI Interval history: This is a 74-year-old gentleman who was admitted to the hospital and found to have acute on chronic HFrEF. He also had a non-STEMI and was taken to the [facility] [employer] [facility]. The patient does have significant coronary artery disease but it was not amendable to percutaneous intervention or surgery. The patient has been diuresed. He also has non-small cell lung cancer and has completed chemo and radiation. Today he denies any chest pain or pressure. He states his shortness of breath is significantly improved and he is feeling much better. His lower extremity edema has improved. He denies any fever, chills, nausea, vomiting or diarrhea. Exam Data for Last 24 hours Vital signs and Labs for Last 24 Hours: Temp Pulse Resp BP Pulse Ox O2 Del Method O2 Flow Rate 94.4 F L 79 17 124/77 94 L Room Air 2 12/27/24 08:00 12/27/24 11:08 12/27/24 08:00 12/27/24 08:00 12/27/24 11:08 12/27/24 11:08 12/27/24 04:00 Laboratory Results - last 24 hr 12/26/24 04:37: Lactate Dehydrogenase 174 L 12/27/24 05:17: WBC 6.5, RBC 3.73 L, Hgb 11.1 L, Hct 33.5 L, MCV 89.8, MCH 29.8, MCHC 33.1, RDW 13.9, Plt Count 314, MPV 9.4, Neut % (Auto) 77.0, Lymph % (Auto) 7.8 L, [place] % (Auto) 12.7 H, Eos % (Auto) 1.5, Baso % (Auto) 0.8, Neut # (Auto) 5.0, Lymph # (Auto) 0.5 L, [place] # (Auto) 0.8, Eos # (Auto) 0.1, Baso # (Auto) 0.1, Total Counted 100, Neutrophils % (Manual) 88 H, Lymphocytes % (Manual) 5 L, Monocytes % (Manual) 7, Platelet Estimate Normal, RBC Morphology Normal, Sodium 137, Potassium 3.5, Chloride 98, Carbon Dioxide 32 H, Anion Gap 10.5, BUN 22 H, Creatinine 0.80, Estimated Creat Clear 66, Estimated GFR 94, Est GFR ( Amer) 114, Glucose 93, Calcium 8.3 L, Magnesium 1.6 D, Total Bilirubin 0.5 12/27/24 05:17: Total Bilirubin 0.5, Direct Bilirubin 0.0, Conjugated Bilirubin 0.0, Indirect Bilirubin 0.5, Unconjugated Bilirubin 0.5, AST 24 12/27/24 05:17: AST 23, ALT 14 12/27/24 05:17: ALT 12, Alkaline Phosphatase 67 12/27/24 05:17: Alkaline Phosphatase 65, Total Protein 5.8 L 12/27/24 05:17: Total Protein 5.3 L, Albumin 3.1 L 12/27/24 05:17: Albumin 2.9 L, Globulin 2.7, Albumin/Globulin Ratio 1.1, Triglycerides 64, Cholesterol 122 L, LDL Cholesterol Direct 84.01 L, VLDL Cholesterol 13, HDL Cholesterol 32 L, Cholesterol/HDL Ratio 3.8 H I & O for Last 24 hours: Intake & Output 12/24/24 12/25/24 12/26/24 12/27/24 23:59 23:59 23:59 23:59 Intake Total 770 / 1010 1812.917 / 2052.917 870 / 870 Output Total 1100 / 1100 1700 / 1700 600 / 600 Balance -330 / -90 112.917 / 352.917 270 / 270 Weight 158 lb 9 oz 154 lb 9.6 oz 161 lb 6.4 oz Microbiology Reports for the Last 24 Hours: Microbiology 12/26/24 00:23 Sputum - Expectorated Sputum Gram Stain - Final 12/26/24 00:23 Sputum - Expectorated Sputum Sputum Culture - Final Constitutional Constitutional: no acute distress and average body habitus *Routine HEENT Exam Head: Present normocephalic and atraumatic ENT: Present mucous membranes moist *Routine Neck Exam Neck: Present supple, full ROM and normal carotid upstroke; Absent JVD, carotid bruit or lymphadenopathy *Routine Respiratory Exam Respiratory: Present CTA bilaterally, normal respiratory effort, able to speak in complete sentences and symmetric chest movement *Routine Cardiovascular Exam Cardiovascular: Present RRR, Normal S1 and Normal S2; Absent murmur or gallop *Routine Abdominal Exam Abdominal: Present soft and normoactive bowel sounds; Absent tenderness, distended or organomegaly *Routine Extremities Exam Extremities: Present full ROM, pulses intact and normal capillary refill; Absent cyanosis, clubbing or edema *Routine Skin Exam Skin: Present intact and warm; Absent erythema *Routine Neurological Exam Neurological: Present alert, oriented X3 and CN II-XII intact; Absent sensory deficit or motor deficit Routine Psychiatric Exam Psychiatric: Present normal affect Progress Note: A&P Assessment and plan (1) Non-STEMI (non-ST elevated myocardial infarction): Status: Acute (2) Ischemic cardiomyopathy: Status: Acute (3) LV dysfunction: Status: Acute (4) Acute on chronic HFrEF (heart failure with reduced ejection fraction): Status: Acute (5) Coronary artery disease: Status: Acute (6) S/P CABG x 5: Status: Acute (7) Bilateral pneumonia: Status: Acute (8) COPD (chronic obstructive pulmonary disease): Status: Chronic (9) Non-small cell lung cancer: Status: Chronic (10) Status post AAA (abdominal aortic aneurysm) repair: Status: Chronic (11) Tobacco use disorder, continuous: Status: Chronic (12) Hyperlipidemia: Status: Acute Assessment and Plan Assessment and Plan for All Diagnoses:: Plan: 1. the patient was admitted to the hospital and found to have pneumonia. He is getting IV antibiotics. Will defer to the hospitalist/pulmonology. 2. Echocardiogram shows an ejection fraction of 10% with grade 2 diastolic dysfunction. There is akinesis of the inferior, inferior lateral, inferior septal and septal LV sexton. There is moderate MR and moderate TR. RVSP is 45 mmHg. The patient was diuresed with IV Lasix. Will stop IV Lasix and start Lasix 40 mg p.o. daily. 3. Start spironolactone 25 mg daily for HFrEF and diuresis. 4. The patient has severe LV dysfunction. This is most likely ischemic cardiomyopathy. Due to his severe LV dysfunction the patient is an increased risk for sudden cardiac . He will need a LifeVest in place prior to discharge home. LifeVest has been approved and will be fitted today. 5. The patient has a non-STEMI. The patient underwent left cardiac catheterization yesterday and was found to have severe coronary artery disease that is not amendable to percutaneous intervention or surgery. He will need to remain on aspirin 81 mg daily. 6. Continue metoprolol for HFrEF. 7. Continue Entresto mg p.o. twice daily for HFrEF. 8. Start Jardiance 10 mg daily for HFrEF. 9. His blood pressure is well-controlled. 10. His LDL goal is less than 55. His LDL is 84. He has been started on Lipitor. 11. The patient does have a history of non-small cell lung cancer. He states his last PET scan showed that his lung cancer was improving. Will defer this to the hospitalist/pulmonology. 12. No further recommendations at this time from a cardiac standpoint. The patient can be discharged home today once his LifeVest is in place. He will need to follow-up in cardiology clinic next week. The patient can be discharged on the following cardiac medications: Aspirin 81 mg daily Lipitor 40 mg p.o. nightly Jardiance 10 mg daily Lasix 40 mg daily Toprol XL 25 mg daily Entresto 24/26 mg p.o. twice daily Spironolactone 25 mg daily Thank you for the opportunity to help participate in the care of this patient. All recommendations and orders are per Dr. Keyes.
--- NOTE | 2024-12-27 11:32 | EXP.PULM.PN ---
Subjective *Date: 12/27/24 *Time: 12:47 Interval history: No acute respiratory events overnight. Continue to remain on room air. Pulmonology Exam Inpatient Vital signs and Labs for Last 24 Hours: Temp Pulse Resp BP Pulse Ox O2 Del Method O2 Flow Rate 94.4 F L 79 17 124/77 94 L Room Air 2 12/27/24 08:00 12/27/24 11:08 12/27/24 08:00 12/27/24 08:00 12/27/24 11:08 12/27/24 11:08 12/27/24 04:00 Laboratory Results - last 24 hr 12/26/24 04:37: Lactate Dehydrogenase 174 L 12/27/24 05:17: WBC 6.5, RBC 3.73 L, Hgb 11.1 L, Hct 33.5 L, MCV 89.8, MCH 29.8, MCHC 33.1, RDW 13.9, Plt Count 314, MPV 9.4, Neut % (Auto) 77.0, Lymph % (Auto) 7.8 L, [place] % (Auto) 12.7 H, Eos % (Auto) 1.5, Baso % (Auto) 0.8, Neut # (Auto) 5.0, Lymph # (Auto) 0.5 L, [place] # (Auto) 0.8, Eos # (Auto) 0.1, Baso # (Auto) 0.1, Total Counted 100, Neutrophils % (Manual) 88 H, Lymphocytes % (Manual) 5 L, Monocytes % (Manual) 7, Platelet Estimate Normal, RBC Morphology Normal, Sodium 137, Potassium 3.5, Chloride 98, Carbon Dioxide 32 H, Anion Gap 10.5, BUN 22 H, Creatinine 0.80, Estimated Creat Clear 66, Estimated GFR 94, Est GFR ( Amer) 114, Glucose 93, Calcium 8.3 L, Magnesium 1.6 D, Total Bilirubin 0.5 12/27/24 05:17: Total Bilirubin 0.5, Direct Bilirubin 0.0, Conjugated Bilirubin 0.0, Indirect Bilirubin 0.5, Unconjugated Bilirubin 0.5, AST 24 12/27/24 05:17: AST 23, ALT 14 12/27/24 05:17: ALT 12, Alkaline Phosphatase 67 12/27/24 05:17: Alkaline Phosphatase 65, Total Protein 5.8 L 12/27/24 05:17: Total Protein 5.3 L, Albumin 3.1 L 12/27/24 05:17: Albumin 2.9 L, Globulin 2.7, Albumin/Globulin Ratio 1.1, Triglycerides 64, Cholesterol 122 L, LDL Cholesterol Direct 84.01 L, VLDL Cholesterol 13, HDL Cholesterol 32 L, Cholesterol/HDL Ratio 3.8 H Temp Pulse Resp BP Pulse Ox O2 Del Method 97.9 F 88 18 114/71 96 Room Air 12/26/24 08:00 12/26/24 08:00 12/26/24 08:00 12/26/24 08:00 12/26/24 08:00 12/26/24 09:00 Laboratory Results - last 24 hr 12/25/24 10:15: SARS-CoV-2 (PCR) Not detected, Influenza A Untype (PCR) Not detected, Influenza Type B (PCR) Not detected 12/25/24 10:30: Procalcitonin 0.061 12/25/24 10:35: WBC 6.2, RBC 3.85 L, Hgb 11.6 L, Hct 34.3 L, MCV 89.1, MCH 30.1, MCHC 33.8, RDW 14.0, Plt Count 297, MPV 9.2, Neut % (Auto) 84.4 H, Lymph % (Auto) 3.7 L, [place] % (Auto) 8.7, Eos % (Auto) 2.7, Baso % (Auto) 0.3, Neut # (Auto) 5.2, Lymph # (Auto) 0.2 L, [place] # (Auto) 0.5, Eos # (Auto) 0.2, Baso # (Auto) 0.0, Total Counted 100, Neutrophils % (Manual) 90 H, Lymphocytes % (Manual) 3 L, Monocytes % (Manual) 5, Eosinophils % (Manual) 2, Platelet Estimate Normal, RBC Morphology Normal, PT 12.9 H, INR 1.18 H, VBG pH 7.39, VBG pCO2 40.6, VBG pO2 31.3, VBG HCO3 24.0, VBG Total CO2 25.3, VBG O2 Saturation 59.3, VBG Base Excess -0.9, VBG Lactic Acid 1.6, Sodium 137, Potassium 3.9, Chloride 100, Carbon Dioxide 28, Anion Gap 12.9, BUN 20, Creatinine 0.80, Estimated Creat Clear 66, Estimated GFR 94, Est GFR ( Amer) 114, Glucose 105 H, Calcium 9.0, Magnesium 1.8, Total Bilirubin 1.1, AST 26, ALT 14, Alkaline Phosphatase 74, Troponin I 0.05 H, NT-Pro-B Natriuret Pep 03508 H, Total Protein 6.6, Albumin 3.5, Globulin 3.1, Albumin/Globulin Ratio 1.1 12/25/24 13:22: Troponin I 0.06 H 12/25/24 17:49: Troponin I 0.07 H 12/26/24 04:37: WBC 6.1, RBC 3.67 L, Hgb 10.7 L, Hct 32.7 L, MCV 89.1, MCH 29.2, MCHC 32.7, RDW 13.8, Plt Count 301, MPV 9.5, Neut % (Auto) 85.7 H, Lymph % (Auto) 4.4 L, [place] % (Auto) 9.4 H, Eos % (Auto) 0.0 L, Baso % (Auto) 0.2, Neut # (Auto) 5.2, Lymph # (Auto) 0.3 L, [place] # (Auto) 0.6, Eos # (Auto) 0.0, Baso # (Auto) 0.0, Total Counted 100, Neutrophils % (Manual) 94 H, Lymphocytes % (Manual) 4 L, Monocytes % (Manual) 2, Platelet Estimate Normal, RBC Morphology Normal, Sodium 137, Potassium 3.6, Chloride 99, Carbon Dioxide 31 H, Anion Gap 10.6, BUN 20, Creatinine 0.80, Estimated Creat Clear 63, Estimated GFR 94, Est GFR ( Amer) 114, Glucose 112 H, Calcium 8.9, Magnesium 1.8, Total Bilirubin 0.5, AST 23, ALT 14, Alkaline Phosphatase 68, Total Protein 6.0 L, Albumin 3.3 L, Globulin 2.7, Albumin/Globulin Ratio 1.2 I & O for Labs for Last 24 Hours: Intake & Output 12/24/24 12/25/24 12/26/24 12/27/24 23:59 23:59 23:59 23:59 Intake Total 770 / 1010 1812.917 / 2052.917 870 / 870 Output Total 1100 / 1100 1700 / 1700 600 / 600 Balance -330 / -90 112.917 / 352.917 270 / 270 Weight 158 lb 9 oz 154 lb 9.6 oz 161 lb 6.4 oz Intake & Output 12/23/24 12/24/24 12/25/24 12/26/24 23:59 23:59 23:59 23:59 Intake Total 770 / 1010 1240 / 1240 Output Total 1100 / 1100 Balance -330 / -90 1240 / 1240 Weight 158 lb 9 oz 154 lb 9.6 oz Microbiology Reports for the Last 24 Hours: Microbiology 12/26/24 00:23 Sputum - Expectorated Sputum Gram Stain - Final 12/26/24 00:23 Sputum - Expectorated Sputum Sputum Culture - Final Microbiology 12/26/24 00:23 Sputum - Expectorated Sputum Gram Stain - Final Constitutional: Present moderate distress Head: Present normocephalic and atraumatic ENT: Present normal exam, normal oropharynx and mucous membranes moist Neck: Present normal inspection and full ROM Respiratory: Present prolonged expiratory phase, respiratory distress and able to speak in complete sentences; Absent wheezes Cardiac: Present S1/S2, Tachycardia and radial pulses present GI: Present soft and distention; Absent tenderness or guarding Skin: Present intact; Absent cyanosis or jaundice Neuro: Present alert, awake and oriented x 3 Extremities: Present normal inspection; Absent clubbing or cyanosis Psychiatric: Present normal affect and cooperative Assessment and Plan *Assessment and plan (1) Bilateral pneumonia: Status: Acute Qualifiers: Lung location: lower lobe of lung Pneumonia type: due to unspecified organism Qualified Code(s): J18.9 - Pneumonia, unspecified organism Category: Medical Code(s): J18.9 - Pneumonia, unspecified organism (2) Large pleural effusion: Status: Acute Category: Medical Code(s): J90 - Pleural effusion, not elsewhere classified (3) Acute respiratory failure with hypoxia: Status: Acute Category: Medical Code(s): J96.01 - Acute respiratory failure with hypoxia (4) Mediastinal lymphadenopathy: Status: Acute Category: Medical Code(s): R59.0 - Localized enlarged lymph nodes (5) Hilar lymphadenopathy: Status: Acute Category: Medical Code(s): R59.0 - Localized enlarged lymph nodes (6) Multiple lung nodules on CT: Status: Acute Category: Medical Code(s): R91.8 - Other nonspecific abnormal finding of lung field Plan Mr. Taylor is a 74-year-old male with a diagnosis of non-small cell lung cancer underwent chemoradiation presented today with worsening respiratory distress and pulmonary was called for further evaluation and management. Patient also receiving antibiotics for concern pneumonia by primary care physician as an outpatient basis. Cards a diagnosis of COPD, using Breyna inhaler at baseline, not using any oxygen supplementation. CTA PE protocol upon admission, no pulmonary embolism. Prominent right upper lobe airspace disease appeared to be new. Bilateral pleural effusions. Left effusion appears loculated, with adjacent airspace disease and likely radiation changes. Also noted to have worsening mediastinal hilar lymphadenopathy. New nodules also noted in right middle lobe, along with new left rib lesion concerning for worsening metastatic disease. The left effusion was present on his CT scan from April 2024 worsening. the left lower lobe mass and postobstructive Monia seen on his CT from April 2024 significantly improved. Interval update: No Significant fluid amenable to tap on yesterday's ultrasound. Appear with good response to diuretics. Left heart cath significant CAD. Sputum cultures normal respiratory naif. Plan: Wean antibiotics levofloxacin to complete a total of 7-day course Continue home inhalers including Breyna twice daily along with albuterol dose DuoNebs 4 times daily as needed Continue oxygen supplementation on as-needed basis to maintain O2 saturation goal of 90% and above Continue to evaluate for possible recurrence. Patient admits he had a PET scan done at an outside hospital October that did not show any recurrence. Will obtain imaging for further review. Volume optimization as per primary team and cardiology. # For the oncerning airspace disease lymphadenopathy patient would need a follow-up CT chest without contrast in 8 weeks to further deter mine/documentation of the resolution of the concerning findings. #Patient would also PFT walk testing on his subsequent visits.
--- NOTE | 2024-12-27 11:42 | EXP.DC.SUM ---
General Admission date:: 12/25/24 Discharge date: 12/27/24 HPI HPI HPI: Mr. Oviedo is a 74-year-old male who was diagnosed with non-small cell lung cancer earlier this year. Underwent chemo and radiation. Last course of chemo and radiation in October. He was evaluated by his PCP today for follow-up due to recent pneumonia. Having worsening shortness of breath. Was sent to the ER for evaluation for pneumonia due to recent completion of antibiotics and persistent dyspnea. On workup in the ER, patient was found to be dyspneic but was not hypoxic. White count normal. Chest imaging however concerning for decrease in size of his known lung cancer lesions on CTA of the chest. No pneumothorax, PE, pleural effusion, but does have bilateral airspace disease and what looks to be a new lytic lesion in her rib. Also concern for CHF on chest CT. BNP elevated at greater than 10,000. Medicine was consulted for admission and treatment of pneumonia, CHF exacerbation. He denies nausea or vomiting. Denies any fever. States that he has had some intermittent swelling of his legs over the past few weeks. Significant dyspnea with exertion. Denies significant shortness of breath at rest. Denies chest pain, confusion. Previously saw Dr. Horton in [place] for cardiology but has not seen him in several years since he retired. Last PET scan showed improvement in his lesions and next follow-up with oncology is in February. cardiac Hx OK at 34 in 1984, Cabg x 5 in 1993, 1 stent in 2003, AAA 2007. Hx of HFrEF in the 30s per his recollection Hospital Course Hospital Course Hospital Course: The patient can be discharged on the following cardiac medications: Aspirin 81 mg daily Lipitor 40 mg p.o. nightly Jardiance 10 mg daily Lasix 40 mg daily Toprol XL 25 mg daily Entresto 24/26 mg p.o. twice daily Spironolactone 25 mg daily Total time spent on discharge 32 minutes in counseling, documentation, chart review, and direct care with patient. Exam Data for Last 24 hours Vital signs and Labs for Last 24 Hours: Temp Pulse Resp BP Pulse Ox O2 Del Method O2 Flow Rate 94.4 F L 79 17 124/77 94 L Room Air 2 12/27/24 08:00 12/27/24 11:08 12/27/24 08:00 12/27/24 08:00 12/27/24 11:08 12/27/24 11:08 12/27/24 04:00 Laboratory Results - last 24 hr 12/26/24 04:37: Lactate Dehydrogenase 174 L 12/27/24 05:17: WBC 6.5, RBC 3.73 L, Hgb 11.1 L, Hct 33.5 L, MCV 89.8, MCH 29.8, MCHC 33.1, RDW 13.9, Plt Count 314, MPV 9.4, Neut % (Auto) 77.0, Lymph % (Auto) 7.8 L, [place] % (Auto) 12.7 H, Eos % (Auto) 1.5, Baso % (Auto) 0.8, Neut # (Auto) 5.0, Lymph # (Auto) 0.5 L, [place] # (Auto) 0.8, Eos # (Auto) 0.1, Baso # (Auto) 0.1, Total Counted 100, Neutrophils % (Manual) 88 H, Lymphocytes % (Manual) 5 L, Monocytes % (Manual) 7, Platelet Estimate Normal, RBC Morphology Normal, Sodium 137, Potassium 3.5, Chloride 98, Carbon Dioxide 32 H, Anion Gap 10.5, BUN 22 H, Creatinine 0.80, Estimated Creat Clear 66, Estimated GFR 94, Est GFR ( Amer) 114, Glucose 93, Calcium 8.3 L, Magnesium 1.6 D, Total Bilirubin 0.5 12/27/24 05:17: Total Bilirubin 0.5, Direct Bilirubin 0.0, Conjugated Bilirubin 0.0, Indirect Bilirubin 0.5, Unconjugated Bilirubin 0.5, AST 24 12/27/24 05:17: AST 23, ALT 14 12/27/24 05:17: ALT 12, Alkaline Phosphatase 67 12/27/24 05:17: Alkaline Phosphatase 65, Total Protein 5.8 L 12/27/24 05:17: Total Protein 5.3 L, Albumin 3.1 L 12/27/24 05:17: Albumin 2.9 L, Globulin 2.7, Albumin/Globulin Ratio 1.1, Triglycerides 64, Cholesterol 122 L, LDL Cholesterol Direct 84.01 L, VLDL Cholesterol 13, HDL Cholesterol 32 L, Cholesterol/HDL Ratio 3.8 H I & O for Last 24 hours: Intake & Output 12/24/24 12/25/24 12/26/2425 23:59 23:59 23:59 23:59 Intake Total 770 / 1010 1812.917 / 2052.917 920 / 920 Output Total 1100 / 1100 1700 / 1700 600 / 600 Balance -330 / -90 112.917 / 352.917 320 / 320 Weight 71.923 kg 70.125 kg 73.21 kg Microbiology Reports for the Last 24 Hours: Microbiology 12/26/24 00:23 Sputum - Expectorated Sputum Gram Stain - Final 12/26/24 00:23 Sputum - Expectorated Sputum Sputum Culture - Final Results Data Completed and Pending Labs on day of discharge: Labs from last 24 hours 12/27/24 12/27/24 12/27/24 05:17 05:17 05:17 WBC RBC Hgb Hct MCV MCH MCHC RDW Plt Count MPV Neut % (Auto) Lymph % (Auto) [place] % (Auto) Eos % (Auto) Baso % (Auto) Neut # (Auto) Lymph # (Auto) [place] # (Auto) Eos # (Auto) Baso # (Auto) Total Counted Neutrophils % (Manual) Lymphocytes % (Manual) Monocytes % (Manual) Platelet Estimate RBC Morphology Sodium Potassium Chloride Carbon Dioxide Anion Gap BUN Creatinine Estimated Creat Clear Estimated GFR Est GFR ( Amer) Glucose Calcium Magnesium Total Bilirubin Direct Bilirubin Conjugated Bilirubin Indirect Bilirubin Unconjugated Bilirubin AST ALT Alkaline Phosphatase 65 Lactate Dehydrogenase Total Protein 5.3 L 5.8 L Albumin 2.9 L 3.1 L Globulin 2.7 Albumin/Globulin Ratio 1.1 Triglycerides 64 Cholesterol 122 L LDL Cholesterol Direct 84.01 L VLDL Cholesterol 13 HDL Cholesterol 32 L Cholesterol/HDL Ratio 3.8 H 12/27/24 12/27/24 12/27/24 05:17 05:17 05:17 WBC RBC Hgb Hct MCV MCH MCHC RDW Plt Count MPV Neut % (Auto) Lymph % (Auto) [place] % (Auto) Eos % (Auto) Baso % (Auto) Neut # (Auto) Lymph # (Auto) [place] # (Auto) Eos # (Auto) Baso # (Auto) Total Counted Neutrophils % (Manual) Lymphocytes % (Manual) Monocytes % (Manual) Platelet Estimate RBC Morphology Sodium Potassium Chloride Carbon Dioxide Anion Gap BUN Creatinine Estimated Creat Clear Estimated GFR Est GFR ( Amer) Glucose Calcium Magnesium Total Bilirubin 0.5 Direct Bilirubin 0.0 Conjugated Bilirubin 0.0 Indirect Bilirubin 0.5 Unconjugated Bilirubin 0.5 AST 23 24 ALT 12 14 Alkaline Phosphatase 67 Lactate Dehydrogenase Total Protein Albumin Globulin Albumin/Globulin Ratio Triglycerides Cholesterol LDL Cholesterol Direct VLDL Cholesterol HDL Cholesterol Cholesterol/HDL Ratio 12/27/24 12/26/24 05:17 04:37 WBC 6.5 RBC 3.73 L Hgb 11.1 L Hct 33.5 L MCV 89.8 MCH 29.8 MCHC 33.1 RDW 13.9 Plt Count 314 MPV 9.4 Neut % (Auto) 77.0 Lymph % (Auto) 7.8 L [place] % (Auto) 12.7 H Eos % (Auto) 1.5 Baso % (Auto) 0.8 Neut # (Auto) 5.0 Lymph # (Auto) 0.5 L [place] # (Auto) 0.8 Eos # (Auto) 0.1 Baso # (Auto) 0.1 Total Counted 100 Neutrophils % (Manual) 88 H Lymphocytes % (Manual) 5 L Monocytes % (Manual) 7 Platelet Estimate Normal RBC Morphology Normal Sodium 137 Potassium 3.5 Chloride 98 Carbon Dioxide 32 H Anion Gap 10.5 BUN 22 H Creatinine 0.80 Estimated Creat Clear 66 Estimated GFR 94 Est GFR ( Amer) 114 Glucose 93 Calcium 8.3 L Magnesium 1.6 D Total Bilirubin 0.5 Direct Bilirubin Conjugated Bilirubin Indirect Bilirubin Unconjugated Bilirubin AST ALT Alkaline Phosphatase Lactate Dehydrogenase 174 L Total Protein Albumin Globulin Albumin/Globulin Ratio Triglycerides Cholesterol LDL Cholesterol Direct VLDL Cholesterol HDL Cholesterol Cholesterol/HDL Ratio DS: Diagnosis Discharge Diagnosis (1) Bilateral pneumonia: Status: Acute Code(s): J18.9 - Pneumonia, unspecified organism Qualifiers: Pneumonia type: due to unspecified organism Lung location: lower lobe of lung Qualified Code(s): J18.9 - Pneumonia, unspecified organism (2) Large pleural effusion: Status: Acute Code(s): J90 - Pleural effusion, not elsewhere classified (3) Acute respiratory failure with hypoxia: Status: Acute Code(s): J96.01 - Acute respiratory failure with hypoxia (4) Mediastinal lymphadenopathy: Status: Acute Code(s): R59.0 - Localized enlarged lymph nodes (5) Hilar lymphadenopathy: Status: Acute Code(s): R59.0 - Localized enlarged lymph nodes (6) Multiple lung nodules on CT: Status: Acute Code(s): R91.8 - Other nonspecific abnormal finding of lung field Meds Home Medications and Allergies Home Medications ?Medication ?Instructions ?Recorded ?Confirmed ?Type aspirin 81 mg tablet,delayed 81 mg PO DAILY 10/23/23 12/25/24 History release (Adult Aspirin Regimen) zolpidem 5 mg tablet 5 mg PO HSP PRN Insomnia 12/25/24 12/25/24 History atorvastatin 40 mg tablet 40 mg PO HS 30 days #30 tabs 12/27/24 Rx empagliflozin 10 mg tablet 10 mg PO DAILY 30 days #30 tabs 12/27/24 Rx (Jardiance) furosemide 40 mg tablet 40 mg PO DAILY 30 days #30 tabs 12/27/24 Rx metoprolol succinate 25 mg 25 mg PO DAILY 30 days #30 tabs 12/27/24 Rx tablet,extended release 24 hr sacubitril 24 mg-valsartan 26 mg 1 tab PO BID 30 days #60 tabs 12/27/24 Rx tablet (Entresto) spironolactone 25 mg tablet 25 mg PO DAILY 30 days #30 tabs 12/27/24 Rx New Prescriptions to Start Prescriptions: Lv Murrya empagliflozin [Jardiance] Lv Capellan furosemide Lv Capellan metoprolol succinate Lv Capellan sacubitril-valsartan [Entresto] Lv Capellan spironolactone Lv Capellan Allergies Allergy/AdvReac Type Severity Reaction Status Date / Time Penicillins Allergy Mild RASH Verified 12/25/24 08:26 Discharge Plan Disposition Patient Disposition: Home, Self-Care Condition: Fair Discharge Order Discharge Orders: Discharge Order (Routine); Ordered 12/27/24 Ordered By: Lv Capellan Follow up Plan Follow up with: Renan Rosas MD [Primary Care Provider, Medical] - Enter time for follow up Wenceslao Mcdaniels MD [Staff Physician, Cardiology] Cathy Celaya MD [Physician, Pulmonology] - Enter time for follow up Prescriptions/Medication Reconciliation: New furosemide 40 mg Tablet 40 mg PO DAILY 30 Days Qty: 30 0RF atorvastatin 40 mg Tablet 40 mg PO HS 30 Days Qty: 30 0RF spironolactone 25 mg Tablet 25 mg PO DAILY 30 Days Qty: 30 0RF metoprolol succinate 25 mg Tablet Extended Release 24 Hr 25 mg PO DAILY 30 Days Qty: 30 0RF Jardiance 10 mg Tablet 10 mg PO DAILY 30 Days Qty: 30 0RF sacubitril-valsartan [Entresto] 24-26 mg Tablet 1 tab PO BID 30 Days Qty: 60 0RF Continued aspirin [Adult Aspirin Regimen] 81 mg tablet,delayed release (DR/EC) 81 mg PO DAILY zolpidem 5 mg tablet 5 mg PO HSP PRN (Reason: Insomnia) Discontinued metoprolol succinate 50 mg tablet extended release 24 hr 50 mg PO DAILY Problem Reconciliation Problems Reviewed?: Yes Patient Discharge Instructions ACTIVITY: Continue current activity DIET: continue same diet Patient Instructions: Cardiac Catheterization, Surgical Site Infection, Moderate Sedation Print Language: Somali Providers Primary Care Provider: Renan Rosas Admit Provider: Lv Capellan Attending Provider: Lv Capellan
--- NOTE | 2024-12-30 10:51 | SW/DCPLANNER ---
Spoke with patient's on the phone. Patient's stated that he is doing well. Patient's stated that he is aware of his upcoming appointments. Patient's stated that he was able to get his new medicine picked up from the pharmacy. Patient stateds that he has no concerns or questions at this time. Kerwin Bailon
== END 2024-12-27 14:28 | disposition home or self-care (01) | DRG 280 ==
LOC: ER 13:51 → 2ND 14:09
PROVIDERS: Internal Medicine; Internal Medicine Pulmonary Disease; Nurse Practitioner Family; Physician Assistant; Admitting Provider Internal Medicine Adolescent Medicine; Emergency Provider Student in an Organized Health Care Education/Training Program; PCP Internal Medicine; Visit Provider Internal Medicine Adolescent Medicine
PROC: 4A023N7 Measurement of Cardiac Sampling and Pressure, Left Heart, Percutaneous Approach (ICD-10-PCS; CPT 93452; principal; 2024-12-26 13:00)
DX: I11.0 Hypertensive heart disease with heart failure (principal); I50.23 Acute on chronic systolic (congestive) heart failure; I21.A1 Myocardial infarction type 2; J18.9 Pneumonia, unspecified organism; J96.01 Acute respiratory failure with hypoxia; I25.810 Atherosclerosis of coronary artery bypass graft(s) without angina pectoris; J44.0 Chronic obstructive pulmonary disease with (acute) lower respiratory infection; C34.90 Malignant neoplasm of unspecified part of unspecified bronchus or lung; N13.8 Other obstructive and reflux uropathy; I25.5 Ischemic cardiomyopathy; I25.2 Old myocardial infarction; I25.10 Atherosclerotic heart disease of native coronary artery without angina pectoris; N40.1 Benign prostatic hyperplasia with lower urinary tract symptoms; E78.2 Mixed hyperlipidemia; F17.209 Nicotine dependence, unspecified, with unspecified nicotine-induced disorders; R59.0 Localized enlarged lymph nodes; Z86.79 Personal history of other diseases of the circulatory system; Z95.1 Presence of aortocoronary bypass graft; Z95.5 Presence of coronary angioplasty implant and graft; Z92.3 Personal history of irradiation; Z92.21 Personal history of antineoplastic chemotherapy; Z98.890 Other specified postprocedural states; Z88.0 Allergy status to penicillin; Z79.82 Long term (current) use of aspirin; Z79.899 Other long term (current) drug therapy
CPT/HCPCS: 36415; 71275; 76604; 80053; 80061; 80076; 82803; 83615; 83735; 83880; 84145; 84484; 85007; 85025; 85610; 87070; 87205; 87636; 89220; 93005; 93306; 94640; 99285; C1725; C1760; C1769; C1894; J0692; J1200; J1644; J1650; J1938; J2003; J2250; J2919; J3010; J3375; J3475; J7040; Q9957; Q9967

== ENCOUNTER 2025-01-27 12:30 | Outpatient (CLI) | payer MEDICARE, OTHER, SELFPAY ==
[2025-01-27 18:07] LABS: Anion Gap 13.1 mEq/L (5-15); Blood Urea Nitrogen 19 mg/dl (9-20); Calcium 9.1 mg/dl (8.4-10.2); Carbon Dioxide 28 mmol/L (22.0-30.0); Chloride 100 mmol/L (98-107); Creatinine,Serum 0.90 mg/dl (0.66-1.25); Estimated Glomerular Filt Rate 82 ml/min (>60); GFR (African American) 99 ML/MIN (>60); Glucose 84 mg/dl (74-100); Potassium 4.1 mmoL/L (3.5-5.1); Sodium 137 mmol/L (136-145)
== END 2025-01-27 23:59 ==
LOC: LAB.DROPOF 01-28 09:46
PROVIDERS: PCP Internal Medicine; Visit Provider Internal Medicine
DX: I11.0 Hypertensive heart disease with heart failure (principal); I50.23 Acute on chronic systolic (congestive) heart failure
CPT/HCPCS: 80048

== ENCOUNTER 2025-02-25 09:23 | Outpatient (CLI) | payer MEDICARE, OTHER, SELFPAY ==
--- OUTSIDE RECORDS SUMMARY | 2025-02-18 11:07 | XMS_ITS | Encounter Summary ---
Author Organization [employer] ([place], [place], [place], [place], [place]) Address [address] [place] [address] Care Team Providers Care Hospital Admissions Officer Name Role Phone Renan Rosas MD Primary Care Provider [phone] Guy Cook MD Unavailable [phone] Claire Ferguson MD Unavailable Dani Pham MD Unavailable [phone] Reason for Referral * CAT Scan (Routine) - Closed Specialty Diagnoses / Procedures Referred By Jonathan singh Referred To Contact Radiology Diagnoses Malignant neoplasm of lower lobe, left bronchus or lung (HCC) Procedures CT CHEST WITHOUT IV CONTRAST Dani Pham MD [address] [facility] [address] [place] [address] Phone: tel: fax: [facility] [address] [place] [address] Phone: tel: fax: Referral ID Status Reason Start Date Expiration Date Visits Re quested Visits Authorized [id number] Closed 02/17/2025 02/17/2026 1 1 Reason for Visit * CAT Scan (Routine) - Closed Specialty Diagnoses / Procedures Referred By Jonathan singh Referred To Contact Radiology Diagnoses Malignant neoplasm of lower lobe, left bronchus or lung (HCC) Procedures CT CHEST WITHOUT IV CONTRAST Dani Pham MD [address] [facility] [address] [place] [address] Phone: tel: fax: [facility] [address] [place] [address] Phone: tel: fax: Referral ID Status Reason Start Date Expiration Date Visits Re quested Visits Authorized [id number] Closed 02/17/2025 02/17/2026 1 1 Encounter Details Date Type Department Care Team (Latest Contact Info) Description 02/18/2025 11:07 AM EST - 02/18/2025 1:07 PM [facility] Hospital Encounter [facility] [address] [place] [address] Dani Pham MD [address] [facility] [address] [place] [address] Malignant neoplasm of lower lobe, left bronchus or lung (HCC) Discharge Disposition: Home or Self Care Social History Tobacco Use Types Packs/Day Years Used Date Smoking Tobacco: Every Day Cigarettes 1 57 Started: 1968 Smokeless Tobacco: Never Alcohol Use Standard Drinks/Week Comments Never 0 (1 standard drink = 0.6 oz pur e alcohol) Sex and Gender Information Value Date Recorded Sex Assigned at Not on file Legal Sex Male 11:40 AM CDT Gender Identity Not on file Sexual Orientation Not on file documented as of this encounter Medications at Time of Discharge albuterol 90 mcg/actuation inhaler Inhale by mouth every 6 (six) hours as needed for wheezing. aspirin 81 MG EC tablet Take 1 tablet (81 mg total) by mouth daily. atorvastatin (LIPITOR) 40 MG tablet Take 1 tablet (40 mg total) by mouth daily. 01/19/2025 budesonide-formo teroL (Symbicort) 160-4.5 mcg/actuation inhaler Inhale 2 puffs by mouth 2 (two) times daily Rinse mouth with water after each use. 7.2 g 6 08/15/2024 budesonide-glyco pyr-formoterol (Breztri Aerosphere) 160-9-4.8 mcg/actuation HFAA Inhale by mouth. furosemide (LASIX) 20 MG tablet Take 1 tablet (20 mg total) by mouth daily. 02/11/2025 HYDROcodone-acet aminophen (NORCO) 5-325 mg per tablet Take 1 tablet by mouth every 6 (six) hours as needed for pain. hyoscyamine (LEVSIN) 0.125 mg/5 mL elix elixir Take 5 mLs (125 mcg total) by mouth daily. Jardiance 10 mg tablet Take 1 tablet (10 mg total) by mouth daily. 01/20/2025 metoprolol succinate (TOPROL-XL) 50 MG 24 hr [...] if pain unrelieved 5min after 1st dose. sacubitriL-valsa rtan (ENTRESTO) 24-26 mg tablet Take 0.5 tablets by mouth Half a tablet. 01/21/2025 spironolactone (ALDACTONE) 25 MG tablet Take 1 tablet (25 mg total) by mouth 2 (two) times daily. 01/18/2025 zolpidem (AMBIEN) 5 MG tablet Take 1 tablet (5 mg total) by mouth every night as needed. 02/14/2025 documented as of this encounter Plan of Treatment Upcoming Encounters Date Type Department Care Team (Late st Contact Info) Description 03/03/2025 11:30 AM EST Appointment [facility] [address] [place] [address] Mayito Griffin MD [address] [place] [address] 03/17/2025 9:15 AM EST Office Visit [facility] [place] [address] [place] [address] Dani Pham MD [facility] [address] [place] [address] [place] [address] 05/20/2025 10:45 AM EDT Office Visit [facility] Pulm & Critical [facility] Medicine [address] [facility] [address] [place] [address] Sally Samuels MD [address] [facility] [address] [place] [address] 08/19/2025 11:00 AM EDT Appointment [facility] [address] [place] [address] Dani Pham MD [facility] [address] [place] [address] 08/19/2025 2:30 PM EDT Office Visit [facility] [place] [address] [place] [address] Dani Pham MD [address] [place] [address] [address] [place] [address] documented as of this encounter Procedures Procedure Name Priority Date/Time Associated Diagnosis Comments CT CHEST WITHOUT IV CONTRAST Routine 02/18/2025 11:34 AM EST Malignant neoplasm of lower lobe, left bronchus or lung (HCC) documented in this encounter Results * CT CHEST WITHOUT IV CONTRAST (02/18/2025 11:34 AM EST) Anatomical Region Laterality Modality Chest, Lung Computed Tomogra phy (CT) 02/18/2025 4:32 PM EST Impressions 02/18/2025 4:49 PM EST 1. Volume loss in the left upper lobe with left suprahilar peribronchial thickening which is likely related to postradiation change. 2. Expansile soft tissue mass in the anterior left fifth rib measuring 22 mm. This likely represents a metastatic lesion and in retrospect has increased from previous. Images reviewed, interpreted, and dictated by Dr. Chema Tena. Transcribed by Rach Durbin PA-C. Narrative 02/18/2025 4:[address] SCAN OF THE CHEST 02/18/2025 11:30 AM HISTORY: Follow-up lung cancer COMPARISON: PET/CT dated October 2024 PROCEDURE: Axial images were obtained from the lung apex to the mid abdomen by computed tomography. This study was performed with techniques to keep radiation doses as low as reasonably achievable, (ALARA). Individualized dose reduction techniques using automated exposure control or adjustment of mA and/or kV according to the patient size were employed. FINDINGS: CHEST: Study is limited secondary to lack of contrast. There is no axillary adenopathy. There is no hilar or mediastinal adenopathy. The heart is proper size. There is a small left pleural effusion which appears loculated. There is volume loss in the left upper lobe which has increased from previous. There is bronchial thickening. There is left suprahilar peribronchial thickening. Findings may be related to radiation therapy. The right lung and left lung base are well expanded. There is an expansile soft tissue mass within the anterior left fifth rib measuring 22 mm. In retrospect, this has increased in size and previously measured 5 mm. Limited images of the upper abdomen are unremarkable. Procedure Note Chema Tena MD - 02/18/2025 CT SCAN OF THE CHEST 02/18/2025 11:30 AM HISTORY: Follow-up lung cancer COMPARISON: PET/CT dated October 2024 PROCEDURE: Axial images were obtained from the lung apex to the mid abdomen by computed tomography. This study was performed with techniques to keep radiation doses as low as reasonably achievable, (ALARA). Individualized dose reduction techniques using automated exposure control or adjustment of mA and/or kV according to the patient size were employed. FINDINGS: CHEST: Study is limited secondary to lack of contrast. There is no axillary adenopathy. There is no hilar or mediastinal adenopathy. The heart is proper size. There is a small left pleural effusion which appears loculated. There is volume loss in the left upper lobe which has increased from previous. There is bronchial thickening. There is left suprahilar peribronchial thickening. Findings may be related to radiation therapy. The right lung and left lung base are well expanded. There is an expansile soft tissue mass within the anterior left fifth rib measuring 22 mm. In retrospect, this has increased in size and previously measured 5 mm. Limited images of the upper abdomen are unremarkable. IMPRESSION: 1. Volume loss in the left upper lobe with left suprahilar peribronchial thickening which is likely related to postradiation change. 2. Expansile soft tissue mass in the anterior left fifth rib measuring 22 mm. This likely represents a metastatic lesion and in retrospect has increased from previous. Images reviewed, interpreted, and dictated by Dr. Chema Tena. Transcribed by Rach Durbin PA-C. Dani Pham MD IM CT ORDERABLES Final Result documented in this encounter Visit Diagnoses Diagnosis Malignant neoplasm of lower lobe, left bronchus or lung (HCC) documented in this encounter Care Teams Hospital Admissions Officer Relationship Specialty Start Date End Date Renan Rosas MD [address] [place] [address] [place] [address] PCP - General General Internal Medicine 04/29/24 Guy Cook MD [address] [facility] [address] [place] [address] Surgeon Cardiothoracic Surgery 04/30/24 Claire Ferguson MD [address] [facility] [address] [place] [address] Consulting Physician Pulmonary Disease 05/16/24 Dani Pham MD [address] [facility] [address] [place] [address] Medical Oncologist Hematology and Oncology 05/16/24 documented as of this encounter
--- OUTSIDE RECORDS SUMMARY | 2025-02-18 13:08 | XMS_ITS | Encounter Summary ---
Author Organization [employer] ([place], [place], [place], [place], [place]) Address [address] [place] [address] Care Team Providers Care Collection Agent Name Role Phone Renan Rosas MD Primary Care Provider [phone] Guy Cook MD Unavailable [phone] Claire Ferguson MD Unavailable Dani Pham MD Unavailable [phone] Reason for Visit * Reason Comments Follow-up Encounter Details Date Type Department Care Team (Latest Contact Info) Description 02/18/2025 1:08 PM EST - 02/18/2025 11:59 PM [facility] Hospital Encounter [facility] [place] [address] [place] [address] Mayito Griffin MD [address] [place] [address] Malignant neoplasm of lower lobe, [...] Sign Reading Time Taken Comments Blood Pressure 93/60 02/18/2025 1:43 PM EST Pulse 61 02/18/2025 1:43 PM EST Temperature 36.6 C (97.9 F) 02/18/2025 1:43 PM EST Respiratory Rate 16 02/18/2025 1:43 PM EST Oxygen Saturation 99% 02/18/2025 1:43 PM EST Inhaled Oxygen Concentration - - Weight 69.5 kg (153 lb 3.2 oz) 02/18/2025 1:43 P M EST Height - - Body Mass Index 22.62 11/19/2024 10:33 AM EDT documented in this encounter Medications [...] mLs (125 mcg total) by mouth daily. ipratropium-albu teroL (DUO-NEB) 0.5 mg-3 mg(2.5 mg base)/3 mL nebulizer solution Inhale 3 mLs by nebulization every 6 (six) hours as needed for wheezing. Jardiance 10 mg tablet Take 1 tablet (10 mg total) by mouth daily. 01/20/2025 metoprolol succinate (TOPROL-XL) 50 MG 24 hr tablet Take 1 tablet (50 mg total) by mouth daily. nicotine (NICODERM CQ) 21 mg/[address] 1 patch on the skin daily. nitroglycerin (NITROSTAT) 0.4 MG SL tablet [...] needed. 02/14/2025 documented as of this encounter Progress Notes * Mayito Griffin MD - 02/18/2025 1:30 PM EST Radiation Oncology Follow Up Evaluation Patient Name: Filemon Oviedo : 1950 Date: 02/18/2025 Referring Physicians: Patient Care Team: Renan Rosas [...] Present Illness: Mr. Oviedo is a pleasant 75 y.o. year old male. He was initially [...] He presents today for routine follow-up after CT. Interval History: Symptomatically, Mr. Oviedo is doing well. After his last PET/CT he developed pneumonia and was hospitalized. He had a pleural effusion that required Lasix but has significantly improved. His breathing is more or less at baseline. He also has had a history of cardiac issues and was found to have congestive heart failure during his last admission. Allergies: Allergies Allergen Reactions Penicillin Medications: Current Outpatient Medications: albuterol 90 mcg/actuation inhaler, Inhale by mouth every 6 (six) hours as needed for wheezing., Disp: , Rfl: aspirin 81 MG EC tablet, Take 1 tablet (81 mg total) by mouth daily., Disp: , Rfl: atorvastatin (LIPITOR) 40 MG tablet, Take 1 tablet (40 mg total) by mouth daily., Disp: , Rfl: budesonide-formoteroL (Symbicort) 160-4.5 mcg/actuation inhaler, Inhale 2 puffs by mouth 2 (two) times daily Rinse mouth with water after each use., Disp: 7.2 g, Rfl: 6 skyqnrpulb-gnhpgbqh-cuvmnfaccl (Breztri Aerosphere) 160-9-4.8 mcg/actuation HFAA, Inhale by mouth.,Disp: , Rfl: furosemide (LASIX) 20 MG tablet, Take 1 tablet (20 mg total) by mouth daily., Disp: , Rfl: hyoscyamine (LEVSIN) 0.125 mg/5 mL elix elixir, Take 5 mLs (125 mcg total) by mouth daily. (Patienttaking differently: Take 5 mLs (125 mcg total) by mouth every 4 (four) hours as needed.), Disp: , Rfl: Jardiance 10 mg tablet, Take 1 tablet (10 mg total) by mouth daily., Disp: , Rfl: metoprolol succinate (TOPROL-XL) 50 MG 24 hr [...] 5min after 1st dose., Disp: , Rfl: sacubitriL-valsartan (ENTRESTO) 24-26 mg tablet, Take 0.5 tablets by mouth Half a tablet., Disp: , Rfl: spironolactone (ALDACTONE) 25 MG tablet, Take 1 tablet (25 mg total) by mouth 2 (two) times daily.,Disp: , Rfl: zolpidem (AMBIEN) 5 MG tablet, Take 1 tablet (5 mg total) by mouth every night as needed., Disp: , Rfl: HYDROcodone-acetaminophen (NORCO) 5-325 mg per tablet, Take 1 tablet by mouth every 6 (six) hours as needed for pain. (Patient not taking: Reported on 02/18/2025.), Disp: , Rfl: simvastatin (ZOCOR) 10 MG tablet, Take 1 tablet (10 mg total) by mouth nightly. (Patient not taking: Reported on 02/18/2025.), Disp: , Rfl: Labs: No visits with [...] 26 12 - 78 U/L Final Imaging: CT chest from earlier today appears to demonstrate some infectious/inflammatory changes in the leftlung with surrounding pleural effusion but no evidence of recurrent or progressive disease. The area of previously noted residual hypermetabolism appears stable without any additional invasive component noted along the chest wall. These images were personally reviewed and interpreted but the official report is not yet available. Pathology: No new pathology for review. Performance Status: ECOG Performance Status: Restricted in physically strenuous activity but ambulatory and able to carry out work of a light or sedentary nature, e.g., light house work, office work Physical Exam: Vitals: 02/18/25 1343 BP: 93/60 BP Location: Right arm Patient Position: Sitting Cuff Size: Adult Pulse: 61 Resp: 16 Temp: 97.9 ??F (36.6 ??C) SpO2: 99% Weight: 69.5 kg (153 lb 3.2 oz) Pain Assessment Pain Score: 0-No pain Physical [...] normal. Assessment: Mr. Oviedo is a pleasant 75 y.o. year old male. 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 He completed 1 cycle of adjuvant immunotherapy but opted to discontinue secondary to toxicity. He is currently on observation. Oncologically, he is doing well with no obvious clinical or radiographic evidence of disease progression or recurrence. He has some infectious/inflammatory changes in the left lung which do not appear to be neoplastic. The area along the medial posterior chest wall of residual hypermetabolism appears stable although I will follow-up the official report to confirm. I will see him back with his next surveillance imaging or sooner as needed. A total of 20 minutes was spent at today's visit reviewing patient records, in [id number] consultation with the patient, and in coordination and documentation of care. Plan of Care for Pain: Patient has no complaints of pain [employer] SALES CONSULTANT documented in this encounter Plan of Treatment Upcoming Encounters Date Type Department Care Team (Late st Contact Info) Description 03/03/2025 11:30 AM EST Appointment [facility] [place] [place] [address] Mayito Griffin MD [address] [place] [address] 03/17/2025 9:15 AM EST Office Visit [facility] [place] [address] [place] [address] Dani Pham MD [facility] [address] [place] [address] 05/20/2025 10:45 AM EDT Office Visit [facility]m [facility] Critical [facility] Medicine [address] [facility] [address] [place] [address] Sally Samuels MD [address] [facility] [address] [place] [address] 08/19/2025 11:00 AM EDT Appointment [facility] [address] [place] [address] Dani Pham MD [address] [place] [address] [address] [place] [address] 08/19/2025 2:30 PM EDT Office Visit [facility] [place] [address] [place] [address] Dani Pham MD [facility] [address] [place] [address] documented as of this encounter Visit Diagnoses Diagnosis Malignant neoplasm of lower lobe, left bronchus or lung (HCC)- Primary documented in this encounter Care Teams Collection Agent Relationship Specialty Start Date End Date Renan Rosas MD [address] [place] [address] [place] [address] PCP - General General Internal Medicine 04/29/24 Guy Cook MD [address] [facility] [address] [place], [place] [id number] Surgeon Cardiothoracic Surgery 04/30/24 Claire Ferguson MD [address] [facility] [address] [place], [place] [address] Consulting Physician Pulmonary Disease 05/16/24 Dani Pham MD [address] [facility] [address] [place] [address] Medical Oncologist Hematology and Oncology 05/16/24 documented as of this encounter
--- OUTSIDE RECORDS SUMMARY | 2025-02-18 14:15 | XMS_ITS | Encounter Summary ---
Author Organization [employer] ([place], [place], [place], [place], [place]) Address [address] [place] [address] Care Team Providers Care Electrician Control Equipment Name Role Phone Renan Rosas MD Primary Care Provider [phone] Guy Cook MD Unavailable [phone] Claire Ferguson MD Unavailable Dani Pham MD Unavailable [phone] Reason for Referral * CAT Scan (Emergency) - New Request Specialty Diagnoses / Procedures Referred By Jonathan singh Referred To Contact Radiology Diagnoses Malignant neoplasm of lower lobe, left bronchus or lung (HCC) Procedures CT CHEST WITHOUT IV CONTRAST Dani Pham MD [address] [place] [address] Phone: tel: fax: Referral ID Status Reason Start Date Expiration Date V isits Requested Visits Authorized [id number] New Request 08/19/2025 08/19/2026 1 1 Reason for Visit * Reason Comments Follow-up Lung Cancer Encounter Details Date Type Department Care Team (Late st Contact Info) Description 02/18/2025 2:15 PM EST [facility] [address] [place] [address] Dani Pham MD [address] [facility] [address] [place] [address] Malignant neoplasm of lower lobe, left bronchus or lung (HCC) Social History Tobacco Use Types Packs/Day Years Used Date Smoking Tobacco: Every Day Cigarettes 1 57 Started: 1969 Smokeless Tobacco: Never Tobacco Cessation:Ready to Q uit: Not Asked; Counseling Given: Not Answered Alcohol Use Standard Drinks/Week Comments Never 0 (1 standard drink = 0.6 oz pur e alcohol) Sex and Gender Information Value Date Recorded Sex Assigned at Not on file Legal Sex Male 11:40 AM CDT Gender Identity Not on file Sexual Orientation Not on file documented as of this encounter Last Filed Vital Signs Vital Sign Reading Time Taken Comments Blood Pressure 111/58 02/18/2025 2:48 PM EST Pulse 71 02/18/2025 2:48 PM EST Temperature 36.6 C (97.9 F) 02/18/2025 2:48 PM EST Respiratory Rate 18 02/18/2025 2:48 PM EST Oxygen Saturation 94% 02/18/2025 2:48 PM EST Inhaled Oxygen Concentration - - Weight 68.1 kg (150 lb 1.6 oz) 02/18/2025 2:48 P M EST Height 175.3 cm (5' 9 ) 02/18/2025 2:48 PM EST Body Mass Index 22.17 02/18/2025 2:48 PM EST documented in this encounter Progress Notes * Dani Pham MD - 02/18/2025 2:15 PM EST Chief Complaint: History of Present Illness: Filemon Oviedo is a 75 y.o. male who presents today for follow up of lung cancer. He is 1 year out from his diagnosis. He has had no areas of bone pain. He apparently was hospitalized in December had heart failure and was treated for that. Apparently his ejection fraction is only 15%. He has had no other new concerns. He has lost some weight Past Medical History: Diagnosis Date Back pain COPD (chronic obstructive pulmonary disease) (HCC) Coronary artery disease Hyperlipidemia Hypertension Kidney stone Myocardial infarction (HCC) Times 3 PVD (peripheral vascular disease) (HCC) Skin cancer 06/15/2022 Squamous Cell Carcinoma/ Mole removal Left Faith Past Surgical History: Procedure Laterality Date ABDOMINAL AORTIC ANEURYSM REPAIR 07/05/[address] Bal Toribio @ [facility] BRONCHOSCOPY,BIOPSY N/A 05/08/2024 Procedure: EBUS BRONCHOSCOPY, WITH BIOPSY; Surgeon: Sally Samuels MD; Location: [facility]; Service: Pulmonary/Critical Care; Laterality: N/A; BRONCHOSCOPY,BRUSHINGS 05/08/2024 Procedure: BRONCHOSCOPY, WITH BRUSH BIOPSY; Surgeon: Sally Samuels MD; Location: [facility]; Service: Pulmonary/Critical Care;; BRONCHOSCOPY,LAVAGE 05/08/2024 Procedure: BRONCHOSCOPY, WITH BRONCHOALVEOLAR LAVAGE; Surgeon: Sally Samuels MD; Location: [facility];Service: Pulmonary/Critical Care;; BRONCHOSCOPY,TRANSBRONCHIAL NEEDLE ASPIRATION BIOPSY 05/08/2024 Procedure: BRONCHOSCOPY, WITH TRANSBRONCHIAL NEEDLE ASPIRATION BIOPSY; Surgeon: Sally Samuels MD; Location: [facility]; Service: Pulmonary/Critical Care;; CORONARY ARTERY BYPASS GRAFT Coronary Artery Stent Placement SKIN CANCER EXCISION Left 06/15/2022 Left Faith/ Squamous Cell Carcinoma Cancer History: Oncology History Malignant neoplasm of lower lobe, left bronchus or lung (HCC) 05/27/2024 Initial Diagnosis Squamous cell lung cancer (HCC) 05/2024 A. Left lower lobe cancer with hilar involvement B. Taxol and carboplatin X 6 weeks, low dose with radiation 06/2024- C. No surgery due to poor PFT, pneumonectomy and patient's choice. D. Durvalumab 08/2024 X 1. Stopped secondary to side effects 05/30/2024 - 09/02/2024 Radiation Therapy The patient saw No care cylinder steamer to display for radiation treatment. This is the current list ofradiation treatment: Radiation Therapy Treatment Details (05/30/2024 - 09/02/2024) No site specified Technique: VMAT Goal: Curative Planned Treatment Start Date: No planned start date specified Radiation Treatments No radiation treatments to show. (Treatments may have been administered in another system.) 06/10/2024 - 07/15/2024 Chemotherapy Treatment Summary Treatment goal Curative Plan Name [facility] Lung NSCLC - PACLItaxel + CARBOplatin (+ XRT) days 1,8,15,22,29, and 36 Status Inactive Start Date 06/10/2024 End Date 07/15/2024 Provider Dani Pham MD Chemotherapy CARBOplatin (PARAPLATIN) 190 mg in sodium chloride 0.9 % (NS) 250 mL chemo infusion, 194 mg, intravenous, Once, 1 of 1 cycle Dose modification: 190 mg (original dose 194 mg, Cycle 1) Administration: 190 mg (06/10/2024), 190 mg (06/17/2024), 190 mg (06/24/2024), 190 mg (07/01/2024), 190 mg (07/08/2024), 170 mg (07/15/2024) PACLitaxeL (TAXOL) 99 mg in sodium chloride 0.9% (NS) non-DEHP 500 mL chemo infusion, 50 mg/m2 = 99mg, intravenous, Once, 1 of 1 cycle Administration: 99 mg (06/10/2024), 99 mg (06/17/2024), 99 mg (06/24/2024), 99 mg (07/01/2024), 99 mg (07/08/2024), 99 mg (07/15/2024) 08/12/2024 - Chemotherapy Treatment Summary Treatment goal Curative Plan Name [facility] Lung NSCLC, SCLC - durvalumab (Imfinzi) 1500 mg IV every 28 days (patients greater than or equal to 30 kg) Status Active Start Date 08/12/2024 End Date 06/16/2025 (Planned) Provider Dani Pham MD Chemotherapy [No matching medication found in this treatment plan] Allergies: Penicillin Medications: Current Outpatient Medications on File Prior to Visit Medication Sig Dispense Refill albuterol 90 mcg/actuation inhaler Inhale by mouth every 6 (six) hours as needed for wheezing. aspirin 81 MG EC tablet Take 1 tablet (81 mg total) by mouth daily. budesonide-formoteroL (Symbicort) 160-4.5 mcg/actuation inhaler Inhale 2 puffs by mouth 2 (two) times daily Rinse mouth with water after each use. 7.2 g 6 filmcdeijo-acnxoset-rrfgwkteqz (Breztri Aerosphere) 160-9-4.8 mcg/actuation HFAA Inhale by mouth. HYDROcodone-acetaminophen (NORCO) 5-325 mg per tablet Take 1 tablet by mouth every 6 (six) hours asneeded for pain. hyoscyamine (LEVSIN) 0.125 mg/5 mL elix elixir Take 5 mLs (125 mcg total) by mouth daily. ipratropium-albuteroL (DUO-NEB) 0.5 mg-3 mg(2.5 mg base)/3 mL nebulizer solution Inhale 3 mLs by nebulization every 6 (six) hours as needed for wheezing. metoprolol succinate (TOPROL-XL) 50 MG 24 hr [...] if pain unrelieved 5min after 1st dose. [DISCONTINUED] simvastatin (ZOCOR) 10 MG tablet Take 1 tablet (10 mg total) by mouth nightly. (Patient not taking: Reported on 02/18/2025.) No current facility-administered medications on file prior to visit. Review of Systems: Review of Systems All other systems reviewed and are negative. Vitals: Vitals: 02/18/25 1448 BP: 111/58 Pulse: 71 Resp: 18 Temp: 97.9 ??F (36.6 ??C) SpO2: 94% Weight: 68.1 kg (150 lb 1.6 oz) Height: 1.753 m (5' 9 ) Physical Exam: Physical Exam Vitals reviewed. Constitutional: Appearance: Normal appearance. HENT: Head: Normocephalic and atraumatic. Mouth/Throat: Mouth: Mucous membranes are moist. Pharynx: Oropharynx is clear. Eyes: Extraocular Movements: Extraocular movements intact. Conjunctiva/sclera: Conjunctivae normal. Pupils: Pupils are equal, round, and reactive to light. Neck: Comments: No cervical supraclavicular or axillary adenopathy Cardiovascular: Rate and Rhythm: Normal rate and regular rhythm. Pulses: Normal pulses. Heart sounds: Normal heart sounds. Pulmonary: Effort: Pulmonary effort is normal. Breath sounds: Wheezing present. Comments: No dullness to percussion in the lung bases bilaterally Abdominal: General: Abdomen is flat. Bowel sounds are normal. Palpations: Abdomen is soft. Comments: No hepatomegaly below the right costal margin Musculoskeletal: General: Normal range of motion. Cervical back: Normal range of motion and neck supple. Comments: No reproducible pain even with palpation of the rib cage Neurological: General: No focal deficit present. Mental Status: He is alert. Mental status is at baseline. Comments: No deficits Relevant Results: No visits with results within 21 Day(s) from this visit. Latest known visit with [...] 09/09/2024 23 5 - 37 U/L [employer] has become aware of sulfasalazine and sulfapyridine drug interference in the assays ALT, AST, T4, CKMB, glucose, and ammonia. The probability of misinterpretation of results for the assays is remote and would be limited to scenarios where a patient has taken the drug and had a blood sample drawn before clearance of the drug to a level that does not interfere with laboratory testing. Venipuncture should occur prior to administration of the drug. ALT 09/09/2024 26 12 - 78 U/L [employer] has become aware of sulfasalazine and sulfapyridine drug interference in the assays ALT, AST, T4, CKMB, glucose, and ammonia. The probability of misinterpretation of results for the assays is remote and would be limited to scenarios where a patient has taken the drug and had a blood sample drawn before clearance of the drug to a level that does not interfere with laboratory testing. Venipuncture should occur prior to administration of the drug. CT CHEST WITHOUT IV CONTRAST Result Date: 02/18/2025 CT SCAN OF THE CHEST 02/18/2025 11:30 AM HISTORY: Follow-up lung cancer COMPARISON: PET/CT dated October 2024 PROCEDURE: Axial images were obtained from the lung apex to the mid abdomen by computed tomography. This study was performed with techniques to keep radiation doses as low as reasonably achiev able, (ALARA). Individualized dose reduction techniques using automated [...] images of the upper abdomen are unremarkable. 1. Volume loss in the left upper lobe with left suprahilar peribronchial thickening which is likelyrelated to postradiation change. 2. Expansile soft tissue mass in the anterior left fifth rib measuring 22 mm. This likely represents a metastatic lesion and in retrospect has increased from previous. Images reviewed, interpreted, and dictated by Dr. Chema Tena. Transcribed by Rach Durbin PA-C. Cancer Staging Malignant neoplasm of lower lobe, left bronchus or lung (HCC) Staging form: Lung, AJCC V9 - Clinical stage from 05/16/2024: Stage IIB (cT3, cN0, cM0) - Unsigned Plan: His CT scan had not been read at the time of his visit even though we waited quite a while. In the end it was read as a new lesion in the fifth rib on the left. I will call the patient and/or his and we will make plans for possible PET scan if this represents the only abnormality of course shewill have radiation. I doubt that he would consider or be in shape for consideration of chemotherapy. I have answered their questions Renan Rosas MD OLOGY SUPERVISOR documented in this encounter Plan of Treatment Upcoming Encounters Date Type Department Care Team (Late st Contact Info) Description 03/03/2025 11:30 AM EST Appointment [facility] [address] [place] [address] Mayito Griffin MD [address] [facility] [address] [place] [address] 03/17/2025 9:15 AM EST Office Visit [facility] - [address] [place] [address] Dani Pham MD [address] [place] [address] [place] [address] 05/20/2025 10:45 AM EDT Office Visit [facility] [address] [place] [address] Sally Samuels MD [address] [place] [address] 08/19/2025 11:00 AM EDT Appointment [facility] [address] [place] [address] Dani Pham MD [address] [place] [address] [address] [place] [address] 08/19/2025 2:30 PM EDT Office Visit [facility] - [place] [address] [place] [id number] Dani Pham MD [address] [facility] [address] [place] [address] Scheduled Orders Name Type Priority Associated Diagnoses Orde r Schedule CT CHEST WITHOUT IV CONTRAST Imaging STAT Malignant neoplasm of lower lobe, left bronchus or lung (HCC) Expected: 08/19/2025, Expires: 03/21/2026 documented as of this encounter Visit Diagnoses Diagnosis Malignant neoplasm of lower lobe, left bronchus or lung (HCC) documented in this encounter Care Teams Electrician Control Equipment Relationship Specialty Start Date End Date Renan Rosas MD [address] [facility] [address] [place] [address] PCP - General General Internal Medicine 04/29/24 Guy Cook MD [address] [facility] [address] [place] [id number] Surgeon Cardiothoracic Surgery 04/30/24 Claire Ferguson MD [address] [facility] [address] [place], [place] [id number] Consulting Physician Pulmonary Disease 05/16/24 Dani Pham MD [address] [facility] [address] [place] [address] Medical Oncologist Hematology and Oncology 05/16/24 documented as of this encounter
--- OUTSIDE RECORDS SUMMARY | 2025-02-24 10:11 | XMS_ITS | Encounter Summary ---
Author Organization [employer] ([place], [place], [place], [place], [place]) Address [address] [place] [address] Care Team Providers Care Director Of Security Name Role Phone Renan Rosas MD Primary Care Provider Guy Cook MD Unavailable [phone] Claire Ferguson MD Unavailable Dani Pham MD Unavailable [phone] Reason for Referral * CAT Scan (Emergency) - Closed Specialty Diagnoses / Procedures Referred By Jonathan singh Referred To Contact Radiology Diagnoses Malignant neoplasm of lower lobe, left bronchus or lung (HCC) Procedures PET/CT Skull Base-Mid Thigh (Whole Body) Dani Pham MD [address] [facility] [address] [place] [address] Phone: tel: fax: [facility] PET CT - [address] [place] [address] Phone: tel: fax: Referral ID Status Reason Start Date Expiration Date Visits Re quested Visits Authorized [id number] Closed 02/19/2025 02/19/2026 1 1 Reason for Visit * CAT Scan (Emergency) - Closed Specialty Diagnoses / Procedures Referred By Jonathan singh Referred To Contact Radiology Diagnoses Malignant neoplasm of lower lobe, left bronchus or lung (HCC) Procedures PET/CT Skull Base-Mid Thigh (Whole Body) Dani Pham MD [address] [place] [address] Phone: tel: fax: [facility] PET CT - [email or web address] [place] [address] Phone: tel: fax: Referral ID Status Reason Start Date Expiration Date Visits Re quested Visits Authorized [id number] Closed 02/19/2025 02/19/2026 1 1 Encounter Details Date Type Department Care Team (Latest Contact Info) Description 02/24/2025 10:11 AM EST - 02/24/2025 11:59 PM EST Hospital Encounter [facility] PET CT - The car easily [employer] [address] [place] [address] Dani Pham MD [address] [place] [address] Malignant neoplasm of lower lobe, left [...] Info) Description 03/03/2025 11:30 AM EST Appointment [facility] [address] [facility] [address] [address] [place] [address] Mayito Griffin MD [address] [place] [address] 03/17/2025 9:15 AM EST Office Visit [facility] - [place] [address] [place] [address] Dani Pham MD [address] [place] [address] [place] [address] 05/20/2025 10:45 AM EDT Office Visit [facility] Medicine [address] [facility] [address] [place] [phone] [place] [address] [place] [address] 08/19/2025 11:00 AM EDT Appointment [facility] Imaging [address] [place] [address] Dani Pham MD [address] [place] [address] [place] [address] 08/19/2025 2:30 PM EDT Office Visit [facility] - [place] [address] [place] [address] Dani Pham MD [address] [place] [address] [address] [place] [address] documented as of this encounter Procedures Procedure Name Priority Date/Time Associated Diagnosis Comments P.E.T./CT SKULL BASE TO MID-THIGH STAT 02/24/2025 12:32 PM EST Malignant neoplasm of lower lobe, left bronchus or lung (HCC) documented in this encounter Results * PET/CT Skull Base-Mid Thigh (Whole Body) (02/24/2025 12:32 PM EST) Anatomical Region Laterality Modality Positron Emissio n Tomography (PET) 02/24/2025 2:14 PM EST Impressions 02/24/2025 4:38 PM EST Progression of hypermetabolic airspace disease in the posterior medial left lung, recurrent disease a concern. New T5 vertebral body lesion as well as increased left fifth rib lesion most consistent with progression of bone metastases. Worsening perihilar opacity on the left, could be treatment related but residual disease is not excluded. Images reviewed, interpreted, and dictated by Dr. Radha Coates. Transcribed by Rosanna Gordon PA-C. Narrative 02/24/2025 4:38 PM EST PROCEDURE: PET/CT IMAGING, SKULL BASE TO MID THIGH INDICATION: Lung cancer restaging. TECHNIQUE: 15.8 mCi of 18-FDG was injected intravenously with a fasting blood glucose of 87 mg/dl. PET/CT images were obtained from skull base to mid thigh. COMPARISON: Chest CT dated February 18, 2025, PET/CT dated October 21, 2024 FINDINGS: There is no FDG avid cervical lymphadenopathy. There is new hypermetabolism between the posterior margin of the left main pulmonary artery and the anterior margin of the descending thoracic aorta with a maximum SUV of 4.2. On CT there may be subtle abnormal soft tissue at this location. There is no additional hypermetabolic thoracic lymphadenopathy. The left perihilar airspace opacity is mildly avid and worse compared to prior. The maximum SUV is 3.8. Findings could be related to radiation pneumonitis. Progression of malignancy is difficult to exclude. There is a subpleural mixed density opacity in the posterior left upper lobe that is somewhat rounded and also FDG avid. This has a maximum SUV of 4.2 and appears similar to prior exam. There is hypermetabolism in the medial aspect of the left lower lobe that has worsened. This has a maximum SUV now 8.3 and was previous of 5.2. The liver, spleen, renal collecting systems, and bladder demonstrate expected FDG uptake. There is no suprarenal hypermetabolism to suggest adrenal metastasis. GI uptake is normal. There is no hypermetabolic abdominal or pelvic lymphadenopathy. There is a hypermetabolic expansile lesion involving the anterior left fifth rib with a maximum SUV of 14.3. In retrospect, there is a very small lytic lesion at this location on the prior exam. There is a new lytic lesion involving the left aspect of the T5 vertebral body with a maximum SUV of 12.2. There is no additional hypermetabolic bone lesion. Procedure Note Radha Coates MD - 02/24/2025 PROCEDURE: PET/CT IMAGING, SKULL BASE TO MID THIGH INDICATION: Lung cancer restaging. TECHNIQUE: 15.8 mCi of 18-FDG was injected intravenously with a fasting blood glucose of 87 mg/dl. PET/CT images were obtained from skull base to mid thigh. COMPARISON: Chest CT dated February 18, 2025, PET/CT dated October 21, 2024 FINDINGS: There is no FDG avid cervical lymphadenopathy. There is new hypermetabolism between the posterior margin of the left main pulmonary artery and the anterior margin of the descending thoracic aorta with a maximum SUV of 4.2. On CT there may be subtle abnormal soft tissue at this location. There is no additional hypermetabolic thoracic lymphadenopathy. The left perihilar airspace opacity is mildly avid and worse compared to prior. The maximum SUV is 3.8. Findings could be related to radiation pneumonitis. Progression of malignancy is difficult to exclude. There is a subpleural mixed density opacity in the posterior left upper lobe that is somewhat rounded and also FDG avid. This has a maximum SUV of 4.2 and appears similar to prior exam. There is hypermetabolism in the medial aspect of the left lower lobe that has worsened. This has a maximum SUV now 8.3 and was previous of 5.2. The liver, spleen, renal collecting systems, and bladder demonstrate expected FDG uptake. There is no suprarenal hypermetabolism to suggest adrenal metastasis. GI uptake is normal. There is no hypermetabolic abdominal or pelvic lymphadenopathy. There is a hypermetabolic expansile lesion involving the anterior left fifth rib with a maximum SUV of 14.3. In retrospect, there is a very small lytic lesion at this location on the prior exam. There is a new lytic lesion involving the left aspect of the T5 vertebral body with a maximum SUV of 12.2. There is no additional hypermetabolic bone lesion. IMPRESSION: Progression of hypermetabolic airspace disease in the posterior medial left lung, recurrent disease a concern. New T5 vertebral body lesion as well as increased left fifth rib lesion most consistent with progression of bone metastases. Worsening perihilar opacity on the left, could be treatment related but residual disease is not excluded. Images reviewed, interpreted, and dictated by Dr. Radha Coates. Transcribed by Rosanna Gordon PA-C. Dani Pham MD IMG CT ORDERABLES Final Result documented in this encounter Visit Diagnoses Diagnosis Malignant neoplasm of lower lobe, left bronchus or lung (HCC) documented in this encounter Care Teams Director Of Security Relationship Specialty Start Date End Date Renan Rosas MD [address] [place] [address] [place] [address] PCP - General General Internal Medicine 04/29/24 Guy Cook MD [address] [facility] [address] [place], [place] [id number] Surgeon Cardiothoracic Surgery 04/30/24 Claire Ferguson MD [address] [facility] [address] [place] [address] Consulting Physician Pulmonary Disease 05/16/24 Dani Pham MD [address] [facility] [address] [place] [address] Medical Oncologist Hematology and Oncology 05/16/24 documented as of this encounter
--- OUTSIDE RECORDS SUMMARY | 2025-02-24 15:15 | XMS_ITS | Encounter Summary ---
Author Organization [employer] ([place], [place], [place], [place], [place]) Address [address] [place] [address] Care Team Providers Care General Accounting Clerk Name Role Phone Renan Rosas MD Primary Care Provider [phone] Guy Cook MD Unavailable [phone] Claire Ferguson MD Unavailable Dani Pham MD Unavailable [phone] Reason for Referral * Consultation (Routine) - Authorized Specialty Diagnoses / Procedures Referred By Jonathan singh Referred To Contact Radiation Oncology Diagnoses Malignant neoplasm of lower lobe, left bronchus or lung (HCC) Dani Pham MD [address] [place] [address] [address] [place] [address] Phone: tel: fax: [facility] - [address] [place] [address] Phone: tel: fax: Referral ID Status Reason Start Date Expiration Date Visits Requested Visits Authorized [id number] Authorized Specialty Services Required 5 02/24/2026 1 1 Reason for Visit * Reason Comments Follow-up Lung Cancer Encounter Details Date Type Department Care Team (Late st Contact Info) Description 02/24/2025 3:15 PM EST Office Visit [facility] - [place] [address] [place] [address] Dani Pham MD [address] [place] [address] Malignant neoplasm of lower lobe, left bronchus or lung (HCC) (Primary Dx) Social History Tobacco Use Types Packs/Day Years [...] Sign Reading Time Taken Comments Blood Pressure 85/53 02/24/2025 3:05 PM EST Pulse 74 02/24/2025 3:05 PM EST Temperature 36.6 C (97.9 F) 02/24/2025 3:05 PM EST Respiratory Rate 18 02/24/2025 3:05 PM EST Oxygen Saturation 96% 02/24/2025 3:05 PM EST Inhaled Oxygen Concentration - - Weight 72.4 kg (159 lb 11.2 oz) 02/24/2025 3:05 PM EST Height 175.3 cm (5' 9 ) 02/24/2025 3:05 PM EST Body Mass Index 23.58 02/24/2025 3:05 PM EST documented in this encounter Progress Notes * Dani Pham MD - 02/24/2025 3:15 PM EST Chief Complaint: History of Present Illness: Filemon Oviedo is a 75 y.o. male who presents today for follow up of lung cancer. He has had some pain in the left side of his chest since I met him. We did a CAT scan the other day and it showed a an expansile lesion in the fifth rib. We did a PET scan today to determine disease status. He has had no other new concerns Past Medical History: Diagnosis Date Back pain COPD (chronic obstructive pulmonary disease) (HCC) Coronary artery disease Hyperlipidemia Hypertension Kidney stone Myocardial infarction (HCC) Times 3 PVD (peripheral vascular disease) (HCC) Skin cancer 06/15/2022 Squamous Cell Carcinoma/ Mole removal Left Mandaen Past Surgical History: Procedure Laterality Date ABDOMINAL AORTIC ANEURYSM REPAIR 07/05/[address] Bal Toribio @ [facility] BRONCHOSCOPY,BIOPSY N/A 05/08/2024 Procedure: EBUS BRONCHOSCOPY, WITH BIOPSY; Surgeon: Sally Samuels MD; Location: [facility]; Service: Pulmonary/Critical Care; Laterality: N/A; BRONCHOSCOPY,BRUSHINGS 05/08/2024 Procedure: BRONCHOSCOPY, WITH BRUSH BIOPSY; Surgeon: Sally Samuels MD; Location: [facility]; Service: Pulmonary/Critical Care;; BRONCHOSCOPY,LAVAGE 05/08/2024 Procedure: BRONCHOSCOPY, WITH BRONCHOALVEOLAR LAVAGE; Surgeon: Sally Samuels MD; Location: [facility];Service: Pulmonary/Critical Care;; BRONCHOSCOPY,TRANSBRONCHIAL NEEDLE ASPIRATION BIOPSY 05/08/2024 Procedure: BRONCHOSCOPY, WITH TRANSBRONCHIAL NEEDLE ASPIRATION BIOPSY; Surgeon: Sally Samuels MD; Location: [facility]; Service: Pulmonary/Critical Care;; CORONARY ARTERY BYPASS GRAFT Coronary Artery Stent Placement SKIN CANCER EXCISION Left 06/15/2022 Left Mandaen/ Squamous Cell Carcinoma Cancer History: Oncology History [...] Radiation Therapy The patient saw No care maintenance team leader to display for radiation treatment. This is the current list ofradiation treatment: Radiation Therapy Treatment Details (05/30/2024 - 09/02/2024) No site specified Technique: VMAT Goal: Curative Planned Treatment Start Date: No planned start date specified Radiation Treatments No radiation treatments to show. (Treatments may have been administered in another system.) 06/10/2024 - 07/15/2024 Chemotherapy Treatment Summary Treatment goal Curative Plan Name [facility] Lung NSCLC - PACLItaxel + CARBOplatin (+ [...] Treatment Summary Treatment goal Curative Plan Name [facility] Lung NSCLC, SCLC - durvalumab (Imfinzi) 1500 [...] tablet (40 mg total) by mouth daily. budesonide-formoteroL (Symbicort) 160-4.5 mcg/actuation inhaler Inhale 2 puffs by mouth 2 (two) times daily Rinse mouth with water after each use. 7.2 g 6 okirkoegjc-oixkrisa-boekfviieb (Breztri Aerosphere) 160-9-4.8 mcg/actuation HFAA Inhale by mouth. furosemide (LASIX) 20 MG tablet Take 1 tablet (20 mg total) by mouth daily. HYDROcodone-acetaminophen (NORCO) 5-325 mg per tablet Take [...] tablet (10 mg total) by mouth daily. metoprolol succinate (TOPROL-XL) [...] if pain unrelieved 5min after 1st dose. sacubitriL-valsartan (ENTRESTO) 24-26 mg tablet Take 0.5 tablets by mouth Half a tablet. spironolactone (ALDACTONE) 25 MG tablet Take 1 tablet (25 mg total) by mouth 2 (two) times daily. zolpidem (AMBIEN) 5 MG tablet Take 1 tablet (5 mg total) by mouth every night as needed. No current facility-administered medications on file prior to visit. Review of Systems: Review of Systems All other systems reviewed and are negative. Vitals: Vitals: 02/24/25 1505 BP: (!) 85/53 Pulse: 74 Resp: 18 Temp: 97.9 ??F (36.6 ??C) SpO2: 96% Weight: 72.4 kg (159 lb 11.2 oz) Height: 1.753 m (5' 9 ) [...] Effort: Pulmonary effort is normal. Breath sounds: Normal breath sounds. Comments: No dullness to percussion in the lung bases bilaterally Abdominal: General: Abdomen is flat. Bowel sounds are normal. Palpations: Abdomen is soft. Comments: No hepatomegaly below the right costal margin Musculoskeletal: General: Normal range of motion. Cervical back: Normal range of motion and neck supple. Comments: He denies any pain in the mid thoracic spine or left lateral rib cage on palpation but has discomfort when he lays on his left side Neurological: General: No focal deficit present. Mental [...] 09/09/2024 23 5 - 37 U/L Final [employer] has become aware of sulfasalazine and sulfapyridine [...] 09/09/2024 26 12 - 78 U/L Final [employer] has become aware of sulfasalazine and sulfapyridine [...] occur prior to administration of the drug. PET/CT Skull Base-Mid Thigh (Whole Body) Result Date: 02/24/2025 PROCEDURE: PET/CT IMAGING, SKULL BASE TO [...] there may be subtle abnormal soft tissue atthis location. There is no additional hypermetabolic thoracic [...] similar to prior exam. There is hypermetabolism inthe medial aspect of the left lower lobe [...] There is no additional hypermetabolic bone lesion. Progression of hypermetabolic airspace disease in the posterior medial left lung, recurrent diseasea concern. New T5 vertebral body lesion as well as increased left fifth rib lesion most consistent with progression of bone metastases. Worsening perihilar opacity on the left, could be treatment related but residual disease is not excluded. Images reviewed, interpreted, and dictated by Dr. Radha Coates. Transcribed by Rosanna Gordon PA-C. CT CHEST WITHOUT IV CONTRAST Result Date: [...] IIB (cT3, cN0, cM0) - Unsigned Plan: I am going to refer him for radiation to the 2 bony lesions at T5 and the fifth rib. Will do a genomic study on his original pathology. Most patients with squamous cell cancers do not have mutations that can serve as a target. I will see him back in several weeks. I have answered his and his 'squestions Renan Rosas MD CAL RECORD CODER documented in this encounter Plan of Treatment Upcoming Encounters Date Type Department Care Team (Late st Contact Info) Description 03/03/2025 11:30 AM EST Appointment [facility] [address] [facility] [address] [place] [address] Mayito Griffin MD [address] [facility] [address] [place] [address] 03/17/2025 9:15 AM EST Office Visit [facility] - [place] [facility] [address] [facility] [address] [place] [address] Dani Pham MD [facility] [address] [place] [address] 05/20/2025 10:45 AM EDT Office Visit [facility] Medicine [address] [place] [address] [address] [place] [address] [place] [address] [place] [address] [address] [place] [phone] 08/19/2025 11:00 AM EDT Appointment [facility] Imaging [address] [place] [phone] [place] [address] [place] [address] [address] [place] [address] 08/19/2025 2:30 PM EDT Office Visit [facility] - [place] [id number] [facility] [address] [place] [address] Dani Pham MD [address] [facility] [address] [place] [address] Scheduled Orders Name Type Priority Associated Diagnoses Orde r Schedule [facility] Genomic Testing - Non-PCL Pathology and Cytology Routine Malignant neoplasm of lower lobe, left bronchus or lung (HCC) Expected: 02/24/2025, Expires: 02/24/2026 Scheduled Referrals Name Type Priority Associated Diagnoses Order Schedule Ambulatory referral to Radiation Oncology Outpatient Referral Routine Malignant neoplasm of lower lobe, left bronchus or lung (HCC) Expected: 02/24/2025, Expires: 02/24/2026 documented as of this encounter Visit Diagnoses Diagnosis Malignant neoplasm of lower lobe, left bronchus or lung (HCC)- Primary documented in this encounter Care Teams General Accounting Clerk Relationship Specialty Start Date End Date Renan Rosas MD [address] [place] [address] [place] [phone] PCP - General General Internal Medicine 04/29/24 Guy Cook MD [address] [facility] [address] [place] [address] Surgeon Cardiothoracic Surgery 04/30/24 Claire Ferguson MD [address] [facility] [address] [place], [place] [id number] Consulting Physician Pulmonary Disease 05/16/24 Dani Pham MD [address] [facility] [address] [place] [address] Medical Oncologist Hematology and Oncology 05/16/24 documented as of this encounter
--- OUTSIDE RECORDS SUMMARY | 2025-02-25 09:27 | XMS_ITS | Clinical Summary ---
Author Organization [employer] ([place], [place], [place], [place], [place]) Address [address] [place] [address] Care Team Providers Care Front End Technician Name Role Phone Renan Rosas MD Primary Care Provider [phone] Guy Cook MD Unavailable [phone] Claire Ferguson MD Unavailable Dani Pham MD Unavailable [phone] Allergies Active Allergy Reactions Criticality Noted [...] pain unrelieved 5min after 1st dose. Active HYDROcodone-ac etaminophen (NORCO) 5-325 mg per tablet Take 1 tablet by mouth every 6 (six) hours as needed for pain. Active budesonide-for moteroL (Symbicort) 160-4.5 mcg/actuation inhaler Inhale 2 puffs by mouth 2 (two) times daily Rinse mouth with water after each use. 7.2 g 6 08/16/19 25 026 Active budesonide-gly copyr-formoter ol (Breztri Aerosphere) 160-9-4.8 mcg/actuation HFAA Inhale by mouth. Active atorvastatin (LIPITOR) 40 MG tablet Take 1 tablet (40 mg total) by mouth daily. 01/20/20 25 Active Jardiance 10 mg tablet Take 1 tablet (10 mg total) by mouth daily. 01/21/20 25 Active furosemide (LASIX) 20 MG tablet Take 1 tablet (20 mg total) by mouth daily. 02/12/20 25 Active sacubitriL-jacinda sartan (ENTRESTO) 24-26 mg tablet Take 0.5 tablets by mouth Half a tablet. 01/22/20 25 Active spironolactone (ALDACTONE) 25 MG tablet Take 1 tablet (25 mg total) by mouth 2 (two) times daily. 01/19/20 25 Active zolpidem (AMBIEN) 5 MG tablet Take 1 tablet (5 mg total) by mouth every night as needed. 02/15/20 25 Active ipratropium-al buteroL (DUO-NEB) 0.5 mg-3 mg(2.5 mg base)/3 mL nebulizer solution Inhale 3 mLs by nebulization every 6 (six) hours as needed for wheezing. Active nicotine (NICODERM CQ) 21 mg/[address] 1 patch on the skin daily. Active simvastatin (ZOCOR) 10 MG tablet Take 1 tablet (10 mg total) by mouth nightly. 025 Discontinued Active Problems Problem Noted Date Diagnosed Date Malignant neoplasm of lower lobe, left bronchus or lung 05/27/2024 Cancer Staging:Clinical stage from 05/16/2024:Stage IIB(cT3, cN0, cM0) - Unsigned Lung mass 05/02/2024 Mass of lower lobe of left lung 04/29/2024 Pneumonia 04/29/2024 COPD (chronic obstructive pulmonary disease) Coronary artery disease Hyperlipidemia Hypertension PVD (peripheral vascular disease) Encounters Date Type Department Care Team Description 02/24/2025 3:15 PM EST Office Visit [facility] - [place] [address] [place] [address] Dani Pham MD Malignant neoplasm of lower lobe, left bronchus or lung (HCC) (Primary Dx) 02/24/2025 10:11 AM EST - 02/24/2025 11:59 PM EST Hospital En[facility] PET CT - [address] [place] [address] Dani Pham MD Malignant neoplasm of lower lobe, left bronchus or lung (HCC) Discharge Disposition: Home or Self Care 02/24/2025 Travel 02/18/2025 2:15 PM EST Office Visit [facility] - [place] [address] [place] [address] Dani Pham MD Malignant neoplasm of lower lobe, left bronchus or lung (HCC) 02/18/2025 1:08 PM EST - 02/18/2025 11:59 PM EST Hospital Encounter [facility] - [place] [address] [place] [address] Mayito Griffin MD Malignant neoplasm of lower lobe, left bronchus or lung (HCC) (Primary Dx) Discharge Disposition: Home or Self Care 02/18/2025 11:07 AM EST - 02/18/2025 1:07 PM EST Hospital En[facility] [address] [place] [address] Dani Pham MD Malignant neoplasm of lower lobe, left bronchus or lung (HCC) Discharge Disposition: Home or Self Care 02/18/2025 Travel 02/17/2025 Telephone [facility] - [place] [address] [place] [address] Ivis Núñez RN from Last 3 Months Family History Medical [...] Mass Index 23.58 02/24/2025 3:05 PM EST Plan of Treatment Upcoming Encounters Date Type Department Care Team (Late st Contact Info) Description 03/03/2025 11:30 AM EST Appointment [facility] - [address] [place] [address] Mayito Griffin MD [address] [place] [address] 03/17/2025 9:15 AM EST Office Visit [facility] - [address] [place] [phone] Dani Pham MD [address] [place] [address] [address] [place] [address] 05/20/2025 10:45 AM EDT Office Visit [facility] Medicine [address] [facility] [address] [place] [phone] Sally Samuels MD [address] [facility] [address] [place] [phone] 08/19/2025 11:00 AM EDT Appointment [address] [address] Dani Pham MD [address] [place] [address] [address] [place] [address] 08/19/2025 2:30 PM EDT Office Visit [facility] - [place] [id number] [facility] [address] [place] [address] Dani Pham MD [address] [place] [address] [address] [place] [address] Health Maintenance Due Date Last Done Comments Hepatitis C Screening 1968 DTAP/TDAP/TD VACCINES (1 - Tdap) 01/26/1968 Pneumococcal 50+ years (1 of 2 - PCV) 01/26/1968 Shingles Vaccine (Zoster) (1 of 2) 1999 Medicare Initial AWV [id number] 10/12/2006 Respiratory Syncytial Virus (RSV) Adult or (1 [...] lower lobe, left bronchus or lung (HCC) CT CHEST WITHOUT IV CONTRAST Routine 02/18/2025 [...] Radha Coates. Transcribed by Rosanna Gordon PA-C. us Dani Pham MD IMG CT ORDERABLES Final Result * CT CHEST WITHOUT IV CONTRAST (02/18/2025 [...] by Rach Durbin PA-C. Dani Pham MD IMG CT ORDERABLES Final Result from Last 3 Months Insurance MEDICARE PART A B Care Teams Front End Technician Relationship Specialty Start Date End Date Renan Rosas MD [address] [facility] [address] [place] [address] PCP - General General Internal Medicine 04/29/24 [place] [address] [place] [address] [address] [place] [id number] Surgeon Cardiothoracic Surgery 04/30/24 [place] [address] [place] [address] [address] [place] [address] Consulting Physician Pulmonary Disease 05/16/24 Dani Pham MD [facility] [address] [address] Medical Oncologist Hematology and Oncology 05/16/24
--- OUTSIDE RECORDS SUMMARY | 2025-02-25 09:27 | XMS_ITS ---
Author Organization [employer] ([place], [place], [place], [place], [place]) Address [address] [place] [address] Care Team Providers Care Windows Phone Developer Name Role Phone Renan Rosas MD Primary Care Provider [phone] Guy Cook MD Unavailable [phone] Claire Ferguson MD Unavailable Dani Pham MD Unavailable [phone] Active Problems Problem Noted Date Diagnosed Date Malignant neoplasm of lower lobe, left bronchus or lung 05/27/2024 Cancer Staging:Clinical stage from 05/16/2024:Stage IIB(cT3, cN0, cM0) - Unsigned Lung mass 05/02/2024 Mass of lower lobe of left lung 04/29/2024 Pneumonia 04/29/2024 COPD (chronic obstructive pulmonary disease) Coronary artery disease Hyperlipidemia Hypertension PVD (peripheral vascular disease) Current Treatment and Therapy Plans [facility] LINE CARE - USE WITH INFUSIONS* Plan Start Date:06/10/2024 Linked Problems Malignant neoplasm of lower lobe, left bronchus or lung (HCC) Treatment Medications alteplase (CATHFLO) 2 mg in SW 2 mL syringe [facility] Lung NSCLC, SCLC - durvalumab (Imfinzi) 1500 [...] Treatment Medications Discontinue Reason Plan Provider Cycles [facility] Lung NSCLC - PACLItaxel + CARBOplatin (+ XRT) days 1,8,15,22,29, and 36 5 07/16/2024 CARBOplatin (PARAPLATIN) chemo infusion (by AUC) Injdexamethasone (DECADRON) IVPBgranisetron (KYTRIL)PACLitaxel (TAXOL) chemo infusionsodium chloride 0.9 % (NS) Therapy Complete Dani Pham MD 1 of 1 cycle started
--- OUTSIDE RECORDS SUMMARY | 2025-02-25 09:27 | XMS_ITS | Encounter Summary ---
Author Organization [employer] ([place], [place], [place], [place], [place]) Address [address] [place] [address] Care Team Providers Care Systems Test Analyst Name Role Phone Renan Rosas MD Primary Care Provider [phone] Guy Cook MD Unavailable [phone] Claire Ferguson MD Unavailable Dani Pham MD Unavailable [phone] Encounter Details Date Type Department Care Team (Late st Contact Info) Description 02/17/2025 Telephone [facility] - [place] [address] [place] [address] Ivis Núñez RN Social History Tobacco Use Types Packs/Day Years Used Date Smoking Tobacco: Every Day Cigarettes 1 57 Started: 1970 Smokeless Tobacco: Never Alcohol Use Standard Drinks/Week [...] Info) Description 03/03/2025 11:30 AM EST Appointment [facility] - [address] [place] [address] Mayito Griffin MD [address] [place] [address] 03/17/2025 9:15 AM EST Office Visit [facility] - [place] [address] [place] [phone] Dani Pham MD [address] [place] [address] [address] [place] [address] 05/20/2025 10:45 AM EDT Office Visit [facility] Pulm & Critical Care Medicine [address] [place] [address] [address] [place] [address] Sally Samuels MD [address] [place] [address] [address] [place] [address] 08/19/2025 11:00 AM EDT Appointment [facility] CT [address] [address] Dani Pham MD [address] [place] [address] [address] [place] [address] 08/19/2025 2:30 PM EDT Office Visit [facility] - [place] [address] [place] [address] Dani Pham MD [facility] [address] [place] [address] [place] [address] documented as of this encounter Visit Diagnoses Not on filedocumented in this encounter Care Teams Systems Test Analyst Relationship Specialty Start Date End Date Renan Rosas MD [address] [place] [address] PCP - General General Internal Medicine 04/29/24 Guy Cook MD [address] [facility] [address] [place] [address] Surgeon Cardiothoracic Surgery 04/30/24 Claire Ferguson MD [address] [facility] [address] [place], [place] [id number] Consulting Physician Pulmonary Disease 05/16/24 Dani Pham MD [facility] [address] [place] [address] Medical Oncologist Hematology and Oncology 05/16/24 documented as of this encounter
--- OUTSIDE RECORDS SUMMARY | 2025-02-25 09:27 | XMS_ITS | Referral Summary ---
Author Organization [employer] ([place], [place], [place], [place], [place]) Address [address] [place] [address] Care Team Providers Care Industrial Maintenance Mechanic Name Role Phone Renan Rosas MD Primary Care Provider [phone] Guy Cook MD Unavailable [phone] Claire Ferguson MD Unavailable Dani Pham MD Unavailable [phone] Encounters Date Type Department Care Team Description 02/24/2025 Travel 02/24/2025 10:11 AM EST - 02/24/2025 11:59 PM EST Hospital Encounter [facility] Regional Imaging PET CT - [facility] [address] [facility] [address] [place] [address] Dani Pham MD Malignant neoplasm of lower lobe, left bronchus or lung (HCC) Discharge Disposition: Home or Self Care 02/24/2025 3:15 PM EST Office Visit [facility] [address] [place] [address] Dani Pham MD Malignant neoplasm of lower lobe, left bronchus or lung (HCC) (Primary Dx) 02/18/2025 Travel 02/18/2025 11:07 AM EST - 02/18/2025 1:07 PM EST Hospital Encounter [facility] CT Imaging [address] [place] [address] Dani Pham MD Malignant neoplasm of lower lobe, left bronchus or lung (HCC) Discharge Disposition: Home or Self Care 02/18/2025 1:08 PM EST - 02/18/2025 11:59 PM EST Hospital Encounter [facility] [address] [place] [address] Mayito Griffin MD Malignant neoplasm of lower lobe, left bronchus or lung (HCC) (Primary Dx) Discharge Disposition: Home or Self Care 02/18/2025 2:15 PM EST Office Visit [facility] [address] [place] [address] Dani Pham MD Malignant neoplasm of lower lobe, left bronchus or lung (HCC) 02/17/2025 Telephone [facility] [address] [place] [address] Ivis Núñez RN from Last 3 Months Allergies Active Allergy [...] 1 57 Started: 1970 Smokeless Tobacco: Never Tobacco Cessation:Ready to Q [...] Info) Description 03/03/2025 11:30 AM EST Appointment [facility] [address] [place] [address] Mayito Griffin MD [address] [place] [address] 03/17/2025 9:15 AM EST Office Visit [facility] [address] [facility] [address] [place] [address] Dani Pham MD [address] [place] [address] 05/20/2025 10:45 AM EDT Office Visit [facility] Medicine [address] [place] [address] [address] [place] [address] Sally Samuels MD [address] [place] [address] [address] [place] [address] 08/19/2025 11:00 AM EDT Appointment [facility] CT Imaging [address] [place] [address] Dani Pham MD [address] [facility] [address] [place] [address] 08/19/2025 2:30 PM EDT Office Visit [facility] - [facility] [address] [place] [address] [address] [place] [address] Dani Pham MD [address] [facility] [address] [place] [address] Procedures Procedure Name Priority Date/Time Associated Diagnosis [...] by Rosanna Gordon PA-C. Dani Pham MD [facility] CT ORDERABLES Final Result * CT CHEST [...] 3 Months Insurance [place] [address] [place] [id number] Care Teams Industrial Maintenance Mechanic Relationship Specialty Start Date End Date Renan Rosas MD [address] [place] [address] [place] [address] PCP - General General Internal Medicine 04/29/24 Guy Cook MD [address] [facility] [address] [place] [address] Surgeon Cardiothoracic Surgery 04/30/24 Claire Ferguson MD [address] [facility] [address] [place], [place] [id number] Consulting Physician Pulmonary Disease 05/16/24 Dani Pham MD [address] [facility] [address] [place] [address] Medical Oncologist Hematology and Oncology 05/16/24
--- OUTSIDE RECORDS SUMMARY | 2025-02-25 09:28 | XMS_ITS | Encounter Summary ---
Author Organization [employer] ([place], [place], [place], [place], [place]) Address [address] [place] [address] Care Team Providers Care Launchman Name Role Phone Renan Rosas MD Primary Care Provider [phone] Guy Cook MD Unavailable [phone] Claire Ferguson MD Unavailable Dani Pham MD Unavailable [phone] Encounter Details Date Type Department Care Team (Latest Contact Info) Description 02/18/2025 Travel Social History Tobacco Use Types Packs/Day [...] Info) Description 03/03/2025 11:30 AM EST Appointment [facility] [address] [place] [address] Mayito Griffin MD [address] [place] [address] 03/17/2025 9:15 AM EST Office Visit [facility] [address] [place] [address] Dani Pham MD [facility] [place] [address] [place] [address] 05/20/2025 10:45 AM EDT Office Visit [facility]m & Critical [facility] Medicine [address] [facility] [address] [place] [address] [place] [address] [place] [address] [address] [place] [address] 08/19/2025 11:00 AM EDT Appointment [address] [address] Dani Pham MD [facility] [address] [place] [address] 08/19/2025 2:30 PM EDT Office Visit [facility] [address] [place] [address] Dani Pham MD [facility] [address] [place] [address] documented as of this encounter Visit Diagnoses Not on filedocumented in this encounter Care Teams Launchman Relationship Specialty Start Date End Date Renan Rosas MD [address] [place] [address] [place] [address] PCP - General General Internal Medicine 04/29/24 Guy Cook MD [address] [facility] [address] [place] [address] Surgeon Cardiothoracic Surgery 04/30/24 Claire Ferguson MD [address] [facility] [address] [place], [place] [id number] Consulting Physician Pulmonary Disease 05/16/24 Dani Pham MD [address] [facility] [address] [place] [address] Medical Oncologist Hematology and Oncology 05/16/24 documented as of this encounter
--- OUTSIDE RECORDS SUMMARY | 2025-02-25 09:29 | XMS_ITS | Encounter Summary ---
Author Organization [employer] ([place], [place], [place], [place], [place]) Address [address] [place] [address] Care Team Providers Care Silk Finisher Name Role Phone Renan Rosas MD Primary Care Provider [phone] Guy Cook MD Unavailable [phone] Claire Ferguson MD Unavailable Dani Pham MD Unavailable [phone] Encounter Details Date Type Department Care Team (Latest Contact Info) Description 02/24/2025 Travel Social History Tobacco Use Types Packs/Day [...] Info) Description 03/03/2025 11:30 AM EST Appointment [facility] [address] [place] [address] Mayito Griffin MD [address] [place] [address] 03/17/2025 9:15 AM EST Office Visit [facility] [address] [place] [address] Dani Pham MD [facility] [place] [address] [place] [address] 05/20/2025 10:45 AM EDT Office Visit [facility] Medicine [address] [facility] [address] [place] [address] [place] [address] [place] [address] [address] [place] [address] 08/19/2025 11:00 AM EDT Appointment [address] [address] Dani Pham MD [facility] [address] [place] [address] 08/19/2025 2:30 PM EDT Office Visit [facility] [address] [place] [address] Dani Pham MD [facility] [address] [place] [address] documented as of this encounter Visit Diagnoses Not on filedocumented in this encounter Care Teams Silk Finisher Relationship Specialty Start Date End Date Renan Rosas MD [address] [place] [address] [place] [address] PCP - General General Internal Medicine 04/29/24 Guy Cook MD [address] [facility] [address] [place] [address] Surgeon Cardiothoracic Surgery 04/30/24 Claire Ferguson MD [address] [facility] [address] [place], [place] [id number] Consulting Physician Pulmonary Disease 05/16/24 Dani Pham MD [address] [facility] [address] [place] [address] Medical Oncologist Hematology and Oncology 05/16/24 documented as of this encounter
--- NOTE | 2025-02-25 09:30 | CT_ITS ---
FINAL REPORT TECHNIQUE: Thin section axial images were obtained through the abdomen after contrast injection per CT angiogram protocol. Multiplanar reconstruction images were obtained from the axial data. This exam was performed with techniques to keep radiation dose as low as reasonably achievable. This includes automated exposure control, adjustment of the MA and KVP, and iterative reconstruction technique. CLINICAL HISTORY: AAA repair x 18 yrs ago COMPARISON: None FINDINGS: CTA: No abdominal aortic aneurysm or aortic dissection. There is atherosclerotic disease present in the abdominal vessels with calcifications, and a few surgical clips are present peritoneum. The celiac axis and superior mesenteric artery are patent with a few calcifications identified, without significant stenosis. The inferior mesenteric artery is not identified. There is mild bilateral renal artery stenosis identified secondary to calcified plaque. The common iliac arteries and visualized portions of the internal and external iliac arteries are patent. No significant stenosis. NONVASCULAR: Left lower lobe atelectasis is present. The gallbladder is present. The solid abdominal organs are without acute abnormality. There is a right renal lesion measuring 21 mm in size that is hyperdense precontrast, which does not represent a simple cyst. The GI tract is without acute abnormality. No lymphadenopathy or free fluid. No acute osseous abnormality. IMPRESSION: 1. No evidence of abdominal aortic aneurysm or dissection. 2. Mild bilateral renal artery stenosis is present. 3. The ANNA is not identified. Reviewed, Interpreted and Dictated by Radha Coates MD Transcribed by Nicol Irizarry Authenticated and [facility]
[2025-02-25] MEDS: IOPAMIDOL-370 (76%);100ML BOTTLE 80 ML IV (09:52)
[2025-02-25] MEDS: 0.9 % SODIUM CHLORIDE 50 ML VIAL IV (09:52)
[2025-02-25] MEDS: SODIUM CHLORIDE 0.9% 10ML SYR (RAD ONLY) 10 ML IV (09:52)
== END 2025-02-25 23:59 | disposition home or self-care (01) ==
LOC: RAD 09:25
PROVIDERS: PCP Internal Medicine; Visit Provider Nurse Practitioner Family
DX: I70.1 Atherosclerosis of renal artery (principal); I71.21 Aneurysm of the ascending aorta, without rupture; Z98.890 Other specified postprocedural states; Z86.79 Personal history of other diseases of the circulatory system
CPT/HCPCS: 74175; Q9967